=== PATIENT | female | born 2005 | race Caucasian/White ===

== ENCOUNTER 2024-09-20 12:47 | Outpatient (CLI) | payer OTHER, SELFPAY | END 2024-09-20 12:48 | disposition home or self-care (01) | LOC: AMB 09-21 13:35 | PROVIDERS: Visit Provider Family Medicine | DX: R45.851 Suicidal ideations (principal) | CPT/HCPCS: A0425; A0429 ==

== ENCOUNTER 2024-09-20 13:04 | Emergency (ER) | payer OTHER, SELFPAY ==
--- OUTSIDE RECORDS SUMMARY | 2024-08-21 10:20 | XMS_ITS | Encounter Summary ---
Author Organization [facility] Address [address] [place] [address] Support Name Relationship Address Phone Lawrence Yatessch Emergency Contact [address] [place] [address] Lawrence Holloway Emergency Contact [address] [place] [address] Jackie Bailon Personal Relationship [address] [place] [address] Care Team Providers Care Cat Scan Technologist Name Role Phone Maryam Barker M.D. Primary Care Provider Reason for Referral * Behavioral Health (Routine) - Closed Specialty Diagnoses / Procedures Referred By John duarte Referred To Contact Psychiatry / Psychiatry and Psychology Diagnoses Mood Disorder Terrance Bass M.D. [address] [address] Phone: tel: fax: [facility] Referral ID Status Reason Start Date Expiration Date V isits Requested Visits Authorized [id number] Closed Specialty Services Required 08/21/2024 02/20/2026 1 1 Reason for Visit * Appointment Request (Routine) - Closed Specialty Diagnoses / Procedures Referred By John duarte Referred To Contact Family Medicine Referral ID Status Reason Start Date Expiration Date Visits Re quested Visits Authorized [id number] Closed 08/13/2024 11/13/2025 1 1 Encounter Details Date Type Department Care Team (Late st Contact Info) Description 08/21/2024 10:20 AM CDT Office Visit Department of Family Medicine, [facility], in [place], [place] [address] [place] [address] Terrance Bass M.D. [address] [place] [address] Mood Disorder (Primary Dx); Seizure Absence (HCC) Social History Tobacco Use Types Packs/Day Years Used Date Smoking Tobacco: Never Smokeless Tobacco: Never Tobacco Cessation:Counseling Given: Not Answered Alcohol Use Standard Drinks/Week Comments Never 0 (1 standard drink = 0.6 oz pur e alcohol) [facility] Utilities Answer Date Recorded In the past 12 months has th e electric, gas, oil, or water company threatened to shut off services in your home? No 08/17/2024 PHQ-2 Answer Date Recorded PHQ-2 Score 5 09/04/2024 Exercise Vital Sign Answer Date Recorde d On average, how many days pe r week do you engage in moderate to strenuous exercise (like a brisk walk)? 3 days 08/17/2024 On average, how many minutes do you engage in exercise at this level? 20 min 08/17/2024 Hunger Vital Sign Answer Date Recorded Within the past 12 months, y ou worried that your food would run out before you got the money to buy more. Patient declined Within the past 12 months, t he food you bought just didn't last and you didn't have money to get more. Patient declined PRAPARE - Transportation Answer Date Re corded In the past 12 months, has l ack of transportation kept you from medical appointments or from getting medications? Patient declined 08/17/2024 In the past 12 months, has l ack of transportation kept you from meetings, work, or from getting things needed for daily living? Patient declined 08/17/2024 Depression Answer Date Recor ded PHQ-9 Total Score (max 27) 20 09/04 Nutrition Answer Date Recorded On average, how many serving s of fruits and vegetables do you eat per day (serving size is equal to 1 cup or approximately the size of a tennis ball)? 0-2 08/17/2024 Dental Answer Date Recorded Dental: Regular Dentist No 07/22/19 Employment Answer Date Recorded Employment status Unemployed/not in th e paid workforce and NOT seeking employment 08/17/2024 Housing Stability Answer Date Recorded What is your living situation today? I have a [facility] place to live 08/17/2024 Comments No Sex and Gender Information Value Date Recorded Sex Assigned at Female 07/22/2023 4:04 PM CDT Legal Sex Female 10:39 AM CDT Gender Identity Female 07/22/2023 4:04 PM CDT Sexual Orientation Straight 07/22/2023 4: 04 PM CDT documented as of this encounter Last Filed Vital Signs Vital Sign Reading Time Taken Comments Blood Pressure 114/75 08/21/2024 10:02 AM CDT Pulse 75 08/21/2024 10:02 AM CDT Temperature 36.3 C (97.4 F) 08/21/2024 10:02 AM CDT Respiratory Rate - - Oxygen Saturation - - Inhaled Oxygen Concentration - - Weight 64.4 kg (141 lb 15.6 oz) 025 10:02 AM CDT Height 164.5 cm (5' 4.76) 08/21/2024 1 0:02 AM CDT Body Mass Index 23.8 08/21/2024 10:02 AM CDT documented in this encounter Progress Notes * Terrance Bass M.D. - 08/21/2024 10:20 AM CDT DATE OF VISIT: 08/21/2024 SUBJECTIVE CHIEF COMPLAINT / REASON FOR VISIT Vivian Holloway is a 18 y.o. female who presents for evaluation of No chief complaint on file.. The patient verbally consented to an audio recording of their visit to assist with the completion of documentation. 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 She has experienced significant mood swings since her teenage years. Her mother notes that when shelived with her, she would become upset when asked to do things she did not want to do, often bringing up past issues and exhibiting violent behavior such as slamming doors. Since moving in with her father, her behavior has improved, but she still shows defiance, particularly as she becomes more comfortable with her new living situation. Her siblings can trigger her anger, which she holds onto forextended periods, often bringing up past arguments during unrelated disputes. There is a family history of mental health issues, including depression, anxiety, borderline personality disorder, and bipolar disorder. Her mother has anxiety and depression, her aunt has borderlinepersonality disorder, and her father and grandfather have bipolar disorder. She has a history of cutting, with incidents occurring last year, although there have been no suicidal attempts, only threats, which were also last year. She is currently on Depakote and Zonegran for seizures, which have never been fully controlled. Herseizures are characterized by a blank stare and rolling her eyes back, sometimes resulting in her falling over. She has a follow-up appointment with her neurologist scheduled for October 27. Her appetite is reported as good, and she eats three meals a day. However, when she lived with her mother, she often isolated herself in her room, avoided meals, and experienced a constant state of tiredness, sleeping only a few hours at a time. REVIEW OF SYSTEMS Please see HPI for pertinent positives, otherwise rest of ROS negative. OBJECTIVE VITAL SIGNS BP 114/75 (BP Location: Right arm, Patient Position: Sitting, Cuff Size: Regular) Pulse 75 Temp36.3 ??C (Temporal) Ht 164.5 cm Wt 64.4 kg LMP 07/28/2024 (Within Days) BMI 23.80 kg/m?? Physical Exam General: Alert and oriented x3. Appears in no acute distress. HEENT: Pupils equally round and reactive to light and accommodation. Extraocular movements are intact. Fundi exam appeared normal. Tympanic membranes are clear bilaterally. Oropharynx is free from erythema or exudate. Neck: Supple without any lymphadenopathy. No thyromegaly. Nontender. Cardiovascular: Heart regular rate and rhythm without any murmurs, rubs, or gallops. Respiratory: Lungs clear to auscultation bilaterally. 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 Family history of mental health disorders. Psychiatric referral needed for evaluation and management. - Refer to psychiatrist in [place] for mood disorder management. - Coordinate psychiatric and neurology appointments in October. - Discuss genetic testing for medication guidance. Orders: Psychiatry and Psychology - General consult (clinic); Future Seizure Absence (HCC) Seizures with blank stares and eye rolling, not controlled by Depakote and Zonegran. Under neurologist care. - Continue Depakote and Zonegran. - Follow up with neurologist on October 27. documented in this encounter Miscellaneous Notes * Assessment & Plan Note - Terrance Bass M.D. - 08/21/2024 10:20 AM CDT Associated Problem(s): Seizure Absence (HCC) Seizures with blank stares and eye rolling, not controlled by Depakote and Zonegran. Under neurologist care. - Continue Depakote and Zonegran. - Follow up with neurologist on October 27. documented in this encounter Plan of Treatment Upcoming Encounters Date Type Department Care Team (Latest Contact Info) Description 10/26/2024 9:30 AM CDT Appointment Department of Neurology in [address] [phone] Jie Mcintyre M.D. [address] [place] [phone] Discharge Disposition: Home or Self Care 10/27/2024 12:00 PM CDT Clinical Communication Virtual Review in [place], [place] [address] [place] [address] 10/29/2024 3:30 PM CDT Telemedicine Department of Neurology in [address] [phone] Jie Mcintyre M.D. [address] [place] [phone] 11/17/2024 11:00 AM CDT Comprehensive Visit Department of Neurology in [address] [phone] Alberto Holcomb M.D. [address] [place] [address] Scheduled Referrals Name Type Priority Associated Diagnoses Order Schedule Psychiatry and Psychology - General consult (clinic) Outpatient Referral Routine Mood Disorder (HCC) Expected: 08/21/2024, Expires: 11/20/2025 documented as of this encounter Visit Diagnoses Diagnosis Mood Disorder- Primary Seizure Absence (HCC) documented in this encounter Additional Health Concerns Assessment Noted Time PHQ-9 Depression Total Score: 17 023 1:22 PM DIVISION ENGINEER documented as of this encounter Care Teams Cat Scan Technologist Relationship Specialty Start Date End Date Maryam Barker M.D. [address] [place] [phone] PCP - General Family Medicine 01/29/23 documented as of this encounter
--- OUTSIDE RECORDS SUMMARY | 2024-09-13 16:25 | XMS_ITS | Encounter Summary ---
Author Organization [facility] Address [address] [place] [address] Support Name Relationship Address Phone Lawrence Amie Emergency Contact [address] [place] [address] Lawrence Holloway Emergency Contact [address] [place] [address] Jackie Bailon Personal Relationship [address] [place] [address] Care Team Providers Care Golf Course Starter Name Role Phone Maryam Barker M.D. Primary Care Provider Reason for Visit * Reason Comments Mental Health Problem Encounter Details Date Type Department Care Team ([facility] st Contact Info) Description 09/13/2024 4:25 PM CDT - 09/13/2024 11:59 PM CDT Emergency [facility] [address] [place] [phone] Discharge Disposition: Home or Self Care Social History Tobacco Use Types Packs/Day Years Used Date Smoking Tobacco: Never Smokeless Tobacco: Never Alcohol Use Standard Drinks/Week Comments Never 0 (1 standard drink = 0.6 oz pur e alcohol) [facility] Utilities Answer Date Recorded In the past 12 months has [employer], gas, oil, or water company threatened to [...] Date Recorded Dental: Regular Dentist No 07/22/19 24 Employment Answer Date Recorded Employment status Unemployed/not in e paid workforce and NOT seeking employment 08/17/2024 Housing Stability Answer Date Recorded What is your living situation today? I have a [facility] place to live 08/17/2024 Comments No Sex [...] AM CDT Appointment Department of Neurology in [place], [place] [address] [place] [phone] Jie Mcintyre M.D. [address] [place] [phone] Discharge Disposition: Home or Self Care 10/27/2024 12:00 PM CDT Clinical Communication Virtual Review in [place], [place] [address] [place] [phone] 10/29/2024 3:30 PM CDT Telemedicine Department of Neurology in [place], [place] [address] [place] [phone] Jie Mcintyre M.D. [address] [place] [phone] 11/17/2024 11:00 AM CDT Comprehensive Visit Department of Neurology in [place], [place] [address] [place] [phone] Alberto Holcomb M.D. [address] [place] [phone] documented as of this encounter Visit Diagnoses Not on filedocumented in this encounter Additional Health Concerns Assessment Noted Time PHQ-9 Depression Total Score: 20 025 2:11 PM CDT documented as of this encounter Care Teams Golf Course Starter Relationship Specialty Start Date End Date Maryam Barker M.D. NPGreer: [phone] [address] [place] [phone] PCP - General Family Medicine 01/29/23 documented as of this encounter
[2024-09-20 13:21] VITALS: BP 111/76; PULSE 74; RESP 16; TEMP 36.3; O2SAT 98
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
--- OUTSIDE RECORDS SUMMARY | 2024-09-20 15:24 | XMS_ITS | Clinical Summary ---
Author Organization [facility] Address [address] [place] [id number] Care Team Providers Care Requirements Engineer Name Role Phone Maryam Barker MD Primary Care Provi sary Allergies No known active allergies Medications No known medications Active Problems Problem Noted Date Diagnosed Date Intellectual delay 09/13/2024 Encounters Date Type Department Care Team Description 09/13/2024 4:25 PM CDT - 09/13/2024 6:45 PM CDT Emergency [facility] [address] [place] [id number] Chris Urias MD Suicidal behavior without attempted self-injury (Primary Dx); Intellectual delay Discharge Disposition: Home Self Care 09/13/2024 Travel from Last 3 Months Social History Tobacco Use Types Packs/Day Years Used Date Smoking Tobacco: Never Assessed Interpersonal Safety Answer Date Record ed Are you being hit, kicked, p ushed or yelled at (see row info)? No 09/13/2024 Interpersonal Safety Abuse 12 - 18 Not on file 09/13/2024 Interpersonal Safety Ambulatory Vulnerability No t on file 09/13/2024 Comments No Sex and Gender Information Value Date Recorded Sex Assigned at Not on file Legal Sex Female 11:01 AM CDT Gender Identity Not on file Sexual Orientation Not on file Last Filed Vital Signs Vital Sign Reading Time Taken Comments Blood Pressure 97/68 09/13/2024 4:25 PM CDT Pulse 98 09/13/2024 4:25 PM CDT Temperature 36.5 C (97.7 F) 09/13/2024 4:25 PM CDT Respiratory Rate 16 09/13/2024 4:25 PM CDT Oxygen Saturation 97% 09/13/2024 4:25 PM CDT Inhaled Oxygen Concentration - - Weight - - Height - - Body Mass Index - - Plan of Treatment Not on file Insurance * Guarantor: Vivian Holloway Account Type Relation to Patient Date of Phone Billing Address Personal/Family Self 2005 [address] [place] [address] [facility] Member Subscriber Plan / Payer (Ef fective 2023-Present) Name:Vivian Holloway Member ID:[id number] Relation to Subscriber:Child Name:Anastasiya Holloway Subscriber ID:[id number] Date of :1984 (Home) Address: [facility] [address] [place] [id number] Payer ID:[id number] (NAIC) Type:Not on file Address: [facility] [address] [place] [address] Care Teams Requirements Engineer Relationship Specialty Start Date End Date Maryam Barker MD [address] [place] [address] PCP - General Family Practice 09/13/24
--- OUTSIDE RECORDS SUMMARY | 2024-09-20 15:24 | XMS_ITS | Clinical Summary ---
Author Organization [facility] Address [address] [place] [address] Support Name Relationship Address Phone Elijah Chapman Emergency Contact [address] [place] [address] Elijah Chapman Emergency Contact [address] [place] [address] Jackie Bailon Personal Relationship [address] [place] [address] Care Team Providers Care Loadmaster Name Role Phone Maryam Barker M.D. Primary Care Provider Source Comments Patient records contain information from all sites at [facility]. For routine questions regarding patient records, call [phone] during business hours, M-F 8:00 AM - 5:00 PM Central Time. Record requests for emergency care only can be directed to [phone] at any time.[facility] Allergies Active Allergy Reactions Criticality Noted Date Comments Lamotrigine Rash Medium 11/23/2018 Medications * This document contains information received from the source organization and may not represent a complete record from that organization. zonisamide (Zonegran) 100 mg capsule 4 take 400 mg (4 capsules) at night 360 capsule 2 06/09/2024 Active divalproex (Depakote ER) 250 mg 24 hr tablet Take 3 tablets by mouth 2 (two) times a day. 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 Under neurologist care. - Continue Depakote and Zonegran. - Follow up with neurologist on October 27. Encounters * This document contains information received from the source organization and may not represent a complete record from that organization. Date Type Department Care Team Description 09/13/2024 4:25 PM CDT - 09/13/2024 11:59 PM CDT Emergency [facility] [address] [place] [address] Discharge Disposition: Home or Self Care 08/21/2024 10:20 AM CDT Office Visit Department of Family Medicine, [facility], in [place], [place] [address] [phone] Terrance Bass M.D. Mood Disorder (Primary Dx); Seizure Absence (HCC) 08/04/2024 Orders Only Department of Neurology in [place], [place] [address] [place] [address] Jie Mcintyre M.D. Epilepsy Seizure Generalized Nonconvulsive (HCC) (Primary Dx) 07/23/2024 Clinical Communication Department of Neurology in [place], [place] [address] [place] [address] Jie Mcintyre M.D. from Last 3 Months Immunizations Immunization Administration Dates Next Due DTaP (Infanrix, Tripedia) 12/30/2008,11/21/2005 DTaP / Hep B / IPV (Pediarix) 05/24/2005, 005,2004 HepA, Unspecified 10/07/2008,03/02/2008 HepB Pediatric/Adolescent 2004 Hib (HbOC) (discontinued) 11/21/2005,03/27/2005, 2004 Hib, Unspecified 12/30/2008,2004 IPV 12/30/2008,11/21/2005 Influenza, Seasonal, Injectable 04/03/2007,03/06 Influenza, Unspecified 03/12/2012,04/07/2010 MMR 12/30/2008 MMRV 11/21/2005 PCV7 (discontinued) 03/02/2008,05/24/2005,2004,2004 Family History Medical History Relation Name Comments Seizures Brother 1 Generalized Ton ic-Clonic, random in frequency ADD Brother 3 kirus Asthma Brother 3 kirus Seizures Brother 3 kirus ADD Brother 4 buddhist Asthma Brother 4 buddhist Bipolar disorder Father 1 Foreign Suicide Attempts Father 2 elijah RA - Rheumatoid arthritis Father's Sister Autism spectrum disorder Maternal Cousin 1 Heart Maternal Grandfather Pancreatic cancer Maternal Grandmother 1 Stage 4 Depression Maternal Grandmother 2 forrest Pancreatic cancer Maternal Grandmother 2 forrest Thyroid disease Maternal Grandmother 2 forrest ADD Mother 2 mohan Asthma Mother 2 mohan Depression Mother 2 mohan Learning disorder Mother 2 mohan out grew l earning disorder before graduating in 03 Thyroid disease Mother 2 mohan RA - Rheumatoid arthritis Mother's Sister 1 RA - Rheumatoid arthritis Mother's Sister 2 Thyroid disease Mother's Sister 3 aisha Bipolar disorder Paternal Grandfather COPD Paternal Grandmother Seizures Sister 1 Ally Absence at firs t, now adolescent seizure disorder Depression Sister 2 jammie Seizures Sister 2 jammie Relation Name Status Comments Brother 1 Alive Brother 2 Alive Brother 3 kirus Alive Brother 4 buddhist Alive Father 1 Foreign Father 2 elijah Alive Addiction Father's Sister Alive Half-Brother Alive Maternal Cousin 1 Alive Maternal Cousin 2 Alive A/W Maternal Cousin 3 Alive Maternal Grandfather Alive No curr ent contact Maternal Grandmother 1 Alive Maternal Grandmother 2 forrest Alive Mother 1 Lenny Alive IEP growing up Mother 2 mohan Alive Mother's Sister 1 Alive Mother's Sister 2 Alive Mother's Sister 3 aisha Alive Other 1 Alive Other 2 Alive Paternal Cousin 1 Alive Paternal Cousin 2 Alive Paternal Grandfather Alive Paternal Grandmother Alive Sister 1 Ally Alive WGS in progress Comprehension issues but doing well with support Sister 2 jammie Alive Social History Tobacco Use Types Packs/Day Years Used Date Smoking Tobacco: Never Smokeless Tobacco: Never Tobacco Cessation:Counseling Given: Not Answered Alcohol Use Standard Drinks/Week Comments Never 0 (1 standard drink = 0.6 oz pur e alcohol) [facility] Utilities Answer Date Recorded In the [...] your living situation today? I have a [facility] place to live 08/17/2024 Comments No Sex and Gender Information Value Date Recorded Sex Assigned at Female 07/22/2023 4:04 PM CDT Legal Sex Female 10:39 AM CDT Gender Identity Female 07/22/2023 4:04 PM CDT Sexual Orientation Straight 07/22/2023 4: 04 PM CDT Last Filed Vital Signs Vital Sign Reading Time Taken Comments Blood Pressure 107/73 09/04/2024 2:10 PM CDT Pulse 76 09/04/2024 2:10 PM CDT Temperature 36.3 C (97.4 F) 08/21/2024 10:02 AM CDT Respiratory Rate 15 04/10/2023 1:26 PM [employer]LECT[employer]ICIAN TELE[employer] Oxygen Saturation - - Inhaled Oxygen Concentration - - Weight 61.9 kg (136 lb 7.4 oz) 09/04/2024 2:10 P M CDT Height 163 cm (5' 4.17) 09/04/2024 2:10 PM CDT Body Mass Index 23.3 09/04/2024 2:10 PM CDT Plan of Treatment Upcoming Encounters Date Type Department Care Team (Latest Contact Info) Description 10/26/2024 9:30 AM CDT Appointment Department of Neurology in [address] [phone] Jie Mcintyre M.D. [address] [place] [phone] Discharge Disposition: Home or Self Care 10/27/2024 12:00 PM CDT Clinical Communication Virtual Review in [place], [place] [address] [place] [address] 10/29/2024 3:30 PM CDT Telemedicine Department of Neurology in [address] [address] Jie Mcintyre M.D. [address] [place] [phone] 11/17/2024 11:00 AM CDT Comprehensive Visit Department of Neurology in [address] [address] Alberto Holcomb M.D. [address] [place] [phone] Health Maintenance Due Date Last Done Comments Hepatitis C Screening 2004 TB Screening during Well Child Visit 2004 1 week Well Child Check-Up 2004 1 month Well Child Check-Up 2004 2 month Well Child Check-Up 2004 4 month Well Child Check-Up 02/12/2005 9 month Well Child Check-Up 07/13/2005 15 month Well Child Check-Up 01/13/2006 18 month Well Child Check-Up 04/14/2006 2 year Well Child Check-Up 10/13/2006 30 month Well Child Check-Up 04/14/2007 3 year Well Child Check-Up 10/14/2007 Well Child Check-Up Completed in Past Year 10/14/2007 Varicella Vaccines (2 of 2 - 2-dose childhood series) 01/27/2009 11/21/2005 5 year Well Child Check-Up 10/13/2009 6 year Well Child Check-Up 10/13/2010 7 year Well Child Check-Up 10/14/2011 8 year Well Child Check-Up 10/13/2012 10 year Well Child Check-Up 10/13/2014 DTaP,Tdap,and Td Vaccines (6 - Tdap) 11/13/2015 12/30/2008, 11/21/2005, 05/24/2005, Additional history exists 12 year Well Child Check-Up 10/13/2016 13 year Well Child Check-Up 10/13/2017 14 year Well Child Check-Up 10/13/2018 15 year Well Child Check-Up 10/14/2019 HPV Vaccines (1 - 3-dose series) 11/13/2019 17 year Well Child Check-Up 10/13/2021 19 year Well Child Check-Up 10/14/2023 Well Child Check-Up ([facility]) 10/14/2023 COVID-19 Vaccine ( season) 2023 Influenza Vaccine (#1) 2024 6, 03/12/2012, 04/07/2010, Additional history exists Vision Screening during Well Child Visit 04/10/2027 04/10/2023 Hepatitis B Vaccines Completed 05/24/2005, 03/27/2005, 2004, Additional history exists Pneumococcal vaccine (0-49 years) Aged Out 03/02/2008, 05/24/2005, 03/27/2005, Additional history exists No longer eligible based on patient's age to complete this topic IPV Vaccines Completed 12/30/2008, 07/09/2005, 05/24/2005, Additional history exists MMR Vaccines Completed 12/30/2008, 11/21/2005 18 year Well Child Check-Up Completed 04/10/2023 Hearing Screening during Well Child Visit Completed 04/10/2023 Anemia/Iron Deficiency Screening During Well Child Visit (if High Risk Menstruating Female) Completed 07/23/2023 Depression Screening (Annual PHQ-2) Completed 08/21/2024, 08/17/2024 Meningococcal Vaccine Aged Out No bonnie jone eligible based on patient's age to complete this topic Procedures Procedure Name Priority Date/Time Associated Diagnosis Comments CBC WITH DIFFERENTIAL, B Routine 07/23/2023 11:30 AM CDT Seizure Absence (HCC) Seizure (HCC) from Last 3 Months or Most Recently Relevant to Health Maintenance Results * (ABNORMAL) CBC with Differential, Blood (07/23/2023 11:30 AM CDT) Hemoglobin 13.9 11.6 - 15.0 g/dL 07/23/2023 12:13 PM CDT DTL Hematocrit 41.8 35.5 - 44.9 % 07/23/2023 12:13 PM CDT DTL Erythrocytes 4.39 3.92 - 5.13 x10(12)/L 07/23/2023 12:13 PM CDT DTL MCV 95.2 78.2 - 97.9 fL 07/23/2023 12:13 PM CDT DTL RBC Distrib Width 11.6(L) 12.2 - 16.1 % 07/23/2023 12:13 PM CDT DTL Platelet Count 346 157 - 371 x10(9)/L 07/23/2023 12:13 PM CDT DTL Leukocytes 7.0 3.4 - 9.6 x10(9)/L 07/23/2023 12:13 PM CDT DTL Neutrophils 3.37 1.56 - 6.45 x10(9)/L 07/23/2023 12:13 PM CDT DHPM Lymphocytes 2.75 0.95 - 3.07 x10(9)/L 07/23/2023 12:13 PM CDT DTL Monocytes 0.69 0.26 - 0.81 x10(9)/L 07/23/2023 12:13 PM CDT DTL Eosinophils 0.11 0.03 - 0.48 x10(9)/L 07/23/2023 12:13 PM CDT DTL Basophils 0.03 0.01 - 0.08 x10(9)/L 07/23/2023 12:13 PM CDT DTL Blood (Blood, Venous) 07/23/2023 11:30 AM CDT 07/23/2023 11:52 AM CDT Jie Mcintyre M.D. LAB BLOOD ADD-ON Final Result [facility] [address] [place] [address], [place] DTL [facility] [address] [place] [address] DHPM [facility] [address] [place] [address] from Last 3 Months or Most Recently Relevant to Health Maintenance Insurance * Guarantor: Vivian Chapman Account Type Relation to Patient Date of Phone Billing Address Personal/Family Self 2005 [facility] [address] [place] [address] [employer] [facility] Member Subscriber Plan / Payer (Ef fective 2022-Present) Name:VIVIAN CHAPMAN Member ID:[id number] Relation to Subscriber:Child Name:LENNY CHAPMAN Subscriber ID:[id number] Date of :2005 (Home) Address: [facility] [address] [place] [address] Payer ID:Not on file Type:PPO Address: [facility] [address] [place] [address] Care Teams Loadmaster Relationship Specialty Start Date End Date Maryam Barker M.D. [address] [place] [phone] PCP - General Family Medicine 01/29/23
--- OUTSIDE RECORDS SUMMARY | 2024-09-20 15:24 | XMS_ITS | Encounter Summary ---
Author Organization [facility] Address [address] [place] [address] Support Name Relationship Address Phone Lawrence Yatessch Emergency Contact [address] [place] [address] Lawrence Holloway Emergency Contact [address] [place] [address] Jackie Bailon Personal Relationship [address] [place] [address] Care Team Providers Care Industrial Engineering Analyst Name Role Phone Maryam Barker M.D. 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 [address] [place] [address] Phone: tel: fax: [facility] Referral ID Status Reason Start Date Expiration Date V isits Requested Visits Authorized [id number] Authorized 08/14/2024 11/14/2025 1 1 Encounter Details Date Type Department Care Team (Late st Contact Info) Description 07/23/2024 Clinical Communication Department of Neurology in [place], [place] [address] [place] [phone] Jie Mcintyre M.D. [address] [place] [phone] Social History Tobacco Use Types Packs/Day Years Used Date Smoking Tobacco: Never Smokeless Tobacco: Never Alcohol Use Standard Drinks/Week Comments Never 0 (1 standard drink = 0.6 oz pur e alcohol) [facility] Utilities Answer Date Recorded In the past 12 months has e electric, gas, oil, or water company threatened to shut off services in your home? No 08/17/2024 PHQ-2 Answer Date Recorded PHQ-2 Score 2 08/17/2024 Exercise Vital Sign Answer Date Recorde d [...] Recor ded PHQ-9 Total Score (max 27) 17 04/10 Nutrition Answer Date Recorded On average, how [...] your living situation today? I have a [facility] place to live 08/17/2024 Comments Unknown Sex and Gender Information Value Date Recorded Sex Assigned at Female 07/22/2023 4:04 PM CDT Legal Sex Female 10:39 AM CDT Gender Identity Female 07/22/2023 4:04 PM CDT Sexual Orientation Straight 07/22/2023 4: 04 PM CDT documented as of this encounter Plan of Treatment Upcoming Encounters Date Type Department Care Team (Latest Contact Info) Description 10/26/2024 9:30 AM CDT Appointment Department of Neurology in [place], [place] [address] [place] [phone] Jie Mcintyre M.D. [address] [place] [phone] Discharge Disposition: Home or Self Care 10/27/2024 12:00 PM CDT Clinical Communication Virtual Review in [place], [place] 200 [place] [address] 10/29/2024 3:30 PM CDT Telemedicine Department of Neurology in [address] [phone] Jie Mcintyre M.D. [address] [place] [phone] 11/17/2024 11:00 AM CDT Comprehensive Visit Department of Neurology in [address] [phone] Alberto Holcomb M.D. 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 NPGreer: [phone] [address] [facility] [place] [address] PCP - General Family Medicine 01/29/23 documented as of this encounter
--- OUTSIDE RECORDS SUMMARY | 2024-09-20 15:24 | XMS_ITS | Encounter Summary ---
Author Organization [facility] Address [address] [place] [address] Support Name Relationship Address Phone Lawrence Amie Emergency Contact [address] [place] [address] Lawrence Holloway Emergency Contact [address] [place] [address] Jackie Bailon Personal Relationship [address] [place] [address] Care Team Providers Care Grating Machine Operator Name Role Phone Maryam Barker M.D. Primary Care Provider Reason for Referral * Outpatient (Routine) - Authorized Specialty Diagnoses / Procedures Referred By John duarte Referred To Contact Neurology Diagnoses Epilepsy Seizure Generalized Nonconvulsive (HCC) Jie Mcintyre M.D. [address] [place] [phone] Phone: tel: fax: [facility] Referral ID Status Reason Start Date Expiration Date V isits Requested Visits Authorized [id number] Authorized 08/04/2024 02/03/2026 1 1 * Outpatient (Routine) - Authorized Specialty Diagnoses / Procedures Referred By John duarte Referred To Contact Child and Adolescent Neurology Jie Mcintyre M.D. [address] [place] [phone] Phone: tel: fax: [facility] Referral ID Status Reason Start Date Expiration Date V isits Requested Visits Authorized [id number] Authorized 08/04/2024 02/03/2026 1 1 Encounter Details Date Type Department Care Team (Late st Contact Info) Description 08/04/2024 Orders Only Department of Neurology in [place], [place] [address] [place] [address] Jie Mcintyre M.D. 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 I have a [facility] place to live 08/17/2024 Comments Unknown Sex [...] AM CDT Appointment Department of Neurology in [place], [place] [address] [place] [phone] Jie Mcintyre M.D. [address] [place] [phone] Discharge Disposition: Home or Self Care 10/27/2024 12:00 PM CDT Clinical Communication Virtual Review in [place], [place] 200 [place] [address] 10/29/2024 3:30 PM CDT Telemedicine Department of Neurology in [place], [place] [address] [place] [phone] Jie Mcintyre M.D. [address] [place] [phone] 11/17/2024 11:00 AM CDT Comprehensive Visit Department of Neurology in [place], [place] [address] [place] [phone] Alberto Holcomb M.D. [address] [place] [phone] Scheduled Referrals Name Type Priority Associated Diagnoses Orde r Schedule Pediatric Neurology office visit (clinic) Outpatient Referral Routine Expected: 08/04/2024, Expires: 11/03/2025 Neurology - Epilepsy consult (clinic) Outpatient Referral Routine Epilepsy Seizure Generalized Nonconvulsive (HCC) Expected: 08/04/2024 (Approximate), Expires: 11/03/2025 documented as of this encounter Visit Diagnoses Diagnosis Epilepsy Seizure Generalized Nonconvulsive (HCC)- Primary documented in this encounter Additional Health Concerns Assessment Noted Time PHQ-9 Depression Total Score: 17 04/10/ 023 1:22 PM WIRE STITCHER MACHINE documented as of this encounter Care Teams Grating Machine Operator Relationship Specialty Start Date End Date Maryam Barker M.D. [address] [place] [address] PCP - General Family Medicine 01/29/23 documented as of this encounter
[2024-09-20 15:33] LABS: Basophils Absolute Auto 0.03 K/uL (0.00-0.30); Basophils Percent Auto 0.5 % (0.0-3.0); Eosinophils Absolute Auto 0.08 K/uL (0.00-0.50); Eosinophils Percent Auto 1.2 % (0.0-7.0); Hematocrit 36.5 % (33.0-51.0); Hemoglobin* 12.4 gm/dL (12.0-16.0); Immature Granulocytes Abs Auto 0.05 K/uL (0.00-0.30); Immature Granulocytes Pct Auto 0.8 %; Lymphocytes Percent Auto 27.9 % (20-44); Mean Corpuscular HGB Conc 34 gm/dL (32-36); Mean Corpuscular Hemoglobin 33 pg (26-34); Mean Corpuscular Volume 96 fL (80-100); Monocytes Percent Auto 9.1 % (0.0-11.0); Neutrophils Absolute Auto 3.91 K/uL (1.7-7.0); Neutrophils Percent Auto 60.5 % (42.0-72.0); Platelet Count* 290 K/uL (140-440); RDW Coefficient of Variation % 12.3 % (11.5-15.5); Red Blood Count 3.81 m/uL (4.00-5.20); White Blood Count* 6.46 K/uL (4.50-11.00)
[2024-09-20 15:37] LABS: Slide Review Reflex No
[2024-09-20 15:48] LABS: Chloride* 107 mmol/L (96-114)
[2024-09-20 15:49] LABS: Potassium* 3.9 mmol/L (3.6-5.1); Sodium* 141 mmol/L (135-149)
[2024-09-20 15:51] LABS: Alanine Aminotransferase* 16 U/L (4-35); Alkaline Phosphatase* 43 U/L (40-150); Anion Gap 9 mEq/L (7-15); Aspartate Amino Transferase* 25 U/L (12-35); Bilirubin Direct* 0.3 mg/dL (0.0-0.5); Bilirubin Total* 0.7 mg/dL (0.1-1.5); Blood Urea Nitrogen* 15 mg/dL (5-24); Calcium* 9.5 mg/dL (8.7-10.8); Carbon Dioxide* 25 mmol/L (20-32); Creatinine* 0.8 mg/dL (0.6-1.2); Estimated Glomerular Filt Rate 109 ml/min; Glucose* 124 mg/dL (60-115)
[2024-09-20 15:52] LABS: Amphetamine Screen Urine Negative (Negative); Barbiturate Screen Urine Negative (Negative); Benzodiazepines Screen Urine Negative (Negative); Cannabinoid Screen Urine Negative (Negative); Cocaine Screen Urine Negative (Negative); Methadone Screen Urine Negative (Negative); Methamphetamines Screen Urine Negative (Negative); Opiate Screen Urine Negative (Negative); Oxycodone Screen Urine Negative (Negative); Phencyclidine Screen Urine Negative (Negative); Tricyclic Antidepressant Urine Negative (Negative)
[2024-09-20 15:54] LABS: Ur HCG Qualitative* Negative (Negative)
[2024-09-20 15:55] LABS: Acetaminophen* < 10.0 ug/mL (10.0-30.0); Ethanol* < 0.01 % (0.01-0.03); Salicylate* < 1.0 mg/dL (1.0-10)
[2024-09-20 16:44] VITALS: BP 114/72; PULSE 81; RESP 18; O2SAT 100
[2024-09-20] MEDS: DIVALPROEX DELAYED RELEASE 250 MG TABLET 500 MG PO (17:06)
[2024-09-20 18:22] LABS: TSH With Reflex to FT4* 0.643 uIU/mL (0.270-4.200)
--- NOTE | 2024-09-20 21:10 | PC.NURSE ---
pt changed into paper scrubs per hospital policy, cooperative with cares at this time, water to room
--- NOTE | 2024-09-20 23:36 | PC.NURSE ---
[facility] declines patient due to cogitative abilities, not a good fit for our unit at this time
[2024-09-21 05:25] VITALS: BP 112/70; PULSE 85; RESP 18; TEMP 36.7; O2SAT 100
[2024-09-21 10:00] VITALS: BP 107/66; PULSE 71; RESP 16; TEMP 36.6; O2SAT 99
== END 2024-09-21 10:10 | disposition home or self-care (01) ==
PROVIDERS: Family Medicine; Emergency Provider Emergency Medicine
DX: R45.851 Suicidal ideations (principal); R45.4 Irritability and anger; Q99.9 Chromosomal abnormality, unspecified
CPT/HCPCS: 36415; 80048; 80076; 80143; 80179; 80306; 81025; 82077; 84443; 85025; 99283; 99284; A9270

== ENCOUNTER 2024-10-09 21:23 | Emergency (ER) | payer OTHER, MEDICAID, SELFPAY ==
--- OUTSIDE RECORDS SUMMARY | 2024-09-13 16:25 | XMS_ITS | Encounter Summary ---
Author Organization [facility] Address [address] [place] [address] Care Team Providers Care Covered Buckle Assembler Name Role Phone Maryam Barker M.D. Primary Care Provider Reason for Visit * Reason Comments Mental Health Problem Encounter Details Date Type Department Care Team (Late st Contact Info) Description 09/13/2024 4:25 PM CDT - 09/13/2024 11:59 PM CDT Emergency [facility] [address] [place] [phone] Discharge Disposition: Home or Self Care Social History Tobacco Use Types Packs/Day Years Used Date Smoking Tobacco: Never Smokeless Tobacco: Never Alcohol Use Standard Drinks/Week Comments Never 0 (1 standard drink = 0.6 oz pur e alcohol) [facility] Utilities Answer Date Recorded In the past 12 months has [employer], gas, oil, or water company threatened [...] your living situation today? I have a [facility] place to live 08/17/2024 Comments No Sex and Gender Information Value Date Recorded Sex Assigned at Female 07/22/2023 4:04 PM CDT Legal Sex Female 10:39 AM CDT Gender Identity Female 07/22/2023 4:04 PM CDT Sexual Orientation Straight 07/22/2023 4: 04 PM CDT documented as of this encounter Medications at Time of Discharge divalproex (Depakote ER) 250 mg 24 hr tablet Take 3 tablets by mouth 2 (two) times a day. 12/08/2021 zonisamide (Zonegran) 100 mg capsule 4 take 400 mg (4 capsules) at night 360 capsule 2 06/09/2024 documented as of this encounter Plan of Treatment Upcoming Encounters Date Type Department Care Team (Latest Contact Info) Description 10/26/2024 9:30 AM CDT Appointment Department of Neurology in [place], [place] [address] [place] [phone] Jie Mcintyre M.D. [address] [place] [phone] Discharge Disposition: Home or Self Care 10/27/2024 12:00 PM CDT Clinical Communication Virtual Review in [place], [place] [address] [place] [address] 10/29/2024 3:30 PM CDT Telemedicine Department of Neurology in [place], [place] [address] [place] [phone] Jie Mcintyre M.D. [address] [place] [phone] 11/17/2024 11:00 AM CDT Comprehensive Visit Department of Neurology in [place], [place] [address] [place] [phone] Alberto Holcomb M.D. [address] [place] [phone] documented as of this encounter Visit Diagnoses Not on filedocumented in this encounter Additional Health Concerns Assessment Noted Time PHQ-9 Depression Total Score: 20 025 2:11 PM CDT documented as of this encounter Care Teams Covered Buckle Assembler Relationship Specialty Start Date End Date Maryam Barker M.D. [address] [phone] PCP - General Family Medicine 01/29/23 documented as of this encounter
--- OUTSIDE RECORDS SUMMARY | 2024-09-22 11:20 | XMS_ITS | Encounter Summary ---
Author Organization [facility] Address [address] [place] [address] Care Team Providers Care Records Tech Name Role Phone Maryam Barker M.D. Primary Care Provider Reason for Visit * Reason Comments Medication Review Patient would like t o renew her antiseizure medication and add Paroxetine CR per psychiatrist. Encounter Details Date Type Department Care Team (Late st Contact Info) Description 09/22/2024 11:20 AM CDT Telemedicine Department of Family Medicine, [facility], in [place], [place] [address] [place] [phone] Simran Solis M.D. [address], [place] [phone] Depressive Disorder (Primary Dx); Anxiety; Suicide Ideation Social History Tobacco Use Types Packs/Day Years Used Date Smoking Tobacco: Never Smokeless Tobacco: Never Tobacco Cessation:Counseling Given: Not Answered Alcohol Use Standard Drinks/Week Comments Never 0 (1 standard drink = 0.6 oz pur e alcohol) [facility] Utilities Answer Date Recorded In the past 12 months has e electric, gas, oil, or water company threatened to shut off services in your home? No 08/17/2024 PHQ-2 Answer Date Recorded PHQ-2 Score 2 09/22/2024 Exercise Vital Sign Answer Date Recorde d [...] PHQ-9 Total Score (max 27) 12 09/22 Nutrition Answer Date Recorded On average, how [...] your living situation today? I have a [facility] place to live 08/17/2024 Comments No [...] history of cognitive challenges, functioning at an rvmak-gfjy-zue level despite being almost [age]. Her social [...] requiring intervention. Cognitive development leander to an qmdeq-gamq-arg per father which complicates understanding of consequences. [...] AM CDT Appointment Department of Neurology in [address] [phone] Jie Mcintyre M.D. [address] [place] [phone] Discharge Disposition: Home or Self Care 10/27/2024 12:00 PM CDT Clinical Communication Virtual Review in [place], [place] [address] [place] [address] 10/29/2024 3:30 PM CDT Telemedicine Department of Neurology in [address] [phone] Jie Mcintyre M.D. [address] [place] [phone] 11/17/2024 11:00 AM CDT Comprehensive Visit Department of Neurology in [place], [place] [address] [place] [address] Alberto Holcomb M.D. [address] [place] [address] documented as of this encounter Visit Diagnoses Diagnosis Depressive Disorder- Primary Anxiety Suicide Ideation documented in this encounter Additional Health Concerns Assessment Noted Time PHQ-9 Depression Total Score: 12 025 11:19 AM CDT documented as of this encounter Care Teams Records Tech Relationship Specialty Start Date End Date Maryam Barker M.D. [address] [place] [phone] PCP - General Family Medicine 01/29/23 documented as of this encounter
--- OUTSIDE RECORDS SUMMARY | 2024-10-09 21:27 | XMS_ITS | Clinical Summary ---
Author Organization [facility] Address [address] [place] [address] Care Team Providers Care Mortgage Loan Underwriter Name Role Phone Maryam Barker MD Primary Care Provi sary Allergies No known active allergies Medications No known medications Active Problems Problem Noted Date Diagnosed Date Intellectual delay 09/13/2024 Encounters Date Type Department Care Team Description 09/13/2024 4:25 PM CDT - 09/13/2024 6:45 PM CDT Emergency [facility] [address] [place] [phone] Chris Urias MD Suicidal behavior without attempted self-injury (Primary Dx); Intellectual delay Discharge Disposition: Home Self Care 09/13/2024 Travel from Last 3 Months Social History Tobacco Use Types Packs/Day Years Used Date Smoking Tobacco: Never Assessed Interpersonal Safety Answer Date Record ed Are you being hit, kicked, p ushed or yelled at (see row info)? No 09/13/2024 Interpersonal Safety Abuse - 18 Not on file 09/13/2024 Interpersonal [...] Billing Address Personal/Family Self 2005 [address] [place] [address] [facility] Member Subscriber Plan / Payer (Ef fective 2023-Present) Name:Vivian Holloway Member ID:[id number] Relation to Subscriber:Child Name:Anastasiya Holloway Subscriber ID:[id number] Date of :1984 (Home) Address: [facility] [address] [place] [address] Payer ID:[id number] (NAIC) Type:Not on file Address: [facility] [address] [place] [address] Care Teams Mortgage Loan Underwriter Relationship Specialty Start Date End Date Maryam Barker MD [address] [place] [address] PCP - General Family Practice 09/13/24
--- OUTSIDE RECORDS SUMMARY | 2024-10-09 21:27 | XMS_ITS | Clinical Summary ---
Author Organization [facility] Address [address] [place] [address] Care Team Providers Care Collection Officer Name Role Phone Maryam Barker M.D. Primary Care Provider Source Comments Patient records contain information from all sites at [facility]. For routine questions regarding patient records, call [phone] during business hours, M-F 8:00 AM - 5:00 PM Central Time. Record requests for emergency care only can be directed to [phone] at any time.[facility] Allergies Active Allergy Reactions Criticality Noted Date [...] 2 (two) times a day. 12/08/2021 Active PARoxetine (PaxiL CR) 12.5 mg 24 hr tabletIndicatio ns:Depressive Disorder,Anxiet y Take 1 tablet (12.5 mg total) by mouth daily. 90 tablet 3 09/22/2024 6 Active Active Problems Problem Noted Date Diagnosed [...] organization. Date Type Department Care Team Description 09/22/2024 11:20 AM CDT Telemedicine Department of [facility] Medicine, [facility], [place], [place] [address] [place] [phone] Simran Solis M.D. Depressive Disorder (Primary Dx); Anxiety; Suicide Ideation 09/13/2024 4:25 PM CDT - 09/13/2024 11:59 PM CDT Emergency [facility] [address] [place] [phone] Discharge Disposition: Home or Self Care 08/21/2024 10:20 AM CDT Office Visit Department of Family Medicine, [facility], [place], [place] [address] [phone] Terrance Bass M.D. Mood Disorder (Primary Dx); Seizure Absence (HCC) 08/04/2024 Orders Only Department of Neurology in [place], [place] [address] [place] [address] Jie Mcintyre M.D. Epilepsy Seizure Generalized Nonconvulsive (HCC) (Primary Dx) 07/23/2024 Clinical Communication Department of Neurology in [place], [place] [address] [place] [address] Jie Mcintyre M.D. from Last 3 Months Immunizations Immunization Administration Dates Next Due DTaP (Infanrix, Tripedia) 12/30/2008,11/21/2005 DTaP / Hep B / IPV (Pediarix) 05/24/2005, 005,2004 HepA, Unspecified 10/07/2008,03/02/2008 HepB Pediatric/Adolescent 2004 Hib (HbOC) (discontinued) 11/21/2005,03/27/2005, 2004 Hib, Unspecified 12/30/2008,2004 IPV 12/30/2008,11/21/2005 Influenza, Seasonal, Injectable 04/03/2007,03/06 Influenza, Unspecified 03/12/2012,04/07/2010 MMR 12/30/2008 MMRV 11/21/2005 PCV7 (discontinued) 03/02/2008, 6,03/27/2005,2004 influenza vaccine quad (FLUZONE/FLUARIX) (6 months and older)(PF) 07/28/2015 Family History Medical History Relation Name Comments Seizures Brother 1 Generalized Ton ic-Clonic, random in frequency ADD Brother 3 kirus Asthma Brother 3 kirus Seizures Brother 3 kirus ADD Brother 4 jain Asthma Brother 4 jain Bipolar disorder Father 1 Foreign Suicide Attempts [...] grew l earning disorder before graduating in Thyroid disease Mother 2 mohan RA - [...] Alive Brother 3 kirus Alive Brother 4 jain Alive Father 1 Foreign Father 2 elijah Alive Addiction Father's Sister Alive Half-Brother Alive Maternal Cousin 1 Alive Maternal Cousin 2 Alive A/W Maternal Cousin 3 Alive Maternal Grandfather Alive No curr ent contact Maternal Grandmother 1 Alive Maternal Grandmother 2 forrest Alive Mother 1 Sabine Alive IEP growing up Mother 2 mohan Alive Mother's Sister 1 Alive Mother's Sister 2 Alive Mother's Sister 3 aisha Alive Other 1 Alive Other 2 Alive Paternal Cousin 1 Alive Paternal Cousin 2 Alive Paternal Grandfather Alive Paternal Grandmother Alive Sister 1 Mohity Alive WGS in progress Comprehension issues but doing well with support Sister 2 jammie Alive Social History Tobacco Use Types Packs/Day Years Used Date Smoking Tobacco: Never Smokeless Tobacco: Never Tobacco Cessation:Counseling Given: Not Answered Alcohol Use Standard Drinks/Week Comments Never 0 (1 standard drink = 0.6 oz pur e alcohol) [facility] Utilities Answer Date Recorded In the past [...] living situation today? I have a [facility] place to live 08/17/2024 Comments [...] CDT Respiratory Rate 15 04/10/2023 1:26 PM [employer] Oxygen Saturation - - Inhaled Oxygen Concentration - - Weight 61.9 kg (136 lb 7.4 oz) 09/04/2024 2:10 P M CDT Height 163 cm (5' 4.17) 09/04/2024 2:10 PM CDT Body Mass Index 23.3 09/04/2024 2:10 PM CDT Plan of Treatment Upcoming Encounters Date Type Department Care Team (Latest Contact Info) Description 10/26/2024 9:30 AM CDT Appointment Department of Neurology in [place], [place] [address] [place] [phone] Jie Mcintyre M.D. [address] [place] [phone] Discharge Disposition: Home or Self Care 10/27/2024 12:00 PM CDT Clinical Communication Virtual Review in [place], [place] [address] [place] [address] 10/29/2024 3:30 PM CDT Telemedicine Department of Neurology in [place], [place] [address] [place] [phone] Jie Mcintyre M.D. [address] [place] [phone] 11/17/2024 11:00 AM CDT Comprehensive Visit Department of Neurology in [place], [place] [address] [place] [address] Alberto Holcomb M.D. [address] [place] [address] Health Maintenance Due Date Last Done Comments [...] Well Child Check-Up 10/14/2023 Well Child Check-Up (WCC) 10/14/2023 COVID-19 Vaccine ( season) 2023 Influenza Vaccine (#1) 2024 6, 03/12/2012, 04/07/2010, Additional history exists Vision Screening during Well Child Visit 04/10/2027 04/10/2023 Hepatitis B Vaccines Completed 05/24/2005, 03/27/2005, 2004, Additional history exists Pneumococcal vaccine (0-49 years) Aged Out 03/02/2008, 05/24/2005, 03/27/2005, Additional history exists No longer eligible based on patient's age to complete this topic IPV Vaccines Completed 12/30/2008, 10/28, 05/24/2005, Additional history exists MMR Vaccines Completed 12/30/2008, 11/21/2005 17 year Well Child Check-Up Completed 04/10/2023 Hearing Screening during Well Child Visit Completed 04/10/2023 Anemia/Iron Deficiency Screening During Well Child Visit (if High Risk Menstruating Female) Completed 07/23/2023 Depression Screening (Annual PHQ-2) Completed 09/22/2024, 08/21/2024 Meningococcal Vaccine Aged Out No bonnie jone [...] Mcintyre M.D. LAB BLOOD ADD-ON Final Result Performing Organization Address City/State/[facility] Co de Phone Number [facility] [place] [address] [place] [address], [place] DTL [facility] [address] [place] [address] DHPM [facility] [address] [place] [address] from Last 3 Months or Most Recently Relevant to Health Maintenance Insurance [employer] [facility] Member Subscriber Plan / Payer (Ef fective 2022-Present) Name:VIVIAN HOLLOWAY Member ID:[id number] Relation to Subscriber:Child Name:SABINE HOLLOWAY Subscriber ID:[id number] Date of :2005 (Home) Address: [address] [place] [address] Payer ID:Not on file Type:PPO Address: [facility] [address] [place] [address] Care Teams Collection Officer Relationship Specialty Start Date End Date Maryam Barker M.D. [address] [place] [phone] PCP - General Family Medicine 01/29/23
[2024-10-09 21:35] VITALS: BP 107/71; PULSE 72; RESP 18; TEMP 36.6; O2SAT 97; BMI 22.5
--- NOTE | 2024-10-09 21:42 | ED.GENADULT ---
HPI - General Adult General Chief complaint: Skin/Abscess/Foreign Body Stated complaint: bump on the neck Time Seen by Provider: 10/09/24 21:37 History of Present Illness HPI narrative: Pt here for a bump on her L neck. Was seen on Saturday in clinic and started on antibiotics. Pain is increasing so presents to the ED. No meds for pain. Has tried some ice w/o relief. Denies fevers. 18-year-old young woman presenting to the emergency department Seen in clinic 2 days ago with a posterior neck lump thought to be a reactive lymph node and with folliculitis. No fever. I enter the room as gianluca is alerting that is having a seizure. Apparently has 2 or 3 seizures daily regularly. Is managed with zonisamide. I did see Ondina here in this emergency department with suicidal ideation about 5 weeks ago. Seizures are usually less intense than this current 1 mom describes. Apparently has been scheduled for an EEG later in the month. They do not think labs have been drawn in the last year though I am able to review records and with the mental health visit here was drawn for general labs all of which looked normal. Will check for zonisamide level yet. Related Data Home Medications ?Medication ?Instructions ?Recorded ?Confirmed zonisamide 100 mg capsule 400 mg PO DAILY 09/20/24 10/09/24 paroxetine HCl 12.5 mg 12.5 mg PO DAILY 10/09/24 10/09/24 tablet,extended release 24 hr Previous Rx's ?Medication ?Instructions ?Recorded cephalexin 500 mg capsule 500 mg PO TID 10 days #30 caps 10/07/24 Allergies Allergy/AdvReac Type Severity Reaction Status Date / Time No Known Drug Allergies Allergy Verified 10/09/24 21:38 Review of Systems Status of ROS: Reports: unobtainable due to mental status [facility] Medical History Epilepsy ?G40.909 - Epilepsy, unspecified, not intractable, without status epilepticus (ICD-10) Depression with anxiety ?F41.8 - Other specified anxiety disorders (ICD-10) Cognitive developmental delay ?F81.9 - Developmental disorder of scholastic skills, unspecified (ICD-10) 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, unspecified (ICD-10) Surgical History No history of previous surgery Family History Maternal Grandmother Pancreatic cancer Mother Diabetes Sister Seizure disorder Brother Seizure disorder Other Chromosomal disorder Social History Narrative: Single, no occupation, lives with father and father's fiancee Exercises daily by biking and skateboarding Never smoker No drug use No alcohol use What is your current living situation?: I presently have a place to live Problems where you live: no known problems In the past 12 months, utilities in danger of being shut off: no In past 12 months, lack of transportation kept you from medical appts, meetings, work, or getting things needed for daily living: no In the past 12 mos, have been you worried that your food would run out before you had money to buy more?: never true In the past 12 mos, the food you bought just didn't last and you didn't have money to buy more?: never true Smoking Status: Never smoker Do you use any of these nicotine containing products: None Second hand tobacco smoke exposure: No How often do you have a drink containing alcohol: never AUDIT-C Alcohol total score: 0 Non-prescribed substance use: denies use How often does anyone, including family, friends and others, physically hurt you: never How often does anyone, including family, friends and others, insult or talk down to you: never How often does anyone, including family, friends and others, threaten you with harm: never How often does anyone, including family, friends and others, scream or curse at you: never Exam Narrative: Exam Narrative: Vivian is in exam chair arching back with her eyes rolling back. Generally shaking mildly. Not responding though within about a minute, relaxes. Is now breathing easily. Moving all extremities normally. Transferred to a bed and to a more appropriate room Given 2 mg of lorazepam. Alerts fairly quickly for exam. Heart in regular rate and rhythm. Cranial nerves 2-12 are intact. Pupils equal and 3-4 mm and briskly reactive. No indication of trauma in her mouth. Head atraumatic. Conversing easily as per usual. Area in question with some scabs at the left lower scalp in the hair. No drainage at this time. Very trace erythema surrounding the scabs. There is nearly 2 cm lymph node over and posterior to the left mid-upper sternocleidomastoid musculature. No inflammatory changes. Mildly tender to palpation. Const: Vital Signs, click to edit/add: Vital Signs - 24 hr 10/09/24 21:35 10/09/24 21:54 Temperature 97.9 F Pulse Rate [Pulse Oximeter] 72 78 Respiratory Rate 18 20 Blood Pressure [Ri t Upper Arm] 107/71 103/61 Pulse Oximetry 97 99 Oxygen Delivery Me thod Room Air Documenting provider has reviewed patient's vital signs: yes Course Vital Signs Vital signs: Initial Vital Signs Temperature 97.9 F 10/09/24 21:35 Temperature Source Temporal Artery Scan 10/09/24 21:35 Pulse Rate 72 10/09/24 21:35 Pulse Rhythm Regular 10/09/24 21:35 Pulse Strength 3+ Normal 10/09/24 21:35 Respiratory Rate 18 10/09/24 21:35 Blood Pressure 107/71 10/09/24 21:35 Blood Pressure Mean 83 10/09/24 21:35 Blood Pressure Position Sitting 10/09/24 21:35 Pulse Oximetry 97 10/09/24 21:35 Oxygen Delivery Method Room Air 10/09/24 21:35 Vital Signs Temperature 97.9 F 10/09/24 21:35 Pulse Rate 72 10/09/24 21:35 Respiratory Rate 18 10/09/24 21:35 Blood Pressure 107/71 10/09/24 21:35 Pulse Oximetry 97 10/09/24 21:35 Oxygen Delivery Method Room Air 10/09/24 21:35 Temperature 97.9 F 10/09/24 21:35 Pulse Rate 78 10/09/24 21:54 Respiratory Rate 20 10/09/24 21:54 Blood Pressure 103/61 10/09/24 21:54 Pulse Oximetry 100 10/09/24 22:30 Oxygen Delivery Method Room Air 10/09/24 21:35 Medications Administered Medications: Discontinued Medications Generic Name Dose Route Start Last Admin Trade Name Freq PRN Reason Stop Dose Admin Lidocaine 1 patch 10/09/24 22:39 10/09/24 22:43 Lidocaine 5% Patch TRANSDERMA 06/13/25 22:40 1 patch ONCE ONE Administration Protocol Lorazepam 2 mg 10/09/24 21:48 10/09/24 21:55 Lorazepam 0.5 Mg Tablet PO 10/09/24 21:49 2 mg ONCE ONE Administration Medical Decision Making MDM Narrative Medical decision making narrative: Considering this lymph node is lying over the musculature can imagine that this is contributing to significant discomfort periodically. Step devora notes that may have been strained a little bit recently or may have been sleeping on it. I do not think further intervention needs to occur with this seizure beyond treatment noted here already. Would check however a zonisonide level for follow-up in outpatient Neuro Clinic. I would make note of quick recovery and not appearing to be postictal Did place a lidocaine patch over this lymph node. No further events over brief period of monitoring in the emergency department. See patient discharge plan for further discussion You have normal labs here recently. We added a zonisamide level. This is a send out. Results should be back in a few days. Further guidance then from your Neurology Clinic/neurologist. Though could go through primary care for this result and further recommendations. Follow-up otherwise with your EEG as planned. Continue with your antibiotics. If this lidocaine patch seems helpful can purchase more [id number]. I do think this is likely a reactive lymph node. Very important not to scratch the sores on your head. Can also take up to 600 mg of ibuprofen per dose for pain. Medical Records Medical records reviewed: Yes I reviewed the patient's medical records Lab Data Labs: Lab Results 10/09/24 Range/Units 22:30 Zonisamide 28 (10-40) ug/mL Discharge Plan Discharge Clinical Impression: Swelling of lymph node, Folliculitis, Breakthrough seizure Patient Disposition: Home w/ Parent or Adult Condition: Stable Additional Instructions: You have normal labs here recently. We added a zonisamide level. This is a send out. Results should be back in a few days. Further guidance then from your Neurology Clinic/neurologist. Though could go through primary care for this result and further recommendations. Follow-up otherwise with your EEG as planned. Continue with your antibiotics. If this lidocaine patch seems helpful can purchase more [id number]. I do think this is likely a reactive lymph node. Very important not to scratch the sores on your head. Can also take up to 600 mg of ibuprofen per dose for pain. Prescriptions: No Action cephalexin 500 mg capsule 500 mg PO TID 10 Days Qty: 30 0RF zonisamide 100 mg capsule 400 mg PO DAILY Rx Instructions: 4 capsules at bedtime, per pt father. paroxetine HCl 12.5 mg tablet extended release 24 hr 12.5 mg PO DAILY Follow Up/Referrals: Provider,Not a Local [Primary Care Provider, Family Practice] Stand Alone Forms: [employer] Info Instructions
[2024-10-09 21:54] VITALS: BP 103/61; PULSE 78; RESP 20; O2SAT 99
[2024-10-09] MEDS: LORazepam 0.5 MG TABLET 2 MG PO (21:55)
[2024-10-09 22:30] VITALS: O2SAT 100
[2024-10-09] MEDS: LIDOCAINE 5% PATCH 1 PATCH TRANSDERMA (22:43)
[2024-10-11 21:11] LABS: Zonisamide Quantitative 28 ug/mL (10-40)
== END 2024-10-09 22:48 | disposition home or self-care (01) ==
PROVIDERS: Emergency Provider Family Medicine
DX: R59.0 Localized enlarged lymph nodes (principal); L73.9 Follicular disorder, unspecified; G40.909 Epilepsy, unspecified, not intractable, without status epilepticus
CPT/HCPCS: 36415; 80203; 94761; 99283; 99284; A9270

== ENCOUNTER 2024-11-05 14:21 | Outpatient (CLI) | payer OTHER, MEDICAID, SELFPAY | END 2024-11-05 14:22 | disposition home or self-care (01) | PROVIDERS: Visit Provider Family Medicine | DX: R45.851 Suicidal ideations (principal) | CPT/HCPCS: A0425; A0427 ==

== ENCOUNTER 2024-11-05 17:58 | Emergency (ER) | payer OTHER, MEDICAID, SELFPAY ==
--- OUTSIDE RECORDS SUMMARY | 2024-09-22 11:20 | XMS_ITS | Encounter Summary ---
Author Organization [facility] Address [address] [place] [address] Care Team Providers Care Jewelry Appraiser Name Role Phone Maryam Barker M.D. Primary Care Provider Reason for Visit * Reason Comments Medication Review Patient would like t o renew her antiseizure medication and add Paroxetine CR per psychiatrist. Encounter Details Date Type Department Care Team (Late st Contact Info) Description 09/22/2024 11:20 AM CDT Telemedicine Department of Family Medicine, [facility], in [place], [place] [address] [place] [phone] Simran Solis M.D. [address], [place] [phone] Depressive Disorder (Primary Dx); Anxiety; Suicide Ideation Social History Tobacco Use Types Packs/Day Years Used Date Smoking Tobacco: Never Smokeless Tobacco: Never Tobacco Cessation:Counseling Given: Not Answered Alcohol Use Standard Drinks/Week Comments Never 0 (1 standard drink = 0.6 oz pur e alcohol) [facility] Utilities Answer Date Recorded In the past 12 months has e electric, gas, oil, or water company threatened to shut off services in your home? No 08/17/2024 Hunger Vital Sign Answer Date Recorded [...] Recor ded PHQ-9 Total Score (max 27) 12 09/22 Housing Stability Answer Date Recorded What is your living situation today? I have a [facility] place to live 08/17/2024 Comments No Sex and Gender Information Value Date Recorded Sex Assigned at Female 07/22/2023 4:04 PM CDT Legal Sex Female 10:39 AM CDT Gender Identity Female 07/22/2023 4:04 PM CDT Sexual Orientation Straight 07/22/2023 4: 04 PM CDT documented as of this encounter Progress Notes * Simran Solis M.D. - 09/22/2024 11:20 AM CDT DATE OF VISIT: 09/22/2024 SUBJECTIVE CHIEF COMPLAINT / REASON FOR VISIT Vivian Holloway is a 18 y.o. female who presents for evaluation of Medication Review (Patient would like to renew her antiseizure medication and add Paroxetine CR per psychiatrist. ). The patient verbally consented to an audio recording of their visit to assist with the completion of documentation. History of Present Illness Vivian Holloway is a 18 year old female with anxiety and self-harm who presents via video chat with her father, Pedro Luis, and father's significant other Jackie. Patient was not present for most of the visit as she was upset from the GABINO-7 questions. Patient had recent emergency department visits for suicidal ideation and self- injurious behavior. She has had two recent emergency department visits due to episodes of suicidal ideation and self-harm. The first incident occurred while moving her brother, where she ran in front of cars and expressed suicidal thoughts after an argument with her mother. Emergency services were called, and she was taken to the hospital. The second incident involved superficially scratching her arm with a piece of glass, which she later laughed about, saying 'I did something stupid.' This behavior led to another emergency department visit, where she was evaluated but not admitted to the behavioral health unit. She stayed overnight in the ER. She has been living with her father and his fianc??e for the past two months. She has a history of cognitive challenges, functioning at an sskab-vnje-xvq level despite being almost [age]. Her social history includes previous attendance at a special needs vocational school, where she was involvedin unhealthy relationships and suicide pacts with peers. She is currently homeschooled and her family is working on enrolling her in college classes and finding suitable employment. She has no access to social media, which is a known trigger for her anxiety. She has a history of being easily influenced by peers, particularly in romantic contexts, which has exacerbated her mentalhealth issues. Her family is actively involved in her care, ensuring she takes her medication and attends therapy sessions. OBJECTIVE VITAL SIGNS Unable to perform due to video visit Physical Exam Unable to perform due to video visit ASSESSMENT/ PLAN Depressive Disorder Patient exhibits depression and anxiety, exacerbated by social triggers. Difficulty understanding anxiety and poor social boundaries noted. Goal to improve mood, reduce anxiety and improve thoughts of SI. - Start paroxetine 12.5 mg daily - Begin DBT therapy starting on the third of the next month. - Schedule follow-up with primary care physician in one month to assess medication effectiveness and adjust dose if necessary. Sooner to the clinic or emergency department if new or worsening symptoms Orders: PARoxetine (PaxiL CR) 12.5 mg 24 hr tablet; Take 1 tablet (12.5 mg total) by mouth daily. Anxiety See above Orders: PARoxetine (PaxiL CR) 12.5 mg 24 hr tablet; Take 1 tablet (12.5 mg total) by mouth daily. Suicide Ideation Patient exhibits suicidal ideation and self-harm behavior, with low risk of actual suicide but serious behaviors requiring intervention. Cognitive development leander to an hmnyy-qduj-qvu per father which complicates understanding of consequences. Psychiatrist recommended outpatient care and home supervision. - Ensure constant supervision at home with either parent present. - Contact emergency services if she verbalizes suicidal intent or engages in self-harm. - Start paroxetine 12.5 mg daily, monitor for increased suicidal thoughts. - Follow up with primary care provider in one-month, sooner to the clinic or emergency department if new or worsening symptoms Simran Solis M.D. documented in this encounter Plan of Treatment Upcoming Encounters Date Type Department Care Team (Late st Contact Info) Description 11/17/2024 11:00 AM CDT Comprehensive Visit Department of Neurology in [place], [place] [address] [place] [address] Alberto Holcomb M.D. [address] [place] [phone] 11/23/2024 3:30 PM CDT Appointment Department of Radiology, [facility], in [place], [place] [address] [place] [address] Tommy Reis M.D. [address] [place] [phone] documented as of this encounter Visit Diagnoses Diagnosis Depressive Disorder- Primary Anxiety Suicide Ideation documented in this encounter Additional Health Concerns Assessment Noted Time PHQ-9 Depression Total Score: 12 025 11:19 AM CDT documented as of this encounter Care Teams Jewelry Appraiser Relationship Specialty Start Date End Date Maryam Barker M.D. [address] [phone] PCP - General Family Medicine 01/29/23 documented as of this encounter
--- OUTSIDE RECORDS SUMMARY | 2024-10-26 09:17 | XMS_ITS | Encounter Summary ---
Author Organization [facility] Address [address] [place] [address] Care Team Providers Care Slip Caster Name Role Phone Maryam Barker M.D. 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 [address] [place] [address] Phone: tel: fax: Health System Referral ID Status Reason Start Date Expiration Date Visits Re quested Visits Authorized [id number] Closed 08/14/2024 11/14/2025 1 1 Encounter Details Date Type Department Care Team (Latest Contact Info) Description 10/26/2024 9:17 AM CDT - 10/26/2024 11:59 PM CDT Hospital Encounter Department of Neurology in [place], [place] [address] [place] [address] Jie Mcintyre M.D. 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 I have a [facility] place to live 08/17/2024 Comments No Sex [...] mouth 2 (two) times a day. 12/08/2021 PARoxetine (PaxiL CR) 12.5 mg 24 hr tabletIndications :Depressive Disorder,Anxiety Take 1 tablet (12.5 mg total) by mouth daily. 90 tablet 3 09/22/2024 09/22/2025 zonisamide (Zonegran) 100 mg capsule 4 take 400 mg (4 capsules) at night 360 capsule 2 06/09/2024 documented as of this encounter Progress Notes * Elodia Barroso CCLS - 10/26/2024 9:30 AM CDT Child Life Ambulatory Note Presenting Problem: Vivian Holloway is a 18 y.o. female seen today. Area Patient Seen In: Outpatient Specialty Clinic (EEG). 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 Pt stayed calm and cooperative throughout. [...] CDT Comprehensive Visit Department of Neurology in [place], [place] [address] [place] [address] Alberto Holcomb M.D. [address] [place] [phone] 11/23/2024 3:30 PM CDT Appointment Department of Radiology, [facility], in [place], [place] [address] [place] [address] Tommy Reis M.D. [address] [place] [phone] documented as of this encounter Procedures Procedure [...] generalized discharges. The EKG channel was unremarkable. Jie Mcintyre M.D. 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 [address] [place] [phone] PCP - General Family Medicine 01/29/23 documented as of this encounter
--- OUTSIDE RECORDS SUMMARY | 2024-10-29 15:30 | XMS_ITS | Encounter Summary ---
Author Organization [facility] Address [address] [place] [address] Care Team Providers Care Ammonium Nitrate Neutralizer Name Role Phone Maryam Barker M.D. Primary Care Provider Reason for Visit * Outpatient (Routine) - Closed Specialty Diagnoses / Procedures Referred By John duarte Referred To Contact Child and Adolescent Neurology Jie Mcintyer M.D. [address] [place] [phone] Phone: tel: fax: [facility] Referral ID Status Reason Start Date Expiration Date Visits Re quested Visits Authorized [id number] Closed 08/04/2024 02/03/2026 1 1 Encounter Details Date Type Department Care Team (Late st Contact Info) Description 10/29/2024 3:30 PM CDT Telemedicine Department of Neurology in [place], [place] [address] [place] [phone] Jie Mcintyre M.D. [address] [place] [phone] Seizure Absence (HCC) (Primary Dx); Development Delay Intellectual Social History Tobacco Use Types Packs/Day Years Used Date Smoking Tobacco: Never Smokeless Tobacco: Never Alcohol Use Standard Drinks/Week Comments Never 0 (1 standard drink = 0.6 oz pur e alcohol) [facility] Utilities Answer Date Recorded In [...] your living situation today? I have a [facility] place to live 08/17/2024 Comments No Sex and Gender Information Value Date Recorded Sex Assigned at Female 07/22/2023 4:04 PM CDT Legal Sex Female 10:39 AM CDT Gender Identity Female 07/22/2023 4:04 PM CDT Sexual Orientation Straight 07/22/2023 4: 04 PM CDT documented as of this encounter Progress Notes * Jie Mcintyre M.D. - 10/29/2024 3:30 PM CDT SUBJECTIVE HISTORY OF PRESENT ILLNESS Vivian Holloway is a 18 y.o. right-handed female who presents for follow up visit for epilepsy. Consult conducted via real-time audio/video technology by Jie Mcintyre M.D. in [facility] to the patient in Patient's Home. Vivian was not there as she was in psychotherapy. Vivian currently lives with her father, both parent are legal guardians. I discussed interim changeswith mother only. Unfortunately they did not schedule follow up appointments nor contact us with ongoing seizure activity. Vivian had a recent admission for mood, suicidal ideations and aggressive behavior. She had a roughfew months. Looking back, there was not any change in mood or behavior after starting the medications over a year ago. Seizure activity is still daily. Despite that they became less than before, they are still daily and at times up to 3-4 per hour, all short as before. The major change in her epilepsy is that she hada first time generalized tonic clonic seizure. This occurred in the ER when she was there for a skin lesion. This event prompted them to return to follow up. Reviewing past medications again: Ethosuximide - partially effective, started early and then continued after below did not show any effect. VPA - 750 mg BID - did not have any good result, stopped age 13-14 when LTG - rash, immediately stopped, full body rash. ZNS - start 08/2023, no great effect as above. Zonisamide, tolerated well. No drowsiness until antidepressants were added, recently she has been more sleepy. Recalling from prior notes, the history was challenging without records and at times difficulty recalling all details. 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 Details of semiology as per prior notes, classic description except that she would have falls at times, but only with a staring spell. She had been on multiple medications, ethosuximide, VPA I now found was 750 mg BID in 2019. Apparently even with higher doses she would have daily spells. She had stopped medications for a year at last visit. I had started her on zonisamide. No clear history of myoclonic or generalized tonic/clonic seizures until this first seizure. In addition she had developmental regression early on. 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 About 1/3rd have epilepsy. Other neurodevelopmental and psychiatric disorders are more common, including mood disorders, and aggressive behaviors that were reported with her admission. The prior records were not available at last appointment, reviewed today that prior overnight EEGs by report were without seizures from them at the time, records were not available at the time, reviewed now 2016 study overnight with abnormal generalized discharges as reported, but no seizure activity. Another 2013 prolonged EEG was not overnight, same results. MRI here on 07/24/2023 (FIRST time): IMPRESSION: 1. Mildly small hippocampi without overt signal abnormality or architectural distortion. 2. No malformation of cortical development. Last visit she did have a seizure where she had fallen, did not sound like any suspicion for e.g. drop seizures, she had already felt lightheaded, had a seizure and fell. Vivian is in high school with extension and life skills classes for a 3 year program. Recalling, there had been a strong history of epilepsy. She recently has been living more with her father. No other changes in medical or social history. ASSESSMENT / PLAN Given the reported drug resistance and her age, I had already referred her to adult neurology for subspecialty consultation. Appointments were not made, but fortunately she is scheduled later this October. Her EEG from 10/26/2024 (repeat) showed a mild degree of diffuse nonspecific slowing of the background and frequent to abundant activation of generalized spike and polyspike and wave discharges lasting 1-2.5 seconds without apparent clinical correlate, which would be consistent with a generalized epilepsy. Unfortunately, Vivian continues to have very frequent seizures despite having been started on Zonisamide and she has not followed up despite recommendations. Fortunately she has continued medications throughout, but absence of good control will require further sub-specialty care. Considering the recent suicidal ideations, lamotrigine as a consideration is challenged by the documented full body rash. Rufinamide or other next line therapies are considered, but given that she has an appointment with Dr. Holcomb in epilepsy subspecialty clinic, at this point I will try one increase in zonisamide to 500 mg QHS, and will request his expertise for the next best steps in management. Should she have increase in mood symptoms or worse sleepiness, they will cut back to 400 mg QHS Labs will be obtained next week as ordered, done in afternoon, locally. Orders Placed This Encounter Procedures Zonisamide Level CBC with Differential, Blood Comprehensive Metabolic Panel PATIENT EDUCATION Ready to learn, no apparent learning barriers were identified; learning preferences include listening. Explained diagnosis and treatment plan; patient expressed understanding of the content. documented in this encounter Plan of Treatment Upcoming Encounters Date Type Department Care Team (Late st Contact Info) Description 11/17/2024 11:00 AM CDT Comprehensive Visit Department of Neurology in [place], [place] [address] [place] [address] Alberto Holcomb M.D. [address] [place] [address] 11/23/2024 3:30 PM CDT Appointment Department of Radiology, [facility], in [place], [place] [address] [place] [address] Tommy Reis M.D. [address] [place] [address] Scheduled Orders Name Type Priority Associated Diagnoses Orde r Schedule Zonisamide Level Lab Routine Seizure Absence (HCC) Development Delay Intellectual Expected: 10/29/2024 (Approximate), Expires: 01/29/2026 CBC with Differential, Blood Lab Routine Seizure Absence (HCC) Development Delay Intellectual Expected: 10/29/2024 (Approximate), Expires: 01/29/2026 Comprehensive Metabolic Panel Lab Routine Seizure Absence (HCC) Development Delay Intellectual Expected: 10/29/2024 (Approximate), Expires: 10/29/2025 documented as of this encounter Visit Diagnoses Diagnosis Seizure Absence (HCC)- Primary Development Delay Intellectual documented in this encounter Additional Health Concerns Assessment Noted Time PHQ-9 Depression Total Score: 12 025 11:19 AM CDT documented as of this encounter Care Teams Ammonium Nitrate Neutralizer Relationship Specialty Start Date End Date Maryam Barker M.D. [address] [place] [phone] PCP - General Family Medicine 01/29/23 documented as of this encounter
--- OUTSIDE RECORDS SUMMARY | 2024-11-05 18:00 | XMS_ITS | Encounter Summary ---
Author Organization [facility] Address [address] [place] [address] Care Team Providers Care Meat Curer Name Role Phone Maryam Barker M.D. Primary Care Provider Encounter Details Date Type Department Care Team (Late st Contact Info) Description 10/29/2024 Clinical Communication Department of Family Medicine, [facility], in [place], [place] [address] [phone] Maryam Barker M.D. [address] [phone] Social History Tobacco Use Types Packs/Day Years Used Date Smoking Tobacco: Never Smokeless Tobacco: Never Alcohol Use Standard Drinks/Week Comments Never 0 (1 standard drink = 0.6 oz pur e alcohol) [facility] Utilities Answer Date Recorded In the past 12 months has [employer], gas, oil, or water company threatened [...] your living situation today? I have a [facility] place to live 08/17/2024 Comments No [...] CDT Comprehensive Visit Department of Neurology in [place], [place] [address] [place] [address] Alberto Holcomb M.D. [address] [place] [phone] 11/23/2024 3:30 PM CDT Appointment Department of Radiology, [facility], in [place], [place] [address] [place] [address] Tommy Reis M.D. [address] [place] [phone] documented as of this encounter Visit Diagnoses Not on filedocumented in this encounter Additional Health Concerns Assessment Noted Time PHQ-9 Depression Total Score: 12 025 11:19 AM CDT documented as of this encounter Care Teams Meat Curer Relationship Specialty Start Date End Date Maryam Barker M.D. [address] [facility] [place] [phone] PCP - General Family Medicine 01/29/23 documented as of this encounter
--- OUTSIDE RECORDS SUMMARY | 2024-11-05 18:00 | XMS_ITS | Clinical Summary ---
Author Organization [facility] Address [address] [place] [address] Care Team Providers Care Applications Development Analyst Name Role Phone Maryam Barker M.D. Primary Care Provider Source Comments Patient records contain information from all sites at [facility]. For routine questions regarding patient records, call [phone] during business hours, M-F 8:00 AM - 5:00 PM Central Time. Record requests for emergency care only can be directed to [phone] at any time.[facility] Allergies Active Allergy Reactions Criticality Noted [...] organization. Date Type Department Care Team Description 10/29/2024 3:30 PM CDT Telemedicine Department of Neurology in [place], [place] [address] [place] [address] Jie Mcintyre M.D. Seizure Absence (HCC) (Primary Dx); Development Delay Intellectual 10/29/2024 Clinical Communication Department of [facility], [facility], [place], [place] [address] [place] [phone] Maryam Barker M.D. 10/26/2024 9:17 AM CDT - 10/26/2024 11:59 PM CDT Hospital Encounter Department of Neurology in [place], [place] 200 [place] [address] Jie Mcintyre M.D. 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 Med Refill 09/22/2024 11:20 AM CDT Telemedicine Department of Family Medicine, [facility], in [place], [place] [address] [place] [address] [place] [phone] Simran Solis M.D. Depressive Disorder (Primary Dx); Anxiety; Suicide Ideation 09/13/2024 4:25 PM CDT - 09/13/2024 11:59 PM CDT Emergency [facility] [address] [place] [address] Discharge Disposition: Home or Self Care 08/21/2024 10:20 AM CDT Office Visit Department of Family Medicine, [facility], in [place], [place] [address] [place] [phone] Terrance Bass M.D. Mood Disorder (Primary Dx); Seizure Absence (HCC) from Last 3 Months Immunizations Immunization Administration [...] Seizures Brother 3 kirus ADD Brother 4 cheondoism Asthma Brother 4 cheondoism Bipolar disorder Father 1 Foreign Suicide Attempts [...] Alive Brother 3 kirus Alive Brother 4 cheondoism Alive Father 1 Foreign Father 2 elijah [...] drink = 0.6 oz pur e alcohol) [facility] Utilities Answer Date Recorded In the past 12 months has e [employer], gas, oil, or water [employer] threatened to shut off services in your [...] your living situation today? I have a [facility] place to live 08/17/2024 Comments No [...] CDT Respiratory Rate 15 04/10/2023 1:26 PM GROUP TEACHER Oxygen Saturation - - Inhaled Oxygen Concentration - - Weight 61.9 kg (136 lb 7.4 oz) 09/04/2024 2:10 P M CDT Height 163 cm (5' 4.17) 09/04/2024 2:10 PM CDT Body Mass Index 23.3 09/04/2024 2:10 PM CDT Plan of Treatment Upcoming Encounters Date Type Department Care Team (Late st Contact Info) Description 11/17/2024 11:00 AM CDT Comprehensive Visit Department of Neurology in [place], [place] 200 [place] [address] Alberto Holcomb M.D. 200 [place] [address] 11/23/2024 3:30 PM CDT Appointment Department of Radiology, [facility], in [place], [place] [address] [place] [address] Tommy Reis M.D. 200 [place] [phone] Health Maintenance Due Date Last Done Comments [...] 10/13/2021 18 year Well Child Check-Up 10/14/2023 COVID-19 Vaccine ( season) 2023 19 year Well Child Check-Up 10/13/2024 Well Child Check-Up ([facility]) 10/13/2024 Influenza Vaccine (#1) 2025 6, 03/12/2012, 04/07/2010, Additional history exists Vision [...] Generalized Epilepsy Intractable Without Status Epilepticus (HCC) CBC WITH DIFFERENTIAL, B Routine 07/23/2023 11:30 AM CDT Seizure Absence (HCC) Seizure (HCC) from Last 3 Months or Most Recently Relevant to Health Maintenance Results * EEG (10/26/2024 10:35 AM CDT) [...] NEUROLOGY ORDERABLES Fi nal Result MMODAL NA * (ABNORMAL) CBC with Differential, Blood (07/23/2023 [...] Mcintyre M.D. LAB BLOOD ADD-ON Final Result [facility] [address] [place] [address], [place] DTL [facility] [address] [place] [address] DHPM [facility] [address] [place] [address] from Last 3 Months or Most Recently Relevant to Health Maintenance Insurance [facility] Member Subscriber Plan / Payer (Ef fective 2022-Present) Name:VIVIAN HOLLOWAY J Member ID:[id number] Relation to Subscriber:Child Name:SABINE HOLLOWAY Subscriber ID:[id number] Date of :2004 (Home) Address: [address] [place] [address] Payer ID:Not on file Type:PPO Address: [address] [address] [place] [address] [place] [employer] Care Teams Applications Development Analyst Relationship Specialty Start Date End Date Maryam Barker M.D. [address] [place] [phone] PCP - General Family Medicine 01/29/23
--- OUTSIDE RECORDS SUMMARY | 2024-11-05 18:00 | XMS_ITS | Clinical Summary ---
Author Organization [facility] Address [address] [place] [address] Care Team Providers Care Banding Machine Operator Name Role Phone Maryam Barker MD Primary Care Provi sary Allergies No known active allergies Medications No known medications Active Problems Problem Noted Date Diagnosed Date Intellectual delay 09/13/2024 Encounters Date Type Department Care Team Description 09/13/2024 4:25 PM CDT - 09/13/2024 6:45 PM CDT Emergency [facility] [address] [place] [address] Chris Urias MD Suicidal behavior without attempted [...] Plan of Treatment Not on file Insurance [facility] Care Teams Banding Machine Operator Relationship Specialty Start Date End Date Maryam Barker MD [address] [place] [phone] PCP - General Family Practice 09/13/24
--- OUTSIDE RECORDS SUMMARY | 2024-11-05 18:00 | XMS_ITS | Encounter Summary ---
Author Organization [facility] Address [address] [place] [address] Care Team Providers Care Supervisor [employer] Name Role Phone Maryam Barker M.D. Primary Care Provider Reason for Visit * Reason Onset Date Comments Med Refill 10/18/2024 Encounter Details Date Type Department Care Team (Late st Contact Info) Description 10/18/2024 Refill Department of Family Medicine, [facility], in [place], [place] [address] [phone] Maryam Barker M.D. [address] [place] [phone] Med Refill Social History Tobacco Use Types Packs/Day Years Used Date Smoking Tobacco: Never Smokeless Tobacco: Never Alcohol Use Standard Drinks/Week Comments Never 0 (1 standard drink = 0.6 oz pur e alcohol) [facility] Utilities Answer Date Recorded In [...] your living situation today? I have a [facility] place to live 08/17/2024 Comments [...] CDT Comprehensive Visit Department of Neurology in [place], [place] [address] [place] [address] Alberto Holcomb M.D. [address] [place] [phone] 11/23/2024 3:30 PM CDT Appointment Department of Radiology, [facility], in [place], [place] [address] [place] [address] Tommy Reis M.D. [address] [place] [phone] documented as of this encounter Visit Diagnoses Diagnosis Depressive Disorder Anxiety documented in this encounter Additional Health Concerns Assessment Noted Time PHQ-9 Depression Total Score: 12 025 11:19 AM CDT documented as of this encounter Care Teams Supervisor [employer] Relationship Specialty Start Date End Date Maryam Barker M.D. [address] [place] [phone] PCP - General Family Medicine 01/29/23 documented as of this encounter
--- OUTSIDE RECORDS SUMMARY | 2024-11-05 18:00 | XMS_ITS | Encounter Summary ---
Author Organization [facility] Address [address] [place] [address] Care Team Providers Care Finish Off Operator Name Role Phone Maryam Barker M.D. 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 [address] [place] [address] Phone: tel: fax: [facility] Referral ID Status Reason Start Date Expiration Date V isits Requested Visits Authorized [id number] Authorized 10/21/2024 01/21/2026 1 1 Encounter Details Date Type Department Care Team (Late st Contact Info) Description 10/21/2024 Orders Only Department of Medical Genetics in [place], [place] [address] [place] [phone] Sherri Gudino M.S., 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 I have a [facility] place to live 08/17/2024 Comments No [...] CDT Comprehensive Visit Department of Neurology in [place], [place] [address] [place] [address] Alberto Holcomb M.D. [address] [place] [address] 11/23/2024 3:30 PM CDT Appointment Department of Radiology, [facility], in [place], [place] [address] [place] [address] Tommy Reis M.D. 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 [address] [place] [phone] PCP - General Family Medicine 01/29/23 documented as of this encounter
[2024-11-05 18:08] VITALS: BP 93/58; PULSE 96; RESP 18; TEMP 36.7; O2SAT 98; BMI 18.0
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
== END 2024-11-05 21:25 | disposition home or self-care (01) ==
PROVIDERS: Emergency Provider Family Medicine
DX: R45.1 Restlessness and agitation (principal)
CPT/HCPCS: 99283; 99284; Q3014

== ENCOUNTER 2024-11-20 15:16 | Outpatient (CLI) | payer OTHER, MEDICAID, SELFPAY | END 2024-11-20 15:17 | disposition home or self-care (01) | PROVIDERS: Visit Provider Internal Medicine | DX: F29 Unspecified psychosis not due to a substance or known physiological condition (principal) | CPT/HCPCS: A0425; A0427 ==

== ENCOUNTER 2024-11-20 15:34 | Emergency (ER) | payer OTHER, MEDICAID, SELFPAY ==
--- OUTSIDE RECORDS SUMMARY | 2024-10-26 09:17 | XMS_ITS | Encounter Summary ---
Author Organization [facility] Address [address] [place] [address] Care Team Providers Care Flue Dust Laborer Name Role Phone Maryam Barker M.D. 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 [address] [place] [address] Phone: tel: fax: [facility] Referral ID Status Reason Start Date Expiration Date Visits Re quested Visits Authorized [id number] Closed 08/14/2024 11/14/2025 1 1 Encounter Details Date Type Department Care Team (Latest Contact Info) Description 10/26/2024 9:17 AM CDT - 10/26/2024 11:59 PM CDT Hospital Encounter Department of Neurology in [place], [place] [address] [place] [address] Jie Mcintyre M.D. 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 I have a [facility] place to live 08/17/2024 Comments No Sex [...] Specialty Clinic (EEG). 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 Pt stayed calm and cooperative throughout. [...] Care Team (Late st Contact Info) Description 11/23/2024 3:30 PM CDT Appointment Department of Radiology, [facility], in [place], [place] [address] [place] [address] Tommy Reis M.D. [address] [place] [address] 11/30/2024 7:30 AM CDT Appointment Department of Neurology in [place], [place] [address] [place] [phone] Alberto Holcomb M.D. [address] [place] [address] Discharge Disposition: Home or Self Care documented as of this encounter Procedures Procedure [...] documented as of this encounter Care Teams Flue Dust Laborer Relationship Specialty Start Date End Date Maryam Barker M.D. [address], [place] [address] PCP - General Family Medicine 01/29/23 documented as of this encounter
--- OUTSIDE RECORDS SUMMARY | 2024-10-29 15:30 | XMS_ITS | Encounter Summary ---
Author Organization [facility] Address [address] [place] [address] Care Team Providers Care Patient Registration Clerk Name Role Phone Maryam Barker M.D. Primary Care Provider Reason for Visit * Outpatient (Routine) - Closed Specialty Diagnoses / Procedures Referred By John duarte Referred To Contact Child and Adolescent Neurology Jie Mcintyre M.D. [address] [place] [phone] Phone: tel: fax: [facility] Referral ID Status Reason Start Date Expiration Date Visits Re quested Visits Authorized [id number] Closed 08/04/2024 02/03/2026 1 1 Encounter Details Date Type Department Care Team (Late st Contact Info) Description 10/29/2024 3:30 PM CDT Telemedicine Department of Neurology in [place], [place] [address] [place] [phone] Jie Mcintyre M.D. [address] [place] [phone] Seizure Absence (HCC) (Primary Dx); Development Delay Intellectual Social History Tobacco Use Types Packs/Day Years Used Date Smoking Tobacco: Never Smokeless Tobacco: Never Alcohol Use Standard Drinks/Week Comments Never 0 (1 standard drink = 0.6 oz pur e alcohol) [facility] Utilities Answer Date Recorded In the [...] your living situation today? I have a [facility] place to live 08/17/2024 Comments No [...] audio/video technology by Jie Mcintyre M.D. in [facility] to the patient in Patient's Home. Vivian [...] 3:30 PM CDT Appointment Department of Radiology, [facility], in [place], [place] [address] [place] [address] Tommy Reis M.D. [address] [place] [address] 11/30/2024 7:30 AM CDT Appointment Department of Neurology in [place], [place] [address] [place] [phone] Alberto Holcomb M.D. [address] [place] [address] Discharge Disposition: Home or Self Care Scheduled Orders Name Type Priority Associated Diagnoses [...] documented as of this encounter Care Teams Patient Registration Clerk Relationship Specialty Start Date End Date Maryam Barker M.D. [address] [place] [phone] PCP - General Family Medicine 01/29/23 documented as of this encounter
--- OUTSIDE RECORDS SUMMARY | 2024-11-17 11:00 | XMS_ITS | Encounter Summary ---
Author Organization [facility] Address [address] [place] [address] Care Team Providers Care Activated Sludge Attendant Name Role Phone Maryam Barker M.D. 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 200 [place] [address] Phone: tel: fax: [facility] Referral ID Status Reason Start Date Expiration Date V isits Requested Visits Authorized [id number] Pending Review 11/30/2024 02/17/2026 1 1 Reason for Visit * Outpatient (Routine) - Closed Specialty Diagnoses / Procedures Referred By John duarte Referred To Contact Neurology Diagnoses Epilepsy Seizure Generalized Nonconvulsive (HCC) Jie Mcintyre M.D. [address] [place] [address] Phone: tel: fax: [facility] Referral ID Status Reason Start Date Expiration Date Visits Re quested Visits Authorized [id number] Closed 08/04/2024 02/03/2026 1 1 Encounter Details Date Type Department Care Team (Latest Contact Info) Description 11/17/2024 11:00 AM CDT Comprehensive Visit Department of Neurology in [place], [place] [address] [place] [address] Alberto Holcomb M.D. [address] [place] [address] 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 [...] Recorded In the past 12 months has [employer], gas, oil, or water [employer] threatened to shut off services in your [...] your living situation today? [facility] 08/17/2024 Comments No [...] occurred. The name of the center is [place] when first diagnosed. The patient describes her [...] She has the following epilepsy risk factors: family history of epilepsy and abnormal or development. [...] patient does not have an implanted medical oncologist that would affect evaluation. Is the patient [...] social history, surgical history, and problem list. 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 [address] [place] [place] [phone] 11/30/2024 7:30 AM CDT Appointment Department of Neurology in [place], [place] [address] [place] [address] Alberto Holcomb M.D. [address] [place] [place] [phone] Discharge Disposition: Home or Self Care Scheduled [...] documented as of this encounter Care Teams Activated Sludge Attendant Relationship Specialty Start Date End Date Maryam Barker M.D. [address] [place] [phone] PCP - General Family Medicine 01/29/23 documented as of this encounter
--- OUTSIDE RECORDS SUMMARY | 2024-11-20 15:36 | XMS_ITS | Encounter Summary ---
Author Organization [facility] Address [address] [place] [address] Care Team Providers Care Administrative And Program Specialist Name Role Phone Maryam Barker M.D. Primary Care Provider Encounter Details Date Type Department Care Team (Late st Contact Info) Description 10/29/2024 Clinical Communication Department of Family Medicine, [facility], in [place], [place] [address] [phone] Maryam Barker M.D. [address] [phone] Social History Tobacco Use Types Packs/Day Years Used Date Smoking Tobacco: Never Smokeless Tobacco: Never Alcohol Use Standard Drinks/Week Comments Never 0 (1 standard drink = 0.6 oz pur e alcohol) [facility] Utilities Answer Date Recorded In the past 12 months has [employer] electric, gas, oil, or water company threatened [...] your living situation today? I have a [facility] place to live 08/17/2024 Comments No [...] 3:30 PM CDT Appointment Department of Radiology, [facility], in [place], [place] [address] [place] [phone] Tommy Reis M.D. [address] [place] [phone] 11/30/2024 7:30 AM CDT Appointment Department of Neurology in [place], [place] [address] [place] [address] Alberto Holcomb M.D. [address] [place] [phone] Discharge Disposition: Home or Self Care documented as of this encounter Visit Diagnoses Not on filedocumented in this encounter Additional Health Concerns Assessment Noted Time PHQ-9 Depression Total Score: 12 025 11:19 AM CDT documented as of this encounter Care Teams Administrative And Program Specialist Relationship Specialty Start Date End Date Maryam Barker M.D. [address] [phone] PCP - General Family Medicine 01/29/23 documented as of this encounter
--- OUTSIDE RECORDS SUMMARY | 2024-11-20 15:36 | XMS_ITS | Clinical Summary ---
Author Organization [facility] Address [address] [place] [address] Care Team Providers Care Professional Driver Name Role Phone Maryam Barker M.D. Primary Care Provider Source Comments Patient records contain information from all sites at [facility]. For routine questions regarding patient records, call [phone] during business hours, M-F 8:00 AM - 5:00 PM Central Time. Record requests for emergency care only can be directed to [phone] at any time.[facility] Allergies Active Allergy Reactions Criticality Noted Date Comments Lamotrigine Rash Medium 11/23/2018 Medications * This document contains information received from the source organization and may not represent a complete record from that organization. PARoxetine (PaxiL CR) 12.5 mg 24 hr tabletIndicati ons:Depressive Disorder,Anxie ty Take 1 tablet (12.5 mg total) by mouth daily. 90 tablet 3 09/23/19 25 026 Active zonisamide (Zonegran) 100 mg capsuleIndicat ions:Seizure Absence (HCC) Take 5 capsules (500 mg total) by mouth daily. 11/18/19 25 Active zonisamide (Zonegran) 100 mg capsule 4 take 400 mg (4 capsules) at night 360 capsule 2 06/09/19 25 025 Discontinued divalproex (Depakote ER) 250 mg 24 hr tablet Take 3 tablets by mouth 2 (two) times a day. 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 Date Type Department Care Team Description 11/17/2024 11:00 AM CDT Comprehensive Visit Department of Neurology in [place], [place] [address] [place] [address] Alberto Holcomb M.D. 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 Seizure Absence (HCC) (Primary Dx); Development Delay Intellectual 10/29/2024 Clinical Communication Department of Family Medicine, [facility], in [place], [place] [address] [place] [address] Maryam Barker M.D. 10/26/2024 9:17 AM CDT - 10/26/2024 11:59 PM CDT Hospital Encounter Department of Neurology in [place], [place] [address] [place] [address] Jie Mcintyre M.D. 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 Med Refill 09/22/2024 11:20 AM CDT Telemedicine Department of [facility], [facility], in [place], [place] [address] [address] Simran Solis M.D. Depressive Disorder (Primary Dx); Anxiety; Suicide Ideation 09/13/2024 4:25 PM CDT - 09/13/2024 11:59 PM CDT Emergency [facility] [address] [place] [phone] Discharge Disposition: Home or Self Care 08/21/2024 10:20 AM CDT Office Visit Department of [facility], [facility], in [place], [place] [address] [address] Terrance Bass M.D. Mood Disorder (Primary Dx); [...] Seizures Brother 3 kirus ADD Brother 4 methodist Asthma Brother 4 methodist Bipolar disorder Father 1 Foreign Suicide Attempts [...] Alive Brother 3 kirus Alive Brother 4 methodist Alive Father 1 Foreign Father 2 elijah [...] drink = 0.6 oz pur e alcohol) [facility] Utilities Answer Date Recorded In the [...] your living situation today? I have a [facility] place to live 08/17/2024 Comments No [...] CDT Respiratory Rate 15 04/10/2023 1:26 PM MANAGER CUSTOMER SERVICE Oxygen Saturation - - Inhaled Oxygen Concentration - - Weight 61.3 kg (135 lb 2.3 oz) 11/17/2024 11:03 AM CDT Height 167 cm (5' 5.75) 11/17/2024 11:03 AM CDT Body Mass Index 21.98 11/17/2024 11:03 AM CDT Plan of Treatment Upcoming Encounters Date Type Department Care Team (Late st Contact Info) Description 11/23/2024 3:30 PM CDT Appointment Department of Radiology, [facility], in [place], [place] [address] [place] [address] Tommy Reis M.D. [address] [place] [address] 11/30/2024 7:30 AM CDT Appointment Department of Neurology in [place], [place] [address] [place] [address] Alberto Holcomb M.D. [address] [place] [address] Discharge Disposition: Home or Self Care Health Maintenance Due Date Last Done Comments [...] Child Check-Up Completed in Past Year 10/14/2007 4 year Well Child Check-Up 10/13/2009 5 [...] Well Child Check-Up 10/13/2024 Well Child Check-Up ([facility]) 10/13/2024 Influenza Vaccine (#1) 2025 6, 03/12/2012, 04/07/2010, Additional history exists Vision Screening during Well Child Visit 04/10/2027 04/10/2023 Hepatitis B Vaccines Completed 05/24/2005, 03/27/2005, 2004, Additional history exists Pneumococcal vaccine (0-49 years) Aged Out 03/02/2008, 05/24/2005, 03/27/2005, Additional history exists No longer eligible based on patient's age to complete this topic IPV Vaccines Completed 12/30/2008, 10/28, 05/24/2005, Additional history exists 17 year Well Child Check-Up Completed 04/10/2023 Hearing Screening during Well Child Visit Completed 04/10/2023 Anemia/Iron Deficiency Screening During Well Child Visit (if High Risk Menstruating Female) Completed 07/23/2023 Depression Screening (Annual PHQ-2) Completed 08/21/2024 Meningococcal Vaccine Aged Out No bonnie [...] Mcintyre M.D. LAB BLOOD ADD-ON Final Result [facility] [address] [place] [address], [place] DTL [facility] [address] [place] [address] DHPM [facility] [address] [place] [address] from Last 3 Months or Most Recently Relevant to Health Maintenance Insurance [employer] Member Subscriber Plan / Payer (Ef fective 2022-Present) Name:VIVIAN HOLLOWAY Member ID:[id number] Relation to Subscriber:Child Name:SABINE HOLLOWAY Subscriber ID:[id number] Date of :2005 (Home) Address: [address] [place] [address] Payer ID:Not on file Type:PPO Address: [address] [address] [place] [address] [place] [employer] Care Teams Professional Driver Relationship Specialty Start Date End Date Maryam Barker M.D. [address] [place] [phone] PCP - General Family Medicine 01/29/23
--- OUTSIDE RECORDS SUMMARY | 2024-11-20 15:36 | XMS_ITS | Clinical Summary ---
Author Organization [facility] Address [address] [place] [address] Care Team Providers Care Acid Extractor Name Role Phone Maryam Barker MD Primary Care Provi sary Allergies No known active allergies Medications No known medications Active Problems Problem Noted Date Diagnosed Date Intellectual delay 09/13/2024 Encounters Date Type Department Care Team Description 09/13/2024 4:25 PM CDT - 09/13/2024 6:45 PM CDT Emergency [facility] [address] [place] [phone] Chris Urias MD Suicidal behavior without attempted [...] Plan of Treatment Not on file Insurance [facility] Care Teams Acid Extractor Relationship Specialty Start Date End Date Maryam Barker MD [address] [place] [phone] PCP - General Family Practice 09/13/24
--- OUTSIDE RECORDS SUMMARY | 2024-11-20 15:36 | XMS_ITS | Encounter Summary ---
Author Organization [facility] Address [address] [place] [address] Care Team Providers Care Pie Bakery Laborer Name Role Phone Maryam Barker M.D. Primary Care Provider Reason for Visit * Reason Onset Date Comments Med Refill 10/18/2024 Encounter Details Date Type Department Care Team (Late st Contact Info) Description 10/18/2024 Refill Department of Family Medicine, [facility], in [place], [place] [address] [phone] Maryam Barker M.D. [address] [place] [phone] Med Refill Social History Tobacco Use Types Packs/Day Years Used Date Smoking Tobacco: Never Smokeless Tobacco: Never Alcohol Use Standard Drinks/Week Comments Never 0 (1 standard drink = 0.6 oz pur e alcohol) [facility] Utilities Answer Date Recorded In the [...] your living situation today? I have a [facility] place to live 08/17/2024 Comments [...] of Radiology, [facility], in [place], [place] [address] [place] [address] Tommy Reis M.D. [address] [place] [phone] 11/30/2024 7:30 AM CDT Appointment Department of Neurology in [place], [place] [address] [place] [address] Alberto Holcomb M.D. [address] [place] [phone] Discharge Disposition: Home or Self Care documented as of this encounter Visit Diagnoses Diagnosis Depressive Disorder Anxiety documented in this encounter Additional Health Concerns Assessment Noted Time PHQ-9 Depression Total Score: 12 025 11:19 AM CDT documented as of this encounter Care Teams Pie Bakery Laborer Relationship Specialty Start Date End Date Maryam Barker M.D. [address] [place] [phone] PCP - General Family Medicine 01/29/23 documented as of this encounter
--- OUTSIDE RECORDS SUMMARY | 2024-11-20 15:36 | XMS_ITS | Encounter Summary ---
Author Organization [facility] Address [address] [place] [address] Care Team Providers Care Ball Assembler Name Role Phone Maryam Barker M.D. 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 I have a [facility] place to live 08/17/2024 Comments No [...] 3:30 PM CDT Appointment Department of Radiology, [facility], in [place], [place] [address] [place] [address] Tommy Reis M.D. [address] [place] [address] 11/30/2024 7:30 AM CDT Appointment Department of Neurology in [place], [place] [address] [place] [address] Alberto Holcomb M.D. 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 [address], [place] [address] PCP - General Family Medicine 01/29/23 documented as of this encounter
[2024-11-20 15:41] VITALS: BP 107/65; PULSE 104; RESP 18; TEMP 36.6; O2SAT 98; BMI 17.8
--- NOTE | 2024-11-20 15:56 | ED.GENADULT ---
HPI - General Adult General Chief complaint: Psychiatric Problem/Disorder Stated complaint: Mental Health Time Seen by Provider: 11/20/24 15:42 History of Present Illness HPI narrative: Patient is a 19-year-old woman who lives with her family. She has a cognitive developmental delay. She also has a history of epilepsy. She is on stable medication. Patient was to go on a bike ride today and her father asked her to wear helmet. The patient lb be acceptable and began screaming and throwing dishes. As result EMS was called the patient peacefully came to the emergency. She states that she has not been using any drugs or alcohol. She states that she is not or injured in any way. She has tried choking herself in the past. Related Data Home Medications ?Medication ?Instructions ?Recorded ?Confirmed zonisamide 100 mg capsule 400 mg PO DAILY 09/20/24 10/09/24 paroxetine HCl 12.5 mg 12.5 mg PO DAILY 10/09/24 10/09/24 tablet,extended release 24 hr Allergies Allergy/AdvReac Type Severity Reaction Status Date / Time lamotrigine Allergy Mild Rash Verified 10/12/24 16:00 Review of Systems Status of ROS: Reports: 10 or more systems reviewed and unremarkable except as noted in History and below [facility] Medical History History of vitamin D deficiency ?Z86.39 - Personal history of other endocrine, nutritional and metabolic disease (ICD-10) Folliculitis of scalp (09/27/24) ?L02.821 - Furuncle of head [any part, except face] (ICD-10) Lump on neck (09/29/24) ?R22.1 - Localized swelling, mass and lump, neck (ICD-10) Epilepsy ?G40.909 - Epilepsy, unspecified, not intractable, without status epilepticus (ICD-10) Depression with anxiety ?F41.8 - Other specified anxiety disorders (ICD-10) Cognitive developmental delay ?F81.9 - Developmental disorder of scholastic skills, unspecified (ICD-10) 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 Paternal Grandfather Bipolar disorder Paternal Grandmother COPD (chronic obstructive pulmonary disease) Aunt Rheumatoid arthritis Borderline personality disorder Other Chromosomal disorder Social History Narrative: Single, no occupation, lives with father and father's fiancee Exercises daily by biking and skateboarding Never smoker No drug use No alcohol use What is your current living situation?: I presently have a place to live Problems where you live: no known problems In the past 12 months, utilities in danger of being shut off: no In past 12 months, lack of transportation kept you from medical appts, meetings, work, or getting things needed for daily living: no In the past 12 mos, have been you worried that your food would run out before you had money to buy more?: never true In the past 12 mos, the food you bought just didn't last and you didn't have money to buy more?: never true Smoking Status: Never smoker Do you use any of these nicotine containing products: None Second hand tobacco smoke exposure: No How often do you have a drink containing alcohol: never How often do you have six or more drinks on one occasion: Never AUDIT-C Alcohol total score: 0 Non-prescribed substance use: denies use How often does anyone, including family, friends and others, physically hurt you: never How often does anyone, including family, friends and others, insult or talk down to you: never How often does anyone, including family, friends and others, threaten you with harm: never How often does anyone, including family, friends and others, scream or curse at you: never service: No Exam Narrative: Exam Narrative: EXAM GENERAL: Patient appears comfortable and well. EYES: No scleral icterus. LYMPH: No supraclavicular or cervical lymphadenopathy. SKIN: Visible skin seen during exam normal or with benign process only. EXT: No dependent lower extremity pedal edema. HEART: Regular rate and rhythm with no murmurs, rubs, or gallops. LUNGS: Clear to auscultation bilaterally with no crackles or wheezes. ABD: Soft, non tender, non distended. PSYCH: Good eye contact, speech is not pressured. Const: Vital Signs, click to edit/add: Vital Signs - 24 hr 11/20/24 15:41 Temperature 97.8 F Pulse Rate [Pulse Oximeter] 104 H Respiratory Rate 18 Blood Pressure [Ri ght Upper Arm] 107/65 Pulse Oximetry 98 Oxygen Delivery Me thod Room Air Course Course ED Course: Center toxicology workup obtained. Mental health consult ordered. Vital Signs Vital signs: Initial Vital Signs Temperature 97.8 F 11/20/24 15:41 Temperature Source Temporal Artery Scan 11/20/24 15:41 Pulse Rate 104 H 11/20/24 15:41 Respiratory Rate 18 11/20/24 15:41 Blood Pressure 107/65 11/20/24 15:41 Blood Pressure Mean 79 11/20/24 15:41 Blood Pressure Position Sitting 11/20/24 15:41 Pulse Oximetry 98 11/20/24 15:41 Oxygen Delivery Method Room Air 11/20/24 15:41 Vital Signs Temperature 97.8 F 11/20/24 15:41 Pulse Rate 104 H 11/20/24 15:41 Respiratory Rate 18 11/20/24 15:41 Blood Pressure 107/65 11/20/24 15:41 Pulse Oximetry 98 11/20/24 15:41 Oxygen Delivery Method Room Air 11/20/24 15:41 Temperature 97.8 F 11/20/24 15:41 Pulse Rate 104 H 11/20/24 15:41 Respiratory Rate 18 11/20/24 15:41 Blood Pressure 107/65 11/20/24 15:41 Pulse Oximetry 98 11/20/24 15:41 Oxygen Delivery Method Room Air 11/20/24 15:41 Medical Decision Making MDM Narrative Medical decision making narrative: Patient presents with an episode of acting out after being told where her bicycle helmet. She is remorseful. Patient is developmentally delayed. We did do standard toxicology workup and we had her see a mental health provider. Patient is felt to be not suicidal or homicidal. She can be released to home and patient would prefer to be released to her mother instead of her father and stepmother this weekend. Try to facilitate that. She will continue current medications and follow-up with her primary physician as needed. Lab Data Labs: Lab Results 11/20/24 11/20/24 Range/Units 16:10 16:53 WBC 8.16 (4.50-11.00) K/uL RBC 3.91 L (4.00-5.20) m/uL Hgb 12.7 (12.0-16.0) gm/dL Hct 37.1 (33.0-51.0) % MCV 95 (80-100) fL MCH 33 (26-34) pg MCHC 34 (32-36) gm/dL RDW Coeff of Nixon 12.4 (11.5-15.5) % Plt Count 305 (140-440) K/uL Neut % (Auto) 70.1 (42.0-72.0) % Lymph % (Auto) 18.6 L (20-44) % Toole % (Auto) 9.4 (0.0-11.0) % Eos % (Auto) 1.5 (0.0-7.0) % Baso % (Auto) 0.4 (0.0-3.0) % Neut # (Auto) 5.72 (1.7-7.0) K/uL Lymph # (Auto) 1.50 (0.90-2.90) K/uL Toole # (Auto) 0.80 (0.00-0.90) K/UL Eos # (Auto) 0.12 (0.00-0.50) K/uL Baso # (Auto) 0.03 (0.00-0.30) K/uL Abs Immat Gran (auto) 0.00 (0.00-0.30) K/uL Imm/Tot Granulo (auto) 0.0 % Sodium 142 (135-149) mmol/L Potassium 4.0 (3.6-5.1) mmol/L Chloride 106 (96-114) mmol/L Carbon Dioxide 26 (20-32) mmol/L Anion Gap 10 (7-15) mEq/L BUN 16 (5-24) mg/dL Creatinine 0.8 (0.5-1.5) mg/dL Estimated Creat Clear 88.36 Estimated GFR 108 ml/min Glucose 91 (60-115) mg/dL Calcium 10.0 (8.4-10.6) mg/dL Total Bilirubin 0.4 (0.1-1.5) mg/dL AST 30 (12-35) U/L ALT 15 (4-35) U/L Alkaline Phosphatase 52 (40-150) U/L Total Protein 8.5 H (6.0-8.3) g/dL Albumin 5.1 H (3.3-5.0) g/dL HCG, Qual Negative (Negative) Urine Color Yellow (Yellow) Urine Appearance Clear (Clear) Urine pH 6.5 (5.0-8.5) Ur Specific [place] 1.015 (1.000-1.030) Urine Protein Negative (Negative) Urine Glucose (UA) Negative (Negative) Urine Ketones Negative (Negative) Urine Blood Trace-lysed A (Negative) Urine Nitrite Negative (Negative) Urine Bilirubin Negative (Negative) Urine Urobilinogen 0.2 (0.2-1.0) Ur Leukocyte Esterase Negative (Negative) Urine RBC 0-2 (0-2) Urine WBC 0-2 (0-5) Ur Squamous Epith Cells Few (None-Few) Urine Bacteria None (None) Salicylates < 1.0 L (1.0-10) mg/dL Urine Opiates Screen Negative (Negative) Ur Oxycodone Screen Negative (Negative) Urine Methadone Screen Negative (Negative) Acetaminophen < 10.0 (10.0-30.0) ug/mL Ur Barbiturates Screen Negative (Negative) U Tricyclic Antidepress Negative (Negative) Ur Phencyclidine Scrn Negative (Negative) Ur Amphetamines Screen Negative (Negative) U Methamphetamines Scrn Negative (Negative) U Benzodiazepines Scrn Negative (Negative) Urine Cocaine Screen Negative (Negative) U Marijuana (THC) Screen Negative (Negative) Ur Drug Screen Comment See Note Ethyl Alcohol < 0.01 (0.01-0.03) % Discharge Plan Discharge Clinical Impression: Anxiety Patient Disposition: Home w/ Parent or Adult Condition: Stable Instructions: Anxiety (ED) Additional Instructions: Continue current care. Follow-up with your doctor as needed. Activity Level: No Restrictions Discharge Diet: Regular Prescriptions: No Action zonisamide 100 mg capsule 400 mg PO DAILY Rx Instructions: 4 capsules at bedtime, per pt father. paroxetine HCl 12.5 mg tablet extended release 24 hr 12.5 mg PO DAILY Follow Up/Referrals: Provider,Not a Local [Primary Care Provider, Family Practice] Stand Alone Forms: [employer] Info Instructions
[2024-11-20 16:21] LABS: Hematocrit* 37.1 % (33.0-51.0); Hemoglobin* 12.7 gm/dL (12.0-16.0); Immature Granulocytes Abs Auto 0.00 K/uL (0.00-0.30); Immature Granulocytes Pct Auto 0.0 %; Mean Corpuscular HGB Conc 34 gm/dL (32-36); Mean Corpuscular Hemoglobin 33 pg (26-34); Mean Corpuscular Volume 95 fL (80-100); RDW Coefficient of Variation % 12.4 % (11.5-15.5); Red Blood Count* 3.91 m/uL (4.00-5.20); White Blood Count* 8.16 K/uL (4.50-11.00)
[2024-11-20 16:30] LABS: Lymphocytes Absolute Auto 1.50 K/uL (0.90-2.90)
[2024-11-20 16:31] LABS: Slide Review Reflex No
[2024-11-20 17:03] LABS: Appearance Urine Clear (Clear); HCG Qualitative Serum* Negative (Negative)
[2024-11-20 17:03] LABS: Albumin* 5.1 g/dL (3.3-5.0); Chloride* 106 mmol/L (96-114); Potassium* 4.0 mmol/L (3.6-5.1); Sodium* 142 mmol/L (135-149)
[2024-11-20 17:06] LABS: Alanine Aminotransferase* 15 U/L (4-35); Alkaline Phosphatase* 52 U/L (40-150); Anion Gap 10 mEq/L (7-15); Aspartate Amino Transferase* 30 U/L (12-35); Bilirubin Total* 0.4 mg/dL (0.1-1.5); Blood Urea Nitrogen* 16 mg/dL (5-24); Calcium* 10.0 mg/dL (8.4-10.6); Carbon Dioxide* 26 mmol/L (20-32); Creatinine* 0.8 mg/dL (0.5-1.5); Est. Creatinine Clearance* 88.36; Estimated Glomerular Filt Rate 108 ml/min; Glucose* 91 mg/dL (60-115); Total Protein* 8.5 g/dL (6.0-8.3)
[2024-11-20 17:07] LABS: Acetaminophen* < 10.0 ug/mL (10.0-30.0); Ethanol* < 0.01 % (0.01-0.03); Salicylate* < 1.0 mg/dL (1.0-10)
[2024-11-20 17:23] LABS: Cannabinoid Screen Urine Negative (Negative); Methamphetamines Screen Urine Negative (Negative); Tricyclic Antidepressant Urine Negative (Negative)
--- NOTE | 2024-11-20 20:47 | ED.NURSE ---
Pt was cooperative and pleasant during time in ER. Pt used own ipad to listen to music, ate two sandwiches, and took a nap. Food Assembler Kitchen did update Pt biological father over phone and Pt was discharged to home with her biological mother.
== END 2024-11-20 19:58 | disposition home or self-care (01) ==
PROVIDERS: Emergency Provider Internal Medicine
DX: F41.9 Anxiety disorder, unspecified (principal)
CPT/HCPCS: 36415; 80053; 80143; 80179; 80306; 81001; 81003; 82077; 84703; 85025; 99283; Q3014

== ENCOUNTER 2024-12-11 18:25 | Outpatient (CLI) | payer OTHER, BC, SELFPAY | END 2024-12-11 18:26 | disposition home or self-care (01) | LOC: AMB 12-14 11:11 | PROVIDERS: Visit Provider Emergency Medicine | DX: F29 Unspecified psychosis not due to a substance or known physiological condition (principal) | CPT/HCPCS: A0425; A0429 ==

== ENCOUNTER 2024-12-11 18:50 | Inpatient (IN) | payer OTHER, BC, SELFPAY ==
--- OUTSIDE RECORDS SUMMARY | 2024-10-26 09:17 | XMS_ITS | Encounter Summary ---
Author Organization [facility] Address [address] [place] [address] Care Team Providers Care Lumber Inspector Name Role Phone Maryam Barker M.D. 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 [address] [place] [address] Phone: tel: fax: [facility] Referral ID Status Reason Start Date Expiration Date Visits Re quested Visits Authorized [id number] Closed 08/14/2024 11/14/2025 1 1 Encounter Details Date Type Department Care Team (Latest Contact Info) Description 10/26/2024 9:17 AM CDT - 10/26/2024 11:59 PM CDT Hospital Encounter Department of Neurology in [place], [place] [address] [place] [address] Jie Mcintyre M.D. 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 I have a [facility] place to live 08/17/2024 Comments No Sex and Gender Information Value Date Recorded Sex Assigned at Female 07/22/2023 4:04 PM CDT Legal Sex Female 10:39 AM CDT Gender Identity Female 07/22/2023 4:04 PM CDT Sexual Orientation Straight 07/22/2023 4: 04 PM CDT documented as of this encounter Medications at Time of Discharge PARoxetine (PaxiL CR) 12.5 mg 24 hr tabletIndications :Depressive Disorder,Anxiety Take 1 tablet (12.5 mg total) by mouth daily. 90 tablet 3 09/22/2024 09/22/2025 divalproex (Depakote ER) 250 mg 24 hr tablet Take 3 tablets by mouth 2 (two) times a day. 12/08/2021 11/17/2024 zonisamide (Zonegran) 100 mg capsule 4 take 400 mg (4 capsules) at night 360 capsule 2 06/09/2024 11/17/2024 documented as of this encounter Progress Notes * Elodia Barroso CCLS - 10/26/2024 9:30 AM CDT Child Life Ambulatory Note Presenting Problem: Vivian Holloway is a 18 y.o. female seen today. Area Patient Seen In: Outpatient Specialty Clinic (EEG). Patient being seen at [facility] related to: Problem List[1] Type of Intervention: Coping assessment, Normalization, Procedural support Type of Procedure: EEG Coping and Patient Response to Interventions Patient's Preferred Coping Tools: Alternate focus, Comfort item, Family presence Patient's Response Pre-Procedure: Calm, Cooperative, Engages willingly Patient's Response During Procedure: Calm, Cooperative, Held still independently This CCLS introduced self and services to pt and caregiver. Pt easily engaged with this CCLS in normalization conversation. Pt sat independently in chair during EEG. 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 Pt stayed calm and cooperative throughout. 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 Clinical Interpretation: The short-term video EEG shows a mild degree of diffuse nonspecific slowing of the background and frequent to abundant activation of generalized spike and polyspike and wave discharges lasting 1-2.5 seconds without apparent clinical correlate, which would be consistent with a generalized epilepsy. Classification: SPECIAL STUDY - Short-term video EEG. Dysrhythmia grade 3 generalized atypical spike and polyspike and wave discharges (awake and asleep). EKG channel. Report: The short-term video EEG recording during wakefulness contains up to 9 Hz alpha activity over the posterior head regions with frequent mild diffuse slowing in the 7-8 Hz range. There was frequent activation of generalized atypical spike and polyspike and wave discharges lasting 1-2.5 seconds without apparent clinical correlate during the recording. Photic stimulation increased the frequency of generalized discharges. There was no additional activation during hyperventilation. During the recording, the patient fell asleep spontaneously. During drowsiness and sleep, there was increased activation of generalized discharges. The EKG channel was unremarkable. us Jie Mcintyre M.D. 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 [address] [place] [phone] PCP - General Family Medicine 01/29/23 documented as of this encounter
--- OUTSIDE RECORDS SUMMARY | 2024-10-29 15:30 | XMS_ITS | Encounter Summary ---
Author Organization [facility] Address [address] [place] [address] Care Team Providers Care Port Patrol Officer Name Role Phone Maryam Barker M.D. Primary Care Provider Reason for Visit * Outpatient (Routine) - Closed Specialty Diagnoses / Procedures Referred By John duaret Referred To Contact Child and Adolescent Neurology Jie Mcintyre M.D. [address] [place] [phone] Phone: tel: fax: [facility] Referral ID Status Reason Start Date Expiration Date Visits Re quested Visits Authorized [id number] Closed 08/04/2024 02/03/2026 1 1 Encounter Details Date Type Department Care Team (Late st Contact Info) Description 10/29/2024 3:30 PM CDT Telemedicine Department of Neurology in [place], [place] [address] [place] [phone] Jie Mcintyre M.D. [address] [place] [phone] Seizure Absence (HCC) (Primary Dx); Development Delay Intellectual Social History Tobacco Use Types Packs/Day Years Used Date Smoking Tobacco: Never Smokeless Tobacco: Never Alcohol Use Standard Drinks/Week Comments Never 0 (1 standard drink = 0.6 oz pur e alcohol) [facility] Utilities Answer Date Recorded In [...] living situation today? I have a [facility] place to live 08/17/2024 Comments No [...] audio/video technology by Jie Mcintyre M.D. in [facility] to the patient in Patient's Home. Vivian [...] documented in this encounter Plan of Treatment Pending Results Name Type Priority Associated Diagnoses Date /Time Zonisamide Level Lab Routine Seizure Absence (HCC) Development Delay Intellectual 12/10/2024 9:10 AM CDT Scheduled Orders Name Type Priority Associated Diagnoses Orde r Schedule Zonisamide Level Lab Routine Seizure Absence (HCC) Development Delay Intellectual Expected: 10/29/2024 (Approximate), Expires: 01/29/2026 documented as of this encounter Results * Comprehensive Metabolic Panel (12/10/2024 9:10 AM CDT) Potassium, P 4.1 3.6 - 5.2 mmol/L 12/10/2024 9:56 AM CDT [facility] Sodium, P 141 135 - 145 mmol/L 12/10/2024 9:56 AM CDT OW[facility] Chloride, P 106 98 - 107 mmol/L 12/10/2024 9:56 AM CDT OW[facility] Bicarbonate, P 24 22 - 29 mmol/L 12/10/2024 9:56 AM CDT OW[facility] Anion Gap, P 11 7 - 15 12/10/2024 9:56 AM CDT [facility] BUN (Blood Urea Nitrogen), P 14 6 - 21 mg/dL 12/10/2024 9:56 AM CDT [facility] Creatinine 0.88 0.59 - 1.04 mg/dL 12/10/2024 9:56 AM CDT OWAT Estimated GFR (eGFR) >90 >=60 mL/min/BS A 12/10/2024 9:56 AM CDT OWAT Comment: Estimated GFR calculated using the 2020 CKD_EPI creatinine equation. Calcium, Total, P 9.4 8.6 - 10.0 mg/dL 12/10/2024 9:56 AM CDT OW[facility] Glucose, P 99 70 - 140 mg/dL 12/10/2024 9:56 AM CDT OW[facility] Protein, Total, P 7.9 6.3 - 7.9 g/dL 12/10/2024 9:56 AM CDT OWAT Albumin, P 4.7 3.5 - 5.0 g/dL 12/10/2024 9:56 AM CDT [facility] Aspartate Aminotransferase (AST), P 15 8 - 43 U/L 12/10/2024 9:56 AM CDT OW[facility] Alkaline Phosphatase, P 69 35 - 104 U/L 12/10/2024 9:56 AM CDT OW[facility] Alanine Aminotransferase (ALT), P 11 7 - 45 U/L 12/10/2024 9:56 AM CDT OWAT Bilirubin, Total, P 0.4 0.0 - 1.2 mg/dL 12/10/2024 9:56 AM CDT OW[facility] Blood (Blood, Venous) 12/10/2024 9:10 AM CDT 12/10/2024 9:16 AM CDT Jie Mcintyre M.D. LAB BLOOD ADD-ON Final Result [facility] [address] [place] [address], [facility] [place] [address] [place] [address] * CBC with Differential, Blood (12/10/2024 9:10 AM CDT) Hemoglobin 12.9 11.6 - 15.0 g/dL 12/10/2024 9:22 AM CDT OW[facility] Hematocrit 37.2 35.5 - 44.9 % 12/10/2024 9:22 AM CDT [facility] Erythrocytes 3.95 3.92 - 5.13 x10(12)/L 12/10/2024 9:22 AM CDT [facility] MCV 94.2 78.2 - 97.9 fL 12/10/2024 9:22 AM CDT [facility] RBC Distrib Width 12.6 12.2 - 16.1 % 12/10/2024 9:22 AM CDT [facility] Platelet Count 276 157 - 371 x10(9)/L 12/10/2024 9:22 AM CDT [facility] Leukocytes 5.3 3.4 - 9.6 x10(9)/L 12/10/2024 9:22 AM CDT [facility] Neutrophils 2.73 1.56 - 6.45 x10(9)/L 12/10/2024 9:22 AM CDT [facility] Lymphocytes 1.88 0.95 - 3.07 x10(9)/L 12/10/2024 9:22 AM CDT [facility] Monocytes 0.58 0.26 - 0.81 x10(9)/L 12/10/2024 9:22 AM CDT [facility] Eosinophils 0.10 0.03 - 0.48 x10(9)/L 12/10/2024 9:22 AM CDT [facility] Basophils 0.05 0.01 - 0.08 x10(9)/L 12/10/2024 9:22 AM CDT [facility] Blood (Blood, Venous) 12/10/2024 9:10 AM CDT 12/10/2024 9:16 AM CDT us Jie Mcintyre M.D. LAB BLOOD ADD-ON Final Result [facility] [address], [place] [address], [facility] [place] [address] [place] [address] documented in this encounter Visit Diagnoses Diagnosis Seizure Absence (HCC)- Primary Development Delay Intellectual documented in this encounter Additional Health Concerns Assessment Noted Time PHQ-9 Depression Total Score: 12 025 11:19 AM CDT documented as of this encounter Care Teams Port Patrol Officer Relationship Specialty Start Date End Date Maryam Barker M.D. [address] [phone] PCP - General Family Medicine 01/29/23 documented as of this encounter
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
--- OUTSIDE RECORDS SUMMARY | 2024-11-23 15:30 | XMS_ITS | Encounter Summary ---
Author Organization [facility] Address [address] [place] [address] Care Team Providers Care Head Cd Reactor Operator Name Role Phone Maryam Barker M.D. 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 [address] [place] [address] Phone: tel: fax: [facility] Referral ID Status Reason Start Date Expiration Date Visits Re quested Visits Authorized [id number] Closed 10/21/2024 01/21/2026 1 1 Encounter Details Date Type Department Care Team (Latest Contact Info) Description 11/23/2024 3:30 PM CDT - 11/23/2024 11:59 PM CDT Hospital Encounter Department of Radiology, [facility], in [place], [place] [address] [place] [address] Tommy Reis M.D. 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 I have a [facility] place to live 08/17/2024 Comments No Sex and Gender Information Value Date Recorded Sex Assigned at Female 07/22/2023 4:04 PM CDT Legal Sex Female 10:39 AM CDT Gender Identity Female 07/22/2023 4:04 PM CDT Sexual Orientation Straight 07/22/2023 4: 04 PM CDT documented as of this encounter Medications at Time of Discharge PARoxetine (PaxiL CR) 12.5 mg 24 hr tabletIndication s:Depressive Disorder,Anxiety Take 1 tablet (12.5 mg total) by mouth daily. 90 tablet 3 09/22/2024 09/22/2025 zonisamide (Zonegran) 100 mg capsuleIndicatio ns:Seizure Absence (HCC) Take 5 capsules (500 mg total) by mouth daily. 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 Narrative 11/23/2024 4:15 PM CDT EXAM: US KIDNEYS BILATERAL WITH BLADDER COMPARISON: None. FINDINGS: Right kidney: 10.6 cm Cortical thickness: Normal. Parenchymal echogenicity: Normal. Collecting system: No hydronephrosis. Masses: None detected. Left kidney: 10.4 cm Cortical thickness: Normal. Parenchymal echogenicity: Normal. Collecting system: No hydronephrosis. Masses: None detected. Bladder: Normal. Procedure Note Barbara Deutsch M.D. - 11/23/2024 EXAM: US KIDNEYS BILATERAL WITH BLADDER COMPARISON: None. FINDINGS: Right kidney: 10.6 cm Cortical thickness: Normal. Parenchymal echogenicity: Normal. Collecting system: No hydronephrosis. Masses: None detected. Left kidney: 10.4 cm Cortical thickness: Normal. Parenchymal echogenicity: Normal. Collecting system: No hydronephrosis. Masses: None detected. Bladder: Normal. IMPRESSION: Normal kidneys. 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 [address] [address] PCP - General Family Medicine 01/29/23 documented as of this encounter
--- OUTSIDE RECORDS SUMMARY | 2024-11-29 14:37 | XMS_ITS | Encounter Summary ---
Author Organization [facility] Address [address] [place] [address] Care Team Providers Care Process Tank Tender Name Role Phone Maryam Barker M.D. Primary Care Provider Reason for Visit * Reason Comments MENTAL HEALTH ISSUE Encounter Details Date Type Department Care Team (Late st Contact Info) Description 11/29/2024 2:37 PM CDT - 11/29/2024 11:59 PM CDT Emergency [facility] [address] [place] [phone] Discharge Disposition: Home or Self Care Social History Tobacco Use Types Packs/Day Years Used Date Smoking Tobacco: Never Smokeless Tobacco: Never Alcohol Use Standard Drinks/Week Comments Never 0 (1 standard drink = 0.6 oz pur e alcohol) [facility] Utilities Answer Date Recorded In the past 12 months has [employer], gas, oil, or water company threatened [...] your living situation today? I have a [facility] place to live 08/17/2024 Comments [...] on file documented as of this encounter Visit Diagnoses Not on filedocumented in this encounter Additional Health Concerns Assessment Noted Time PHQ-9 Depression Total Score: 12 025 11:19 AM CDT documented as of this encounter Care Teams Process Tank Tender Relationship Specialty Start Date End Date Maryam Barker M.D. [address], [place] [address] PCP - General Family Medicine 01/29/23 documented as of this encounter
--- OUTSIDE RECORDS SUMMARY | 2024-12-10 09:00 | XMS_ITS | Encounter Summary ---
Author Organization [facility] Address [address] [place] [address] Care Team Providers Care Mortgage Counselor Name Role Phone Maryam Barker M.D. Primary Care Provider Encounter Details Date Type Department Care Team (Latest Contact Info) Description 12/10/2024 9:00 AM CDT - 12/10/2024 11:59 PM CDT Hospital Encounter Department of Laboratory Medicine in [place], [place] [address] [place] [phone] Jie Mcintyre M.D. [address] [place] [address] Seizure Absence (HCC); Development Delay Intellectual Discharge Disposition: Home or Self Care Social History Tobacco Use Types Packs/Day Years Used Date Smoking Tobacco: Never Smokeless Tobacco: Never Alcohol Use Standard Drinks/Week Comments Never 0 (1 standard drink = 0.6 oz pur e alcohol) [facility] Utilities Answer Date Recorded In the past 12 months has [employer], gas, oil, or water company threatened [...] your living situation today? I have a [facility] place to live 08/17/2024 Comments No [...] as of this encounter Plan of Treatment Pending Results Name Type Priority Associated Diagnoses Date /Time Zonisamide Level Lab Routine Seizure Absence (HCC) Development Delay Intellectual 12/10/2024 9:10 AM CDT Scheduled Orders Name Type Priority Associated Diagnoses Orde r Schedule Zonisamide Level Lab Routine Seizure Absence (HCC) Development Delay Intellectual Once for 1 Occurrences starting 12/10/2024 until 12/10/2024 documented as of this encounter Procedures Procedure Name Priority Date/Time Associated Diagnosis Comments CBC WITH DIFFERENTIAL, B Routine 12/10/2024 9:10 AM CDT Seizure Absence (HCC) Development Delay Intellectual COMPREHENSIVE METABOLIC PANEL, S/P Routine 12/10/2024 9:10 AM CDT Seizure Absence (HCC) Development Delay Intellectual documented in this encounter Results * Comprehensive Metabolic Panel [...] Mcintyre M.D. LAB BLOOD ADD-ON Final Result [facility] [address] [place] [address], [facility] [place] [address] [place] [address] * CBC with Differential, Blood (12/10/2024 9:10 [...] Mcintyre M.D. LAB BLOOD ADD-ON Final Result [facility] [address] [place] [address], [facility] [place] [address] [place] [address] documented in this encounter Visit Diagnoses Diagnosis Seizure Absence (HCC) Development Delay Intellectual documented in this encounter Additional Health Concerns Assessment Noted Time PHQ-9 Depression Total Score: 12 025 11:19 AM CDT documented as of this encounter Care Teams Mortgage Counselor Relationship Specialty Start Date End Date Maryam Barker M.D. [address] [place] [address] PCP - General Family Medicine 01/29/23 documented as of this encounter
--- OUTSIDE RECORDS SUMMARY | 2024-12-11 18:52 | XMS_ITS | Encounter Summary ---
Author Organization [facility] Address [address] [place] [address] Care Team Providers Care Stud Dairy Cattle Farmer Name Role Phone Maryam Barker M.D. Primary Care Provider Encounter Details Date Type Department Care Team (Late st Contact Info) Description 11/27/2024 Results Follow-Up Department of Medical Genetics in [place], [place] [address] [place] [address] Tommy Reis M.D. [address] [place] [address] US Kidneys Bilateral with Bladder Social History Tobacco Use Types Packs/Day Years Used Date Smoking Tobacco: Never Smokeless Tobacco: Never Alcohol Use Standard Drinks/Week Comments Never 0 (1 standard drink = 0.6 oz pur e alcohol) [place] Utilities Answer Date Recorded In the past [...] your living situation today? I have a [facility] place to live 08/17/2024 Comments No Sex and Gender Information Value Date Recorded Sex Assigned at Female 07/22/2023 4:04 PM CDT Legal Sex Female 10:39 AM CDT Gender Identity Female 07/22/2023 4:04 PM CDT Sexual Orientation Straight 07/22/2023 4: 04 PM CDT documented as of this encounter Miscellaneous Notes * Result Encounter Note - Tommy Reis M.D. - 11/27/2024 12:54 PM CDT Normal kidney ultrasound. documented in this encounter Plan of Treatment Not on file documented as of this encounter Visit Diagnoses Not on filedocumented in this encounter Additional Health Concerns Assessment Noted Time PHQ-9 Depression Total Score: 12 025 11:19 AM CDT documented as of this encounter Care Teams Stud Dairy Cattle Farmer Relationship Specialty Start Date End Date Maryam Barker M.D. [address] [place] [address] PCP - General Family Medicine 01/29/23 documented as of this encounter
--- OUTSIDE RECORDS SUMMARY | 2024-12-11 18:52 | XMS_ITS | Clinical Summary ---
Author Organization [facility] Address [address] [place] [address] Care Team Providers Care Actuary Manager Name Role Phone Maryam Barker MD Primary Care Provi sary Allergies No known active allergies Medications PARoxetine (PAXIL CR) 12.5 mg extended-Release tablet Take 12.5 mg by mouth once daily. Active zonisamide (ZONEGRAN) 100 mg capsule Take 500 mg by mouth at bedtime. 11/17/2024 Active Active Problems Problem Noted Date Diagnosed Date Intellectual delay 09/13/2024 Encounters Date Type Department Care Team Description 11/29/2024 6:25 PM CDT - 11/30/2024 12:27 PM CDT Emergency [facility] [address] [place] [address] Rashaad Guo MD Geiger, Nicholas Allen, DO Butler, McKinzy Faith, MD Suicidal ideations (Primary Dx); Agitation; Homicidal ideations; Intellectual delay; Anxiety; Tachycardia Discharge Disposition: Home Self Care 11/29/2024 2:32 PM CDT - 11/29/2024 3:57 PM CDT Emergency [address] [address] Polo Lowery MD Developmental delay (Primary Dx); Behavior problem Discharge Disposition: Home Self Care 11/29/2024 Travel 09/13/2024 4:25 PM CDT - 09/13/2024 6:45 PM CDT Emergency [facility] [address] [place] [address] Chris Urias MD Suicidal behavior without attempted self-injury (Primary Dx); Intellectual delay Discharge Disposition: Home Self Care 09/13/2024 Travel from Last 3 Months Social History Tobacco Use Types Packs/Day Years Used Date Smoking Tobacco: Never Assessed Interpersonal Safety Answer Date Record ed Are you being hit, kicked, p ushed or yelled at (see row info)? No 11/29/2024 Interpersonal Safety Abuse 12 - 18 Not on file 11/29/2024 Interpersonal Safety Ambulatory Vulnerability No t on file 11/29/2024 Comments No Sex and Gender Information Value Date Recorded Sex Assigned at Not on file Legal Sex Female 11:01 AM CDT Gender Identity Not on file Sexual Orientation Not on file Last Filed Vital Signs Vital Sign Reading Time Taken Comments Blood Pressure 94/68 11/30/2024 11:00 AM CDT Pulse 88 11/30/2024 11:00 AM CDT Temperature 36.6 C (97.8 F) 11/30/2024 9:00 AM CDT Respiratory Rate 16 11/30/2024 11:00 AM CDT Oxygen Saturation 98% 11/30/2024 11:00 AM CDT Inhaled Oxygen Concentration - - Weight 63.5 kg (140 lb) 11/29/2024 6:41 PM CDT Height 172.7 cm (5' 8) 11/29/2024 6:51 PM CDT Body Mass Index 21.29 11/29/2024 6:41 PM CDT Plan of Treatment Not on file Insurance [facility] Care Teams Actuary Manager Relationship Specialty Start Date End Date Maryam Barker MD [address] [place] [address] PCP - General Family Practice 09/13/24
--- OUTSIDE RECORDS SUMMARY | 2024-12-11 18:52 | XMS_ITS | Encounter Summary ---
Author Organization [facility] Address [address] [place] [address] Care Team Providers Care Survey Party Chief Name Role Phone Maryam Barker M.D. Primary Care Provider Encounter Details Date Type Department Care Team (Late st Contact Info) Description 10/29/2024 Clinical Communication Department of Family Medicine, [facility], in [place], [place] [address] [phone] Maryam Barker M.D. [address] [phone] Social History Tobacco Use Types Packs/Day Years Used Date Smoking Tobacco: Never Smokeless Tobacco: Never Alcohol Use Standard Drinks/Week Comments Never 0 (1 standard drink = 0.6 oz pur e alcohol) [facility] Utilities Answer Date Recorded In the past 12 months has [employer], gas, oil, or water company threatened [...] your living situation today? I have a [facility] place to live 08/17/2024 Comments [...] documented as of this encounter Care Teams Survey Party Chief Relationship Specialty Start Date End Date Maryam Barker M.D. NPGreer: [phone] [address] [place] [address] PCP - General Family Medicine 01/29/23 documented as of this encounter
--- OUTSIDE RECORDS SUMMARY | 2024-12-11 18:52 | XMS_ITS | Clinical Summary ---
Author Organization [facility] Address [address] [place] [address] Care Team Providers Care Money Manager Name Role Phone Maryam Barker M.D. Primary Care Provider Source Comments Patient records contain information from all sites at [facility]. For routine questions regarding patient records, call [phone] during business hours, M-F 8:00 AM - 5:00 PM Central Time. Record requests for emergency care only can be directed to [phone] at any time.[facility] Allergies Active Allergy Reactions Criticality Noted [...] organization. Date Type Department Care Team Description 12/10/2024 9:00 AM CDT - 12/10/2024 11:59 PM CDT Hospital Encounter Department of Laboratory Medicine in [place], [place] [address] [phone] Jie Mcintyre M.D. Seizure Absence (HCC); Development Delay Intellectual Discharge Disposition: Home or Self Care 11/29/2024 2:37 PM CDT - 11/29/2024 11:59 PM CDT Emergency [facility] [address], [place] [address] Discharge Disposition: Home or Self Care 11/27/2024 Results Follow-Up Department of Medical Genetics in [place], [place] [address] [place] [address] Tommy Reis M.D. US Kidneys Bilateral with Bladder 11/23/2024 3:30 PM CDT - 11/23/2024 11:59 PM CDT Hospital Encounter Department of Radiology, [facility], in [place], [place] [address] [place] [address] Tommy Reis M.D. 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 Seizure Absence (HCC) (Primary Dx); Development Delay Intellectual 10/29/2024 Clinical Communication Department of [facility], [facility], [place], [place] [address] [place] [phone] Maryam Barker M.D. 10/26/2024 9:17 AM CDT - 10/26/2024 11:59 PM CDT Hospital Encounter Department of Neurology in [place], [place] [address] [place] [phone] Jie Mcintyre M.D. 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 Med Refill 09/22/2024 11:20 AM CDT Telemedicine Department of Family Medicine, [facility], in [place], [place] [address] [phone] Simran Solis M.D. Depressive Disorder (Primary Dx); Anxiety; Suicide Ideation 09/13/2024 4:25 PM CDT - 09/13/2024 11:59 PM CDT Emergency [facility] [address] [facility] [place] [phone] Discharge Disposition: Home or Self Care from Last 3 Months Immunizations Immunization Administration [...] Seizures Brother 3 kirus ADD Brother 4 restorationism Asthma Brother 4 restorationism Bipolar disorder Father 1 Foreign Suicide Attempts [...] Alive Brother 3 kirus Alive Brother 4 restorationism Alive Father 1 Foreign Father 2 elijah [...] drink = 0.6 oz pur e alcohol) [facility] Utilities Answer Date Recorded In the past 12 months has th e [employer], gas, oil, or water [employer] threatened to shut off services in your [...] your living situation today? I have a [facility] place to live 08/17/2024 Comments No Sex [...] CDT Respiratory Rate 15 04/10/2023 1:26 PM TYPING BOOKKEEPER Oxygen Saturation - - Inhaled Oxygen Concentration - - Weight 61.3 kg (135 lb 2.3 oz) 11/17/2024 11:03 AM CDT Height 167 cm (5' 5.75) 11/17/2024 11:03 AM CDT Body Mass Index 21.98 11/17/2024 11:03 AM CDT Plan of Treatment Health Maintenance Due Date Last Done Comments [...] Well Child Check-Up 10/13/2024 Well Child Check-Up ([facility]) 10/13/2024 Influenza Vaccine (#1) 2025 6, [...] Screening during Well Child Visit Completed 04/10/2023 Depression Screening (Annual PHQ-2) Completed 08/21/2024 Anemia/Iron Deficiency Screening During Well Child Visit (if High Risk Menstruating Female) Completed 12/10/2024, 07/23/2023 Meningococcal Vaccine Aged Out No bonnie jone eligible based on patient's age to complete this topic Procedures Procedure Name Priority Date/Time Associated Diagnosis Comments COMPREHENSIVE METABOLIC PANEL, S/P Routine 12/10/2024 9:10 AM CDT Seizure Absence (HCC) Development Delay Intellectual CBC WITH DIFFERENTIAL, B Routine 12/10/2024 9:10 AM CDT Seizure Absence (HCC) Development Delay Intellectual US KIDNEYS BILATERAL WITH BLADDER RAD - Routine (most inpatients and all outpatients) 11/23/2024 4:11 PM CDT 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 LAB BLOOD ADD-ON Final Result [facility] [address] [place] [address], [place] [facility] in [place] [address] [place] [address] * Comprehensive Metabolic Panel (12/10/2024 9:10 AM CDT) Pathologist [facility] [place] Potassium, P 4.1 3.6 - 5.2 mmol/L [...] Mcintyre M.D. LAB BLOOD ADD-ON Final Result [facility] [address] [place] [address], [facility] in [place] [address] [place] [address] * US Kidneys Bilateral with Bladder (11/23/2024 [...] None detected. Bladder: Normal. IMPRESSION: Normal kidneys. Tommy Reis M.D. IMG US PROCEDURES Final Result * EEG (10/26/2024 10:35 AM CDT) Narrative [facility] - 10/26/2024 11:23 AM CDT Images from [...] Mcintyre M.D. NEUROLOGY ORDERABLES Fi nal Result [facility] NA from Last 3 Months Insurance [employer] Member Subscriber Plan / Payer (Ef fective 2022-Present) Name:VIVIAN HOLLOWAY Member ID:[id number] Relation to Subscriber:Child Name:SABINE HOLLOWAY Subscriber ID:[id number] Date of :2005 (Home) Address: [address] [place] [address] Payer ID:Not on file Type:PPO Address: [address] [address] [place] [address] [facility] Care Teams Money Manager Relationship Specialty Start Date End Date Maryam Barker M.D. [address] [place] [phone] PCP - General Family Medicine 01/29/23
[2024-12-11 19:02] VITALS: BP 97/52; PULSE 112; RESP 16; TEMP 37.1; O2SAT 95; BMI 19.2
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
[2024-12-11 20:45] LABS: Albumin* 4.7 g/dL (3.3-5.0); Chloride* 107 mmol/L (96-114); Potassium* 4.1 mmol/L (3.6-5.1); Sodium* 141 mmol/L (135-149)
[2024-12-11 20:48] LABS: Alanine Aminotransferase* 14 U/L (4-35); Alkaline Phosphatase* 54 U/L (40-150); Anion Gap 10 mEq/L (7-15); Aspartate Amino Transferase* 25 U/L (12-35); Bilirubin Total* 0.4 mg/dL (0.1-1.5); Blood Urea Nitrogen* 16 mg/dL (5-24); Calcium* 9.8 mg/dL (8.4-10.6); Carbon Dioxide* 24 mmol/L (20-32); Creatinine* 0.9 mg/dL (0.5-1.5); Est. Creatinine Clearance* 74.97; Estimated Glomerular Filt Rate 94 ml/min; Glucose* 97 mg/dL (60-115); Total Protein* 8.0 g/dL (6.0-8.3)
[2024-12-11 20:50] LABS: Acetaminophen* < 10.0 ug/mL (10.0-30.0); Ethanol* < 0.01 % (0.01-0.03); Salicylate* < 1.0 mg/dL (1.0-10)
[2024-12-11 21:07] LABS: Hematocrit 35.1 % (33.0-51.0); Hemoglobin* 12.4 gm/dL (12.0-16.0); Immature Granulocytes Abs Auto 0.02 K/uL (0.00-0.30); Immature Granulocytes Pct Auto 0.2 %; Mean Corpuscular HGB Conc 35 gm/dL (32-36); Mean Corpuscular Hemoglobin 33 pg (26-34); Mean Corpuscular Volume 94 fL (80-100); RDW Coefficient of Variation % 12.4 % (11.5-15.5); Red Blood Count 3.72 m/uL (4.00-5.20); White Blood Count* 9.43 K/uL (4.50-11.00)
[2024-12-11 21:08] LABS: Ur HCG Qualitative* Negative (Negative)
[2024-12-11 21:09] LABS: Cannabinoid Screen Urine Negative (Negative); Methamphetamines Screen Urine Negative (Negative); Tricyclic Antidepressant Urine Negative (Negative)
[2024-12-11 21:17] LABS: Lymphocytes Absolute Auto 1.30 K/uL (0.90-2.90); Slide Review Reflex No
[2024-12-11 21:31] LABS: SARS PCR* Negative SARS-CoV-2 (Negative)
[2024-12-11 21:45] LABS: TSH With Reflex to FT4* 3.150 uIU/mL (0.270-4.200)
[2024-12-12 10:26] VITALS: BP 102/68; PULSE 68; RESP 16; TEMP 36.7; O2SAT 100
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
[2024-12-12 17:16] VITALS: O2SAT 98; BMI 24.5
[2024-12-12 17:18] VITALS: BP 102/71; RESP 18; O2SAT 98
[2024-12-12 20:21] VITALS: BP 103/61; PULSE 51; RESP 18; O2SAT 99
[2024-12-12] MEDS: ZONISAMIDE PO (20:34)
[2024-12-12 23:00] VITALS: RESP 18
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
[2024-12-13 07:00] VITALS: BP 77/65; PULSE 91; RESP 16; TEMP 36.8; O2SAT 95
--- NOTE | 2024-12-13 07:17 | PC.NURSE ---
End of shift note: Pt pleasant, alert and oriented. 1:1 with RN throughout shift. Pt appeared to be resting throughout shift.
[2024-12-13] MEDS: PAROXETINE 12.5 MG PO (10:38)
--- NOTE | 2024-12-13 13:39 | PC.NURSE ---
Called [facility] - single beds full, call back tomorrow. [facility] called at capacity call back tomorrow.
--- NOTE | 2024-12-13 13:53 | PC.NURSE ---
Notified DEC that there are no beds at [facility]. Will place back in queue and attempt to find bed.
[2024-12-13 14:45] VITALS: BP 91/53; PULSE 66; RESP 16; TEMP 36.9; O2SAT 98
--- NOTE | 2024-12-13 14:57 | PC.NURSE ---
[facility] called at 1215. Market Gardener informed there were no beds for placement at this time. Market Gardener called [facility] for additional assistance finding bed placement.
--- NOTE | 2024-12-13 14:59 | PC.NURSE ---
Shift note [id number]: Pt allowed to sleep until 0830. Pt woke easily with verbal stimuli and was in a cheerful mood. She was cooperative with physical assessment and VS. VS WNL & LS COA. Denies pain or discomfort. Answers questions appropriately. Pt encouraged to shower prior to breakfast and was able to do this independently with SBA. She is continent of bowel and bladder, voiding regularly and BM x1 this shift. Engaged in conversation with staff, pleasant, and cordial. Ambulated unit x1 after breakfast & x2 after lunch with RN escort. Looking out the window, pt commented she would like to run across the field and that she enjoys running from the police. She also mentioned she likes hunting. When asked what she hunts she stated deer and rabbits. When asked how she catches them she stated with my hands, and I eat them and giggled. Pt also needed to be redirected picking at 2 small scabs on the right side of her face. Scabs appear to be from acne, but were picked by pt into 2 small open areas that have a small amount of bleeding. Pt allowed RN to assist her in cleansing area which is now CHEN.
[2024-12-13 15:00] VITALS: PULSE 66; RESP 16
--- NOTE | 2024-12-13 15:07 | PM.IMPN1 ---
Assessment and Plan Assessment and plan (1) Suicidal thoughts: Problem comment: - 12/12/24 ER doc's note refers to EMS or police reporting that she made comments about wanting to , apparently by jumping in a [place]. This occurred while she was having an angry outburst. Upon arrival to the ER and later the medical floor, she denied thoughts of suicide or self harm. After family visit, now endorses thoughts of suicidal ideation on and off since May and would not contract for safety. I have consulted tele-mental health for repeat assessment. - 12/13 Although Vivian's mood has improved from yesterday, she continues to endorse recent suicidal thoughts, none today. Status: Acute (2) Outbursts of anger: Problem comment: - Only seen once here, associated with family visit on the evening of 12/12/24. Has otherwise been cooperative, calm, pleasant. 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 - It appears that her emotional control is that of approx a 5-6 year old. Unable to read. Able to do ADLs independently. Uses electronic devices independently. Status: Chronic (4) Epilepsy: Problem comment: Zonisamide sees Neurology Status: Chronic (5) Depression with anxiety: Problem comment: Sees [facility] Psychiatry and counselor at [facility]. Hx SI & self-injurious behavior. 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 She showered this morning, has been eating well, has gone for 2 walks in the hallway and has otherwise been sleeping. Vivian remembers me from yesterday and greeted me with smiles, jokes, and giggles. She says that hi is now oy, and we chatted for a while about a language she was making up. We talked about how her day went and she said it was okay. She denies any complaints or concerns. Nurse reports that [facility] was called in follow up this morning and recommended calling two places that might have an inpatient psychiatric bed available. Both reported being full. [facility] was called back and they made phone calls to 5 other places, all of which were full. [facility], which was full earlier, may now have a bed, and we are faxing her information to them. Exam Narrative: Exam Narrative: General: No acute distress. Awake alert oriented x3. Giggling, smiling. Holding the same stuffed animal as yesterday. Cooperative, follows commands. Cardiovascular: Regular rate and rhythm. No murmurs, gallops, or rubs. Chest: No increased work of breathing. Clear to auscultation bilaterally. No crackles or wheezes. Extremities: No edema, no cyanosis or clubbing. Skin: No jaundice, no pallor, no rashes on visible skin. Const: Vital Signs, click to edit/add: Vital Signs - 24 hr 12/12/24 17:16 12/12/24 17:18 12/12/24 20:21 Temperature Pulse Rate [Left P ulse Oximeter] 51 L Respiratory Rate 18 18 Blood Pressure [Ri ght Arm] 102/71 103/61 Pulse Oximetry 98 98 99 Oxygen Delivery Me thod Room Air Room Air Room Air 12/12/24 23:00 12/13/24 07:00 12/13/24 07:00 Temperature 98.2 F Pulse Rate [Left P ulse Oximeter] 91 91 Respiratory Rate 18 16 16 Blood Pressure [Ri ght Arm] 77/65 L Pulse Oximetry 95 Oxygen Delivery Co thod Room Air 12/13/24 14:45 Temperature 98.4 F Pulse Rate [Left P ulse Oximeter] 66 Respiratory Rate 16 Blood Pressure [Ri ght Arm] 91/53 L Pulse Oximetry 98 Oxygen Delivery Co thod Room Air
[2024-12-13 19:52] VITALS: BP 84/53; PULSE 63; RESP 16; TEMP 36.4; O2SAT 100
[2024-12-13] MEDS: ZONISAMIDE PO (20:35)
[2024-12-13 21:10] VITALS: PULSE 63; RESP 16
--- NOTE | 2024-12-14 06:05 | PC.NURSE ---
End of shift: Pt pleasant, alert and oriented. 1:1 with nurse throughout shift. VSS. Care plan followed; pt up walking with staff, watched some television, had a snack then went to bed around 2100. Pt stated some stomach pain around 0, assessment complete, temp normal, warm blanket provided as compress and pt stated improvement. Pt continent, no BM. Pt in bed, appears to be resting, call light within reach. ? ?
[2024-12-14 09:16] VITALS: BP 144/92; PULSE 71; RESP 16; TEMP 37.1; O2SAT 95
[2024-12-14] MEDS: PAROXETINE 12.5 MG PO (09:25)
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
--- NOTE | 2024-12-14 10:43 | PC.SOCIAL ---
Addendum entered by OTIS Croft 12/14/24 16:21: Received call back from [facility] requesting referral packet be faxed to [facility]. Packets were faxed to numbers provided. Original Note: Discharge planning: Per MD order for in-pt psych placement, called [facility] [phone] and requested they look for placement today. Confirmed with Bette at [facility] they had also looked for placement yesterday. Updated [facility] with current location of pt and contact phone numbers for hospital unit. plaster and stucco worker to follow up as needed.
[2024-12-14 15:00] VITALS: BP 101/64; PULSE 67; RESP 16; TEMP 36.3; O2SAT 99
--- NOTE | 2024-12-14 15:21 | PC.NURSE ---
End of Shift: Pt. has been pleasant and cooperative throughout shift - actively engaging in ADLs, taking walks in the hallway, playing cards and coloring.
--- NOTE | 2024-12-14 17:28 | P.DS_ITS ---
DS: Providers Provider Time Seen by Provider: 16:30 Date Seen: 12/14/24 Date of admission: 12/14/24 09:25 Primary care physician: Not a Local Provider Admitting Clinician: Patrizia Xie MD Consults: 12/12/24 16:58 Consult to Ekg/Ecg Technician [CONS] Routine Comment: Reason for Consult:: Discharge Planning Needs Social Service Consult 12/12/24 19:47 Consult to Telehealth Mental Assessment [CONS] Urgent Comment: Consulting Provider: [facility] Attending Physician on discharge: Patrizia Xie MD Date of Discharge: 12/14/24 DS: Diagnosis Discharge Diagnosis (1) Suicidal thoughts: Status: Acute Problem details: - 12/12/24 ER doc's note refers to EMS or police reporting that she made comments about wanting to , apparently by jumping in a [place]. This occurred while she was having an angry outburst. Upon arrival to the ER and later the medical floor, denied thoughts of suicide or self harm. After family visit, now endorses thoughts of suicidal ideation on and off since May and would not contract for safety. Tele-mental health involved in care - mood improved since admission, still has had suicidal thoughts - [facility] has accepted patient today 12/14/24; father/legal guardian is in agreement with this plan; transferring via BLS. (2) Outbursts of anger: Status: Acute Problem details: - Only seen once here, associated with family visit on the evening of 12/12/24. Has otherwise been cooperative, calm, pleasant. (3) Epilepsy: Status: Chronic Problem details: - on Zonisamide, follows with Neurology (4) Depression with anxiety: Status: Chronic Problem details: - follows with [facility]iat[facility] and counselor at [employer]. 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 - It appears that her emotional control is that of approximately a 7 year old. Unable to read. Able to do ADLs independently. Uses electronic devices independently. 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 Per the ER docs note, she had been at a [employer]'s with her family when she had an angry outburst and was trying to run away or run home. Her father called 911 and the patient ran away from the police. When the caught her she was aggressive with them and tried to hit and kick. She was placed in restraints by EMS and brought to the ER. In the ER she was given a dose of oral Zyprexa, was taken out of the restraints and was nonviolent with the staff. She remained cooperative and stated that she was feeling fine. She had a mental health assessment yesterday. Overnight calls to various hospitals with psychiatric bed availability were unsuccessful. Discussions were had overnight with the patient's father, who is her emergency guardian, and he was concerned that she was too labile and violent when she is upset for her to return to live with either him or her mother. There are 2 [facility] social workers who have been recently involved with this patient and have been working with the [facility] and [facility] to arrange a [facility] for her. When I saw Vivian to admit her, she was calm, cooperative, and smiling. I asked her why she was here and she said she got into an argument with her family and the police were called and she tried to kick them. She was giggling as she spoke about it. She initially denied any suicidal thoughts and said that she would not harm herself or anyone else while she was here. She was very excited because her father told her he would be back around dinnertime. Her father, mother, and brother came later and she became very agitated. Her mother said that when she went in the room, Vivian became agitated started scratching and biting her own arms. As Vivian's family was leaving, she through the pitcher of water at the wall causing it to leak onto the floor. She then sat in her bed in the position with her head buried in her arms. I sat with her for a while noting that she must be having some big feelings and asked her if she wanted to share them with me. She did not talk for a long time, but then started to talk with me as I spoke with her about other things, such as her sonic the hedgehog stuffed animal that was next to her. We talked about happy things for a while and she did very well with that. I then asked her about her behavior and she said that she promised she would not hurt me or my nursing staff, but she could not promise that she would not hurt herself or the police. She said that she has felt like killing herself since May when she broke up with her boyfriend. She did not have a specific plan at this time. I spoke with her dad over the phone about this and he confirmed that he was aware that she expressed that she's felt suicidal since May. He was in agreement with another mental health assessment and transfer for inpatient psychiatric care if that is indicated. I also spoke with her father about recent behaviors and he noted that any time his fiancee would buy a present for Vivian, even if it was an expensive 1 such as a tablet, Vivian would immediately destroy it. I reviewed records available in [employer] and found that she had some lab workup recently including on 12/11/24 Zonisamide, S level at [facility] was 32 (reference range is 10-40). Please see diagnoses above for further details. Time Spent with Patient Time attestation: Total time spent providing and/or coordinating discharge services: Exam Narrative: Exam Narrative: General: No acute distress. Awake alert oriented. Calm, smiling, cooperative, follows commands. Const: Vital Signs, click to edit/add: Vital Signs - 24 hr 12/13/24 19:52 12/13/24 21:10 12/14/24 09:16 Temperature 97.6 F 98.7 F Pulse Rate [Left P ulse Oximeter] 63 63 71 Respiratory Rate 16 16 16 Blood Pressure [Ri ght Arm] 84/53 L 144/92 H Pulse Oximetry 100 95 Oxygen Delivery Me thod Room Air Room Air 12/14/24 15:00 Temperature 97.4 F L Pulse Rate [Left P ulse Oximeter] 67 Respiratory Rate 16 Blood Pressure [Ri ght Arm] 101/64 Pulse Oximetry 99 Oxygen Delivery Me thod Room Air Discharge Plan Discharge Disposition: [facility] Discharge Location: [facility] Date of Admission: 12/14/24 09:25 Primary Care Provider: Provider,Not a Local Condition: Improved Discharge Orders: Transfer of Care to Other Hospital (ORDER); Ordered 12/14/24 Ordered By: Patrizia Xie
--- NOTE | 2024-12-14 17:39 | P.DS_ITS ---
Transfer Discharge Sum: Prov Provider Time Seen by Provider: 16:30 Date Seen: 12/14/24 Date of admission: 12/14/24 09:25 Primary care physician: Not a Local Provider Attending physician on admission: Patrizia Xie Consults: 12/12/24 16:58 Consult to Caustic Mixer [CONS] Routine Comment: Reason for Consult:: Discharge Planning Needs Social Service Consult 12/12/24 19:47 Consult to Telehealth Mental Assessment [CONS] Urgent Comment: Consulting Provider: [facility] Attending physician on discharge: Patrizia Xie Anticipated date of transfer: 12/14/24 Receiving physician/facility: [facility] DS: Diagnosis Discharge Diagnosis (1) Suicidal thoughts: Status: Acute Problem details: - 12/12/24 ER doc's note refers to EMS or police reporting that she made comments about wanting to , apparently by jumping in a [place]. This occurred while she was having an angry outburst. Upon arrival to the ER and later the medical floor, denied thoughts of suicide or self harm. After family visit, now endorses thoughts of suicidal ideation on and off since May and would not contract for safety. Tele-mental health involved in care - mood improved since admission, still has had suicidal thoughts - [facility] has accepted patient today 12/14/24; father/legal guardian is in agreement with this plan; transferring via BLS. (2) Outbursts of anger: Status: Acute Problem details: - Only seen once here, associated with family visit on the evening of 12/12/24. Has otherwise been cooperative, calm, pleasant. (3) Epilepsy: Status: Chronic Problem details: - on Zonisamide, follows with Neurology (4) Depression with anxiety: Status: Chronic Problem details: - follows with [facility] and counselor at [facility]. 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 - It appears that her emotional control is that of approximately a 7 year old. Unable to read. Able to do ADLs independently. Uses electronic devices independently. 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 Transfer Discharge Sum: Med Medications Active and Home Medications: Home Medications zonisamide 100 mg capsule 400 mg PO HS 09/20/24 [History Confirmed 12/12/24] paroxetine HCl 12.5 mg tablet,extended release 24 hr 12.5 mg PO DAILY 10/09/24 [History Confirmed 12/11/24] Active Medications Zonisamide 400 Mg ( (100 Mg X 4 Caps)) 0 each PO HS FAUSTO Last Admin: 12/13/24 20:35 Dose: 1 each Paroxetine Er 12.5 (Mg X 1 Tab) 0 each PO DAILY FAUSTO Last Admin: 12/14/24 09:25 Dose: 1 each Olanzapine (Olanzapine 5 Mg Tab.Rapdis) 10 mg PO ONCE PRN PRN Reason: Combative behavior Transfer Discharge Sum: Hosp Hospital Course Hospital course: Per my H&P: Vivian Holloway is a 19 year old female with 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 Per the ER docs note, she had been at a [employer] with her family when she had an angry outburst and was trying to run away or run home. Her father called 911 and the patient ran away from the police. When the caught her she was aggressive with them and tried to hit and kick. She was placed in restraints by EMS and brought to the ER. In the ER she was given a dose of oral Zyprexa, was taken out of the restraints and was nonviolent with the staff. She remained cooperative and stated that she was feeling fine. She had a mental health assessment yesterday. Overnight calls to various hospitals with psychiatric bed availability were unsuccessful. Discussions were had overnight with the patient's father, who is her emergency guardian, and he was concerned that she was too labile and violent when she is upset for her to return to live with either him or her mother. There are 2 [facility] social workers who have been recently involved with this patient and have been working with the [facility] and [facility] to arrange a [place] health care facility for her. When I saw Vivian to admit her, she was calm, cooperative, and smiling. I asked her why she was here and she said she got into an argument with her family and the police were called and she tried to kick them. She was giggling as she spoke about it. She initially denied any suicidal thoughts and said that she would not harm herself or anyone else while she was here. She was very excited because her father told her he would be back around dinnertime. Her father, mother, and brother came later and she became very agitated. Her mother said that when she went in the room, Vivian became agitated started scratching and biting her own arms. As Vivian's family was leaving, she through the pitcher of water at the wall causing it to leak onto the floor. She then sat in her bed in the position with her head buried in her arms. I sat with her for a while noting that she must be having some big feelings and asked her if she wanted to share them with me. She did not talk for a long time, but then started to talk with me as I spoke with her about other things, such as her sonic the hedgehog stuffed animal that was next to her. We talked about happy things for a while and she did very well with that. I then asked her about her behavior and she said that she promised she would not hurt me or my nursing staff, but she could not promise that she would not hurt herself or the police. She said that she has felt like killing herself since May when she broke up with her boyfriend. She did not have a specific plan at this time. I spoke with her dad over the phone about this and he confirmed that he was aware that she expressed that she's felt suicidal since May. He was in agreement with another mental health assessment and transfer for inpatient psychiatric care if that is indicated. I also spoke with her father about recent behaviors and he noted that any time his fiancee would buy a present for Vivian, even if it was an expensive 1 such as a tablet, Vivian would immediately destroy it. I reviewed records available in [facility] and found that she had some lab workup recently including on 12/11/24 Zonisamide, S level at [facility] was 32 (reference range is 10-40). Please see diagnoses above for further details. Time Spent with Patient Time attestation: Total time spent providing and/or coordinating transfer services: Today I spent 40 minutes seeing and discharging the patient, talking with the patient's father of the phone, reviewing [facility] and [facility] notes/diagnostics/labs, discussing the care plan with our care team that includes social work, PT/OT, pharmacy, RT, snf and documenting my impressions and plan in the medical record. Total time spent: Greater than 30 minutes Exam Narrative: Exam Narrative: General: No acute distress. Awake alert oriented. Calm, smiling, cooperative, follows commands. Const: Vital Signs, click to edit/add: Vital Signs - 24 hr 12/13/24 19:52 12/13/24 21:10 12/14/24 09:16 Temperature 97.6 F 98.7 F Pulse Rate [Left P ulse Oximeter] 63 63 71 Respiratory Rate 16 16 16 Blood Pressure [Ri ght Arm] 84/53 L 144/92 H Pulse Oximetry 100 95 Oxygen Delivery Me thod Room Air Room Air 12/14/24 15:00 Temperature 97.4 F L Pulse Rate [Left P ulse Oximeter] 67 Respiratory Rate 16 Blood Pressure [Ri ght Arm] 101/64 Pulse Oximetry 99 Oxygen Delivery Me thod Room Air Transfer Discharge Sum: Data Data Completed and Pending Completed studies during hospitalization: Short CBC 12/11/24 Range/Units 20:15 WBC 9.43 (4.50-11.00) K/uL Hgb 12.4 (12.0-16.0) gm/dL Hct 35.1 (33.0-51.0) % Plt Count 281 (140-440) K/uL BMP 12/11/24 20:15 Sodium 141 Potassium 4.1 Chloride 107 Carbon Dioxide 24 BUN 16 Creatinine 0.9 Glucose 97 Calcium 9.8 Liver Function 12/11/24 Range/Units 20:15 Total Bilirubin 0.4 (0.1-1.5) mg/dL AST 25 (12-35) U/L ALT 14 (4-35) U/L Alkaline Phosphatase 54 (40-150) U/L Albumin 4.7 (3.3-5.0) g/dL Transfer Discharge Sum: A/P Plan Functional capacity at transfer: independent ambulation Discharge Plan Discharge Disposition: [facility] Discharge Location: [facility] Date of Admission: 12/14/24 09:25 Attending Provider on Discharge: Patrizia Xie Primary Care Provider: Provider,Not a Local Condition: Improved Discharge Orders: Transfer of Care to Other Hospital (ORDER); Ordered 12/14/24 Ordered By: Patrizia Xie Oxygen: No Urinary Catheter: No Drips/Lines: None Services not available here: Inpatient Behavioral Health
--- NOTE | 2024-12-14 18:13 | PC.NURSE ---
Discharge Summary: Patient pleasant and cooperative. Actively participating in ADLs. Up waling in hallway with staff x1. Tolerating regular diet with no nausea. Patient transferred to [facility] at 1720 with all personal belongings, including 2 medications, by [facility]. Dad present at time of transfer. Nurse to nurse report given to [facility] [employer].
== END 2024-12-14 17:20 | DRG 880 ==
LOC: ED 12-12 14:04 → MEDSURG 12-12 14:46
PROVIDERS: Emergency Medicine; Admitting Provider Family Medicine; Emergency Provider Family Medicine; Visit Provider Orthopaedic Surgery
DX: R45.851 Suicidal ideations (principal); Q93.59 Other deletions of part of a chromosome; R62.59 Other lack of expected normal physiological development in childhood; F41.8 Other specified anxiety disorders; R45.4 Irritability and anger; F91.9 Conduct disorder, unspecified; F81.9 Developmental disorder of scholastic skills, unspecified; G40.909 Epilepsy, unspecified, not intractable, without status epilepticus
CPT/HCPCS: 36415; 80053; 80143; 80179; 80306; 81025; 82077; 84443; 85025; 87635; 99283; 99285; Q3014; G0378

== ENCOUNTER 2024-12-14 17:15 | Outpatient (CLI) | payer OTHER, BC, SELFPAY | END 2024-12-14 17:16 | disposition home or self-care (01) | LOC: AMB 12-15 11:35 | PROVIDERS: Visit Provider Family Medicine | DX: F29 Unspecified psychosis not due to a substance or known physiological condition (principal); F91.9 Conduct disorder, unspecified | CPT/HCPCS: A0425; A0428 ==

== ENCOUNTER 2025-02-26 17:47 | Outpatient (CLI) | payer OTHER, BC, SELFPAY | END 2025-02-26 17:48 | disposition home or self-care (01) | LOC: AMB 03-01 16:20 | PROVIDERS: Visit Provider Family Medicine | DX: F29 Unspecified psychosis not due to a substance or known physiological condition (principal) | CPT/HCPCS: A0425; A0429 ==

== ENCOUNTER 2025-02-26 18:05 | Emergency (ER) | payer OTHER, BC, SELFPAY ==
--- OUTSIDE RECORDS SUMMARY | 2025-01-11 07:43 | XMS_ITS | Encounter Summary ---
Author Organization [facility] Address [address] [place] [address] Care Team Providers Care Hog Pusher Name Role Phone Maryam Barker M.D. 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 [address] [place] [address] Phone: tel: fax: [facility] Referral ID Status Reason Start Date Expiration Date V isits Requested Visits Authorized [id number] Authorized 01/12/2025 04/14/2026 1 1 * Medication Prior Authorization - Authorized Specialty Diagnoses / Procedures Referred By John duarte Referred To Contact Dayanara Cardona P.A.-C. [address] [place] [phone] Phone: tel: fax: Referral ID Status Reason Start Date Expiration Date V isits Requested Visits Authorized [id number] Authorized 02/17/2025 02/17/2026 1 1 * Outpatient (Routine) - Authorized Specialty Diagnoses / Procedures Referred By John duarte Referred To Contact Neurology Dayanara Cardona P.A.-C. [address] [place] [phone] Phone: tel: fax: Alberto Holcomb M.D. 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 No 01/11/2025 Within the last year, have y ou been humiliated or emotionally abused in other ways by your partner or ex-partner? No Within the last year, have y ou been kicked, hit, slapped, or otherwise physically hurt by your partner or ex-partner? No 01/11/2025 Within the last year, have y ou been raped or forced to have any kind of sexual activity by your partner or ex-partner? No 01/11/2025 Hunger Vital Sign Answer Date Recorded Within the past 12 months, y ou worried that your food would run out before you got the money to buy more. Never true 01/12/20 25 Within the past 12 months, t he food you bought just didn't last and you didn't have money to get more. Never true 01/11/2025 PRAPARE - Transportation Answer Date Re corded In the past 12 months, has l ack of transportation kept you from medical appointments or from getting medications? No 12/28 In the past 12 months, has l ack of transportation kept you from meetings, work, or from getting things needed for daily living? No 01/11/2025 [facility] Utilities Answer Date Recorded In the past 12 months has th e electric, gas, oil, or water company threatened to shut off services in your home? No 01/11/2025 Depression Answer Date Recor ded PHQ-9 Total Score (max 27) 12 09/22 Housing Stability Answer Date Recorded What is your living situation today? I have a [facility] place to live 01/11/2025 Comments No Sex and Gender Information Value Date Recorded Sex Assigned at Female 07/22/2023 4:04 PM CDT Legal Sex Female 10:39 AM CDT Gender Identity Female 07/22/2023 4:04 PM CDT Sexual Orientation Straight 07/22/2023 4: 04 PM CDT documented as of this encounter Last Filed Vital Signs Vital Sign Reading Time Taken Comments Blood Pressure 99/62 01/12/2025 7:58 AM CDT Pulse 70 01/12/2025 7:58 AM CDT Temperature 36.6 C (97.9 F) 01/12/2025 7:58 AM CDT Respiratory Rate 15 01/12/2025 7:58 AM CDT Oxygen Saturation 98% 01/12/2025 7:58 AM CDT Inhaled Oxygen Concentration - - Weight 63.4 kg (139 lb 12.4 oz) 01/11/2025 7:58 AM CDT Height 165 cm (5' 4.96) 01/11/2025 7:58 AM CDT Body Mass Index 23.29 01/11/2025 7:58 AM CDT documented in this encounter Discharge Summaries * Dayanara Cardona, P.A.-C. - 01/12/2025 11:45 AM CDT DISCHARGE SUMMARY BRIEF OVERVIEW Hospital: [facility] Discharge Provider: Dustin Cash M.D. Primary Team: [facility] Neurology Epilepsy Monitoring - Adult Primary Care Providers: Maryam Barker M.D. 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 * DISCHARGE DISPOSITION Home or Self Care [1] ACTIVE ISSUES REQUIRING FOLLOW UP You were discharged from the [facility] Neurology Epilepsy Monitoring - Adult Service. Please identify this service name if you call with questions after hospitalization. OUTPATIENT FOLLOW UP Scheduled Appointments 02/24/2025 11:00 AM Alberto Holcomb M.D. Neurology For appointment details refer to your Patient Appointment Guide. 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 EEGelectrodes were applied, and continuous video EEG monitoring was initiated. Zonisamide was maintained during the admission. We recorded frequent brief generalized seizures and discharges. Please see the final EEG report for details. We recommend initiation of Clobazam 5 mg nightly for 5 days, then increase to 10 mg nightly thereafter. Consideration could be given to increasing the dose in the future. Zonisamide will be continuedand may be tapered later depending on your status at follow-up. An outpatient EEG will be arranged. Follow-up will be with Dr. Holcomb. CONSULTS ORDERED DURING THIS ADMISSION None CONDITION AT DISCHARGE stable Discharge instructions were provided to the patient and caregiver(s). Total time spent in discharge services today: 30 minutes. documented in this encounter Discharge Instructions * Attachments The following attachments cannot be sent through Care Everywhere. * Clobazam (By mouth) ([place]ese) documented in this encounter Medications at Time of Discharge cloBAZam (Onfi) 10 mg tablet Take 0.5-1 tablets (5-10 mg total) by mouth daily. Take 0.5 tablet (5 mg) nightly x 5 days, then increase to 1 tablet (10 mg) nightly thereafter 90 tablet 3 01/12/2025 PARoxetine (PaxiL CR) 12.5 mg 24 hr tabletIndication s:Depressive Disorder,Anxiety Take 1 tablet (12.5 mg total) by mouth daily. 90 tablet 3 09/22/2024 risperiDONE (RisperDAL) 0.5 mg tabletIndication s:Agitation Take 1 tablet (0.5 mg total) by mouth 2 (two) times a day. Consider it can increase seizures. If this is noticed, reduced dose to one tablet a day. 60 tablet 3 12/25/2024 zonisamide (Zonegran) 100 mg capsuleIndicatio ns:Seizure Absence (HCC) Take 5 capsules (500 mg total) by mouth daily. 11/17/2024 documented as of this encounter Progress Notes * Dustin Cash M.D. - 01/12/2025 10:23 AM CDT SUBJECTIVE Very frequent brief seizures, often with head marcela or eye roll. No falls. OBJECTIVE VITAL SIGNS Blood pressure 99/62, pulse 70, temperature 36.6 ??C, temperature source Oral, resp. rate 15, height 165 cm, weight 63.4 kg, last menstrual period 11/23/2024, SpO2 98%, not currently . EXAMINATION Neurologic: Awake and alert. Language is conversationally appropriate and limited related to cognitive status. Moves all extremities spontaneously and equally well. 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 Very frequent brief seizures, similar to prior routine EEG. Talking with mom falls are pretty rare.It does sound like we're recording what she is usually seeing. Will plan for a titration of clobazam 5 mg for 5 days then 10 mg at night thereafter. Follow up in 1-2 months with a routine EEG and visit with Dr. Holcomb. Reviewed with Dr. Holcomb today. No changes made to zonisamide. Discharge today. documented in this encounter H&P Notes * Dayanara Cardona PSowmyaAStacy - 01/11/2025 8:03 AM CDT Epilepsy Monitoring Unit Admission H&P SUBJECTIVE Referring Physician: Alberto Holcomb M.D. CHIEF COMPLAINT seizure classification HISTORY OF PRESENT ILLNESS Ms. Holloway is a 19 y.o. right handed female who presents to the Epilepsy Monitoring Unit on 01/11/2025 for seizure classification. The patient is accompanied by her mother. 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 Maternal great great grandmother and maternal aunt had seizures. Intellectual/speech delay, had IEP from kindergarten on up through school. No history of febrile seizure. No history of stroke or brain tumor. No history of significant head injury. No history of CCTV TECHNICIAN infection. Age of onset: diagnosed age 6 The patient was diagnosed with absence epilepsy at age 6 in [place]. In retrospect her mother reports seizures likely began around age 4. Out of 5 children in her immediate family, 3 have the same chromosome 15 microdeletion and seizures. Her seizures have remained the same since onset and are charac terized by loss of awareness, eyes rolling back, head marcela back and forth, which may lead to a fall.She was initially placed on ethosuximide and later Depakote was added. These were found to be ineffective and she was later trialed on Lamotrigine, which caused a rash. She is currently on [id number] mg nightly and denies side effects. Her mother reports seizure frequency has increased particularly over the last 1-2 years. She has had one generalized convulsive seizure which occurred in the hospital on 10/09/24. It is unclear in what context she was admitted to the hospital at that time. Shewas most recently admitted to the hospital 12/14/24-12/20/24 for suicidal ideation and an acute episode of agitation. Risperidone was initiated following this hospitalization and Paxil was continued. Her mother indicates her mood is currently stable on this regimen. EEG 10/26/24 revealed a mild degree of diffuse nonspecific slowing of the background and frequent toabundant activation of generalized spike and polyspike and wave discharges lasting 1-2.5 seconds without apparent clinical correlate, which would be consistent with a generalized epilepsy. Brain MRI 07/24/23 revealed mildly small hippocampi without overt signal abnormality or architectural distortion. Overall, the patient and family are hopeful for clarification of her seizures and a medication switch, thus present for EMU admission-seizure classification. Number of spells # 1 Event semiology: loses awareness, eyes roll back, head marcela back and forth which occasionally leads to a fall Event duration: 30 seconds - 1 minute Event frequency: multiple times per day Last episode was today Triggers: labile emotions- sadness/anger or happiness/laughter fits, spinning rides, running, biking # 2 Event semiology: GTC in hospital - unclear details Event duration: 2 minutes Event frequency: one occurrence Last episode was 10/09/24 Associated symptoms: loss of consciousness Current AEDs: Zonisamide 500 mg q HS Side effects: none Past AEDs: Ethosuximide - not effective Depakote - not effective Lamotrigine - rash History of status epilepticus: No Employed/disability: not employed, 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 Home Meds: Active Home Medications Medication Sig Taking PARoxetine (PaxiL CR) 12.5 mg 24 hr tablet Take 1 tablet (12.5 mg total) by mouth daily. Yes risperiDONE (RisperDAL) 0.5 mg tablet Take 1 tablet (0.5 mg total) by mouth 2 (two) times a day. Consider it can increase seizures. If this is noticed, reduced dose to one tablet a day. Yes zonisamide (Zonegran) 100 mg capsule Take 5 capsules (500 mg total) by mouth daily. Yes REVIEW OF SYSTEMS Pertinent items are noted in HPI; all other review of systems was negative OBJECTIVE VITAL SIGNS Temperature: [36.4 ??C] 36.4 ??C Resp Rate: [16] 16 Blood Pressure: (100)/(62) 100/62 SpO2: [97 %] 97 % Pulse Rate: [96] 96 PHYSICAL EXAM Alert and oriented x self, year; not day of the week, month, or location. Extraocular movements intact. No upper extremity pronator drift. No tremor noted. Follows commands x 4 with symmetric strength. Denies abnormal sensation. Denies gait instability outside of seizures. Cardiology: sinus rhythm, NM interval 166. Respiratory: breathing comfortably on room air, O2 sat 97%. DIAGNOSTICS Last Imaging Result MR BRAIN WITHOUT AND WITH IV CONTRAST 07/24/2023 07/24/2023 6:56 PM Impression 1. Mildly small hippocampi without overt signal abnormality or architectural distortion. 2. No malformation of cortical development. EEG 07/23/23 ([place]): 1) Frequent generalized atypical spike and wave discharges and innumerable brief generalized seizures, consistent with a generalized seizure disorder. 2) Syncope (neurocardiogenic) provoked by electrode tap verification, unrelated to the diagnosis ofepilepsy or seizures. Epileptiform abnormalities associated with eye closure raise the possibility of Jeavons syndrome. However, atypical features (delay from eye closure to emergence of discharges, lack of a photoparoxysmal response, atypical semiology not clearly demonstrating eyelid myoclonia on video) may be suggestive of an alternative generalized epilepsy syndrome. EEG 10/26/24 ([place]): mild degree of diffuse nonspecific slowing of the background and frequent to abundant activation of generalized spike and polyspike and wave discharges lasting 1-2.5 seconds without apparent clinical correlate, which would be consistent with a generalized epilepsy. 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 Holloway is being admitted to Epilepsy Monitoring Unit for seizure classification. PLAN The patient will not be sleep deprived Other provoking mechanisms used: consider biking The patient must wear a harness / or be supervised when ambulatory and has agreed with this plan. Home AED: Zonisamide 500 mg q HS EMU AED: same -recent labs/level WNL -Consider alternate antiseizure medication: clobazam, epidiolex, topiramate, cenobamate, perampanel -Mood lability: hydroxyzine prn agitation ordered RESCUE PLAN Give 10 mg IM Midazolam if 2 GTCs in 12 hrs or 3 GTCs in 24 hrs, or a GTC greater than 5 minutes, or a partial seizure greater than 10 minutes, always page on-call community health consultant or fellow For status epilepticus - always page on-call community health consultant or fellow; Lorazepam 2-4 mg IV, max 8 mg Status epilepticus care process models: [email or web address] Post Ictal Testing: Motor and Language Code Status: Full Code discussed with patient. Dayanara Cardona P.A.-C. 01/11/2025 Inpatient admission for EEG monitoring is necessary to ensure close monitoring due to the potentialrisks of seizures including status epilepticus, accidental injury, and SUDEP. The risk of medication withdrawal was discussed with patient, including seizure clusters and prolonged seizures which mayneed emergent treatment. documented in this encounter Nursing Notes * Fidelia Calle R.N. - 01/12/2025 1:06 PM CDT IV removed. AVS given. All questions answered. Patient and mother declined wheelchair escort. Electronically signed by: Fidelia Calle R.N. 01/12/25 1:07 PM CDT; * Fidelia Calle R.N. - 01/12/2025 12:58 PM CDT Shift Goals: Clinical Goals for the Shift: Patient will have a spell during shift Identify possible barriers to meeting goals/advancing plan of care: on meds End of Shift Summary: Goal Not Met. Patient is discharging today Problem: PAIN - ADULT Goal: PT VERBALIZES/DEMONSTRATES ADEQUATE COMFORT LEVEL OR BASELINE Outcome: Adequate for Discharge Problem: KNOWLEDGE DEFICIT Goal: Patient/family/caregiver demonstrates understanding of disease process, treatment plan, medications, and discharge instructions Outcome: Adequate for Discharge Problem: INFECTION - ADULT Goal: Absence of infection during hospitalization Outcome: Adequate for Discharge Problem: SKIN/TISSUE INTEGRITY Goal: Skin/Tissue integrity maintained or improved Outcome: Adequate for Discharge Goal: Oral and Nasal mucous membranes remain intact Outcome: Adequate for Discharge Problem: SAFETY ADULT Goal: Maintain a safe environment Outcome: Adequate for Discharge Problem: DISCHARGE PLANNING Goal: Patient discharge needs identified Outcome: Adequate for Discharge Problem: Risk for Compromised Skin Integrity-Other Ethanol Maintenance Mechanic(s) Goal: Risk for Compromised Skin Integrity-Other Ethanol Maintenance Mechanic(s) Outcome: Adequate for Discharge Problem: SAFETY ADULT - RISK FOR FALL AND OR FALL INJURY Goal: Patient remains free from fall/fall injury Outcome: Adequate for Discharge Problem: Risk for Compromised Skin Integrity-Cesar Activity Score 3 Goal: Achieve optimal activity to maintain or improve skin integrity. Outcome: Adequate for Discharge Electronically signed by: Fidelia Calle R.N. 01/12/25 1:06 PM CDT * Delfina Arriaga R.N. - 01/12/2025 5:18 AM CDT Shift Goals: Clinical Goals for the Shift: Patient will have a spell during shift Identify possible barriers to meeting goals/advancing plan of care: none End of Shift Summary: Problem: SAFETY ADULT Goal: Maintain a safe environment 01/12/2025 0518 by Delfina Arriaga RSowmyaN. Outcome: Progressing 01/12/2025 05 by Delfina Arriaga RFernando. Outcome: Progressing Problem: SKIN/TISSUE INTEGRITY Goal: Skin/Tissue integrity maintained or improved 01/12/202518 by Delfina Arriaga RSowmyaN. Outcome: Progressing 01/12/2025 05 by Delfina Arriaga RSowmyaN. Outcome: Progressing Goal: Oral and Nasal mucous membranes remain intact 01/12/2025 0518 by Delfina Arriaag RSowmyaN. Outcome: Progressing 01/12/2025 05 by Delfina Arriaga RSowmyaN. Outcome: Progressing No spells during shift. Goal not met. * Fidelia Calle R.N. - 01/11/2025 4:52 PM CDT Shift Goals: Clinical Goals for the Shift: Patient will have a spell during shift Identify possible barriers to meeting goals/advancing plan of care: On home meds End of Shift Summary: Goal Not Met. Patient did not have any spells during shift. She ambulated in the room multiple times to use the bathroom and used the stationary bike once. She refused bike the second time I asked at around 1600. Problem: KNOWLEDGE DEFICIT Goal: Patient/family/caregiver demonstrates understanding of disease process, treatment plan, medications, and discharge instructions Outcome: Progressing Problem: SKIN/TISSUE INTEGRITY Goal: Skin/Tissue integrity maintained or improved Outcome: Progressing Problem: SAFETY ADULT Goal: Maintain a safe environment Outcome: Progressing Electronically signed by: Fidelia Calle R.N. 01/11/25 4:53 PM CDT documented in this encounter Miscellaneous Notes * Hospital Course - Dayanara Cardona P.A.-C. - 01/11/2025 10:49 AM CDT The patient was admitted to the Epilepsy Monitoring Unit on 01/11/25 for seizure classification. EEGelectrodes were applied, and continuous video EEG monitoring was initiated. Zonisamide was maintained during the admission. We recorded frequent brief generalized seizures and discharges. Please see the final EEG report for details. We recommend initiation of Clobazam 5 mg nightly for 5 days, then increase to 10 mg nightly thereafter. Consideration could be given to increasing the dose in the future. Zonisamide will be continuedand may be tapered later depending on your status at follow-up. An outpatient EEG will be arranged. Follow-up will be with Dr. Holcomb. 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) Expected: 02/11/2025, Expires: 04/13/2026 Scheduled Referrals Name Type Priority Associated Diagnoses Orde r Schedule Neurology office visit (clinic) Outpatient Referral Routine Expected: 02/10/2025, Expires: 04/12/2026 documented as of this encounter Procedures Procedure Name Priority Date/Time Associated Diagnosis Comments EPILEPSY MONITORING UNIT (EMU) ADMISSION Routine 01/12/2025 12:12 PM CDT 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 Background: The awake recording revealed a posterior dominant rhythm of 9 Hz, with frequent diffuse theta slowing 6-7 Hz, and occasional bifrontal delta slowing 2-4 Hz. The sleep recording contained N2 sleep transients including V waves, K complexes, and sleep spindles. Interictal discharges / Clinical events / Seizures: During the monitoring session, the patient had abundant generalized atypical spike and wave, generalized poly-spike and wave, generalized single spike and wave, and generalized sharp waves. The poly-spike and wave frequency ranged from ~2.8 to 4.0 Hz. The duration of these discharges ranged from 1 to 6 seconds. During wakefulness, these discharges occurred 1 to 4 times per minute, and during sleep there was significant activation during N2 sleep, up to 5 to 10 times per minute. During wakefulness, nearly all the longer discharges (from ~3 seconds and above) were associated with a subtle clinical correlate, therefore representing an innumerable amount of seizures throughout the record. The most common clinical correlates were blinking, gaze deviation upward or downward, head jerk forward or backward, and behavioral arrest (e.g. pause in playing with her mother, pause in using hands for a fine motor task). The clinical manifestations lasted 1 to 3 seconds. 1 Push Button event was recorded for one these typical seizures: corresponding to a brief behavioral arrest lasting ~3 seconds, which correlated to a 6-second discharge of poly-spikes and [id number] at 3.8 Hz. INTERPRETATION AND CLINICAL CORRELATE This computer-assisted prolonged video EEG recording demonstrated the following: Abundant generalized epileptiform discharges, predominantly in the form of generalized atypical spike and wave and poly-spikes with a frequency of 2.8 to 4.0 Hz. These occurred in runs as long as 8 seconds, and up to 4 times per minute during wakefulness and 10 times per minute during sleep. The longer discharges were associated with a clinical correlate during wakefulness, including blinking, gaze deviation, head jerk, and behavioral arrest; thus representing an innumerable amount of electroclinical seizures throughout the record. 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 Of note, paroxysmal fast activity or electrodecrement were not seen. Moderate to severe diffuse slowing of the background with anterior predominance. This is consistent with a diffuse cerebral dysfunction. The EKG was unremarkable. Dr. Cash reviewed this study with Dr. Alysa Lancaster and agrees with this interpretation. Dayanara Cardona P.A.-C. NEUROLOGY ORDERABLES Fi nal Result MMODAL NA * Epilepsy monitoring unit (EMU) admission (01/12/2025 12:12 PM CDT) Narrative MMODAL - 01/13/2025 7:16 AM CDT FINAL EMU EEG REPORT INTERPRETATION AND CLINICAL CORRELATE This computer-assisted prolonged video EEG recording demonstrated the following: Abundant generalized epileptiform discharges, predominantly in the form of generalized atypical spike and wave and poly-spikes with a frequency of 2.8 to 4.0 Hz. These occurred in runs as long as 8 seconds, and up to 4 times per minute during wakefulness and 10 times per minute during sleep. The longer discharges were associated with a clinical correlate during wakefulness, both motor and non-motor observable manifestations, including blinking, gaze deviation, head jerk, and behavioral arrest; thus representing an innumerable amount of electroclinical seizures throughout the record. 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 Of note, paroxysmal fast activity or electrodecrement were not seen. Moderate to severe diffuse slowing of the background with anterior predominance. This is consistent with a diffuse cerebral dysfunction. Classification: SPECIAL STUDY: Computer-assisted prolonged video EEG. Dysrhythmia grade 3, generalized (epileptiform discharges and seizures). Clinical events captured. EKG channel. REPORT: Computer-assisted prolonged video EEG monitoring was performed in the period indicated above. Background: The awake recording revealed a posterior dominant rhythm of 9 Hz, with frequent diffuse theta slowing 6-7 Hz, and occasional bifrontal delta slowing 2-4 Hz. The sleep recording contained N2 sleep transients including V waves, K complexes, and sleep spindles. Interictal discharges / Clinical events / Seizures: During the monitoring session, the patient had abundant generalized atypical spike and wave, generalized poly-spike and wave, generalized single spike and wave, and generalized sharp waves. The poly-spike and wave frequency ranged from ~2.8 to 4.0 Hz. The duration of these discharges ranged from 1 to 8 seconds. During wakefulness, these discharges occurred 1 to 4 times per minute, and during sleep there was significant activation during N2 sleep, up to 5 to 10 times per minute. During wakefulness, nearly all the longer discharges (from ~3 seconds and above) were associated with a subtle clinical correlate, therefore representing an innumerable amount of seizures throughout the record. The most common clinical correlates were blinking, gaze deviation upward or downward, head jerk forward or backward, and behavioral arrest (e.g. pause in coloring, pause in drawing/writing, pause in exercising bike, pause in watching TV). The clinical manifestations lasted 1 to 3 seconds. The EKG was unremarkable. Dr. Cash reviewed this study with Dr. Alysa Lancaster and agrees with this interpretation. Alberto Holcomb M.D. NEUROLOGY ORDERABLES Suzanne bryant Result MMODAL NA * Video EEG monitoring (01/12/2025 5:00 AM CDT) Narrative MMODAL - 01/13/2025 7:16 AM CDT PROLONGED EEG MONITORING DAILY REPORT Day #1 REPORT: Computer-assisted prolonged video EEG monitoring since the beginning of the recording showed the following. Background: The awake recording revealed a posterior dominant rhythm of 9 Hz, with frequent diffuse theta slowing 6-7 Hz, and occasional bifrontal delta slowing 2-4 Hz. The sleep recording contained N2 sleep transients including V waves, K complexes, and sleep spindles. Interictal discharges / Clinical events / Seizures: During the monitoring session, the patient had abundant generalized atypical spike and wave, generalized poly-spike and wave, generalized single spike and wave, and generalized sharp waves. The poly-spike and wave frequency ranged from ~2.8 to 4.0 Hz. The duration of these discharges ranged from 1 to 8 seconds. During wakefulness, these discharges occurred 1 to 4 times per minute, and during sleep there was significant activation during N2 sleep, up to 5 to 10 times per minute. During wakefulness, nearly all the longer discharges (from ~3 seconds and above) were associated with a subtle clinical correlate, therefore representing an innumerable amount of seizures throughout the record. The most common clinical correlates were blinking, gaze deviation upward or downward, head jerk forward or backward, and behavioral arrest (e.g. pause in coloring, pause in drawing/writing, pause in exercising bike, pause in watching TV). The clinical manifestations lasted 1 to 3 seconds. INTERPRETATION AND CLINICAL CORRELATE This computer-assisted prolonged video EEG recording demonstrated the following: Abundant generalized epileptiform discharges, predominantly in the form of generalized atypical spike and wave and poly-spikes with a frequency of 2.8 to 4.0 Hz. These occurred in runs as long as 8 seconds, and up to 4 times per minute during wakefulness and 10 times per minute during sleep. The longer discharges were associated with a clinical correlate during wakefulness, including blinking, gaze deviation, head jerk, and behavioral arrest; thus representing an innumerable amount of electroclinical seizures throughout the record. 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 Of note, paroxysmal fast activity or electrodecrement were not seen. Moderate to severe diffuse slowing of the background with anterior predominance. This is consistent with a diffuse cerebral dysfunction. The EKG was unremarkable. Dr. Cash reviewed this study with Dr. Alysa Lancaster and agrees with this interpretation. us Dayanara Cardona P.A.-C. NEUROLOGY ORDERABLES Fi nal Result Performing Organization Address [facility] Co de Phone Number MMODAL NA * ECG 12 Lead (01/11/2025 9:46 AM CDT) Ventricular Rate ECG/Min 69 BPM MUSE NM Interval 166 ms MUSE QRSD Interval 86 ms MUSE QT Interval 380 ms MUSE QTC Interval 407 ms MUSE P [place] 68 degrees MUSE R [place] 69 degrees MUSE T Wave [place] 78 degrees MUSE 01/11/2025 9:46 AM CDT 01/11/2025 9:49 AM CDT Impressions MUSE - 01/11/2025 9:49 AM CDT Sinus rhythm with sinus arrhythmia Otherwise normal ECG No previous ECGs available Reviewed by AMNA Winston Narrative Procedure Note Pako Mansfield M.D. - 01/11/2025 IMPRESSION: Sinus rhythm with sinus arrhythmia Otherwise normal ECG No previous ECGs available Reviewed by AMNA Winston Dayanara Cardona P.A.-C. 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) Drop Attack documented in this encounter Administered Medications Inactive Administered Medications - up to 3 most recent administrations Medication Order MAR Action Action Date Dose Rate Site acetaminophen suppository 650 mg (TylenoL) 650 mg, rectal, Every 4 hours PRN, mild pain or score 1-3 of 10, moderate pain or score 4-6 of 10, Administer for pain greater than comfort goal or oral temperature greater than 38 degrees Celsius., Starting on Sat01/11/25 at 0907, Per patient preference acetaminophen tablet 650 mg (TylenoL) 650 mg, oral, Every 4 hours PRN, mild pain or score 1-3 of 10, moderate pain or score 4-6 of 10, Administer for pain greater than comfort goal or oral temperature greater than 38 degrees Celsius., Starting on Sat01/11/25 at 0907, Per patient preference acetaminophen tablet 650 mg (TylenoL) 650 mg, gastric tube, Every 4 hours PRN, mild pain or score 1-3 of 10, moderate pain or score 4-6 of 10, Administer for pain greater than comfort goal or oral temperature greater than 38 degrees Celsius., Starting on Sat01/11/25 at 0907, Per patient preference enoxaparin injection 40 mg (Lovenox) 40 mg, subcutaneous, Every 24 hours scheduled, First dose on Sat01/12/25 at 0900 Given 01/12/2025 8:05 AM CDT 40 mg Left Upper Arm (Back) hydrOXYzine tablet 25 mg (Atarax) 25 mg, oral, Every 6 hours PRN, anxiety, Starting on Sat01/11/25 at 0910 ibuprofen tablet 400 mg 400 mg, oral, Every 6 hours PRN, mild pain or score 1-3 of 10, moderate pain or score 4-6 of 10, Starting on Sat01/11/25 at 0907, Per patient preference midazolam (PF) injection 10 mg (Versed) 10 mg, intramuscular, Every 12 hours PRN, 2 GTC seizures within 12 hours or GTC seizure greater than 5 minutes or partial seizures greater than 10 minutes, Starting on Sat01/11/25 at 1231, Please notify Service AFTER administration. (Administer only if no iv access) PARoxetine tablet 10 mg (PaxiL) 10 mg, oral, Daily, First dose on Sat01/12/25 at 0900, PARoxetine 10 mg oral daily was interchanged for PARoxetine CR 12.5 mg oral daily Given 01/12/2025 8:05 AM CDT 10 mg risperiDONE tablet 0.5 mg (RisperDAL) 0.5 mg, oral, 2 times daily, First dose on Sat01/11/25 at 2100 Given 01/12/2025 8:05 AM CDT 0.5 mg Given 01/11/2025 8:04 PM CDT 0.5 mg sodium chloride 0.9 % injection 3 mL 3 mL, intravenous, Every 12 hours scheduled, First dose on Sat01/11/25 at 2100, Peripheral Intravenous Catheter and Rapid Infusion Catheter, when no infusion to maintain patency Given 01/12/2025 8: 05 AM CDT 3 mL Given 01/11/2025 8:06 PM CDT 3 mL zonisamide capsule 500 mg (Zonegran) 500 mg, oral, Daily at bedtime, First dose on Sat01/11/25 at 2100, Swallow whole. Do NOT crush, chew or open capsule. Given 01/11/2025 8:04 PM CDT 500 mg documented in this encounter Active and Recently Administered Medications Times are shown in CDT. Scheduled Medication Order 01/10/2025 01/11/2025 01/12/2025 enoxaparin injection 40 mg (Lovenox) 40 mg, subcutaneous, Every 24 hours scheduled, First dose on Sat01/12/25 at 0900 08 (Given - Provid er: Fidelia Calle R.N.) PARoxetine tablet 10 mg (PaxiL) 10 mg, oral, Daily, First dose on Sat01/12/25 at 0900, PARoxetine 10 mg oral daily was interchanged for PARoxetine CR 12.5 mg oral daily 804 (Given - Provid er: Fidelia Calle R.N.) risperiDONE tablet 0.5 mg (RisperDAL) 0.5 mg, oral, 2 times daily, First dose on Sat01/11/25 at 2100 2003 (Given - Provider: Delfina Arriaga R.N.) 08 (Given - Provider: Fidelia Calle R.N.) sodium chloride 0.9 % injection 3 mL 3 mL, intravenous, Every 12 hours scheduled, First dose on Sat01/11/25 at 2100, Peripheral Intravenous Catheter and Rapid Infusion Catheter, when no infusion to maintain patency 2005 (Given - Provider: Delfina Arriaga R.N.) 08 (Given - Provider: Fidelia Calle R.N.) zonisamide capsule 500 mg (Zonegran) 500 mg, oral, Daily at bedtime, First dose on Sat01/11/25 at 2100, Swallow whole. Do NOT crush, chew or open capsule. 2003 (Given - Provider: Delfina Arriaga R.N.) PRN Medication Order 01/10/2025 01/11/2025 01/12/2025 acetaminophen suppository 650 mg (TylenoL)(Linked Group 1) 650 mg, rectal, Every 4 hours PRN, mild pain or score 1-3 of 10, moderate pain or score 4-6 of 10, Administer for pain greater than comfort goal or oral temperature greater than 38 degrees Celsius., Starting on Sat01/11/25 at 0907, Per patient preference acetaminophen tablet 650 mg (TylenoL)(Linked Group 1) 650 mg, oral, Every 4 hours PRN, mild pain or score 1-3 of 10, moderate pain or score 4-6 of 10, Administer for pain greater than comfort goal or oral temperature greater than 38 degrees Celsius., Starting on Sat01/11/25 at 0907, Per patient preference acetaminophen tablet 650 mg (TylenoL)(Linked Group 1) 650 mg, gastric tube, Every 4 hours PRN, mild pain or score 1-3 of 10, moderate pain or score 4-6 of 10, Administer for pain greater than comfort goal or oral temperature greater than 38 degrees Celsius., Starting on Sat01/11/25 at 0907, Per patient preference calcium carbonate chewable tablet 400 mg of calcium (Tums) 400 mg of calcium, oral, Every 4 hours PRN, indigestion, Starting on Sat01/11/25 at 0907, Doses listed are in mg of elemental calcium. Take with food. 500 mg calcium carbonate contains 200 mg of elemental calcium. diphenhydrAMINE capsule 25 mg (BenadryL) 25 mg, oral, Every 6 hours PRN, itching, Starting on Sat01/11/25 at 0907, May repeat x 1 dosing interval. hydrOXYzine tablet 25 mg (Atarax) 25 mg, oral, Every 6 hours PRN, anxiety, Starting on Sat01/11/25 at 0910 ibuprofen tablet 400 mg(Linked Group 1) 400 mg, oral, Every 6 hours PRN, mild pain or score 1-3 of 10, moderate pain or score 4-6 of 10, Starting on Sat01/11/25 at 0907, Per patient preference midazolam (PF) injection 10 mg (Versed) 10 mg, intramuscular, Every 12 hours PRN, 2 GTC seizures within 12 hours or GTC seizure greater than 5 minutes or partial seizures greater than 10 minutes, Starting on Sat01/11/25 at 1231, Please notify Service AFTER administration. (Administer only if no iv access) ondansetron ODT disintegrating tablet 4 mg (Zofran-ODT) 4 mg, oral, Every 6 hours PRN, nausea, vomiting, Starting on Sat01/11/25 at 0907, When splitting ODT at bedside, handle with gloves and a pill splitter to prevent moisture contact. sennosides-docusate sodium 8.6-50 mg per tablet 2 tablet (Senokot-S) 2 tablet, oral, Bedtime PRN, constipation, Starting on Sat01/11/25 at 0907 sodium chloride 0.9 % injection 10 mL 10 mL, intravenous, As needed, line care, Starting on Sat01/11/25 at 0907, Peripheral Intravenous Catheter and Rapid Infusion Catheter, prior to blood sampling, post blood transfusion or post blood sampling sodium chloride 0.9 % injection 3 mL 3 mL, intravenous, As needed, line care, Starting on Sat01/11/25 at 0907, Prior to and following infusion and between multiple consecutive infusions: sodium chloride 0.9 % injection Linked Groups Order Group 1: acetaminophen tablet 650 mg (TylenoL)Jump to med 650 mg, oral, Every 4 hours PRN, mild pain or score 1-3 of 10, moderate pain or score 4-6 of 10, Administer for pain greater than comfort goal or oral temperature greater than 38 degrees Celsius., Starting on Sat01/11/25 at 0907, Per patient preference Or acetaminophen tablet 650 mg (TylenoL)Jump to med 650 mg, gastric tube, Every 4 hours PRN, mild pain or score 1-3 of 10, moderate pain or score 4-6 of 10, Administer for pain greater than comfort goal or oral temperature greater than 38 degrees Celsius., Starting on Sat01/11/25 at 0907, Per patient preference Or acetaminophen suppository 650 mg (TylenoL)Jump to med 650 mg, rectal, Every 4 hours PRN, mild pain or score 1-3 of 10, moderate pain or score 4-6 of 10, Administer for pain greater than comfort goal or oral temperature greater than 38 degrees Celsius., Starting on Sat01/11/25 at 0907, Per patient preference Or ibuprofen tablet 400 mgJump to med 400 mg, oral, Every 6 hours PRN, mild pain or score 1-3 of 10, moderate pain or score 4-6 of 10, Starting on Sat01/11/25 at 0907, Per patient preference documented in this encounter Additional Health Concerns Assessment Noted Time PHQ-9 Depression Total Score: 12 025 11:19 AM CDT documented as of this encounter Care Teams Hog Pusher Relationship Specialty Start Date End Date Maryam Barker M.D. [address] [phone] PCP - General Family Medicine 01/29/23 documented as of this encounter
--- OUTSIDE RECORDS SUMMARY | 2025-02-14 12:30 | XMS_ITS | Encounter Summary ---
Author Organization [facility] Address [address] [place] [address] Care Team Providers Care Zoogler Name Role Phone Maryam Barker M.D. Primary Care Provider Reason for Visit * Reason Comments Mental Health Problem Encounter Details Date Type Department Care Team (Late st Contact Info) Description 02/14/2025 12:30 PM CDT - 02/14/2025 11:59 PM CDT Emergency [facility] [address] [place] [phone] Discharge Disposition: Home or Self Care Social [...] things needed for daily living? No 01/11/2025 [facility] Utilities Answer Date Recorded In the past 12 months has th e [employer], gas, oil, or water [employer] threatened to shut off services in your home? No 01/11/2025 Depression Answer Date Recor ded PHQ-9 Total Score (max 27) 12 09/22 Housing Stability Answer Date Recorded What is your living situation today? I have a [facility] place to live 01/11/2025 Comments No Sex [...] documented as of this encounter Care Teams Zoogler Relationship Specialty Start Date End Date Maryam Barker M.D. [address] [phone] PCP - General Family Medicine 01/29/23 documented as of this encounter
[2025-02-26 18:08] VITALS: BP 104/76; PULSE 73; RESP 18; TEMP 36.6; O2SAT 100
--- OUTSIDE RECORDS SUMMARY | 2025-02-26 18:08 | XMS_ITS | Clinical Summary ---
Author Organization [facility] Address [address] [place] [address] Care Team Providers Care Retreader Name Role Phone Maryam Barker M.D. Primary Care Provider Source Comments Patient records contain information from all sites at [facility]. For routine questions regarding patient records, call [phone] during business hours, M-F 8:00 AM - 5:00 PM Central Time. Record requests for emergency care only can be directed to [phone] at any time.[facility] Allergies Active Allergy Reactions Criticality Noted Date Comments Lamotrigine Rash Medium 11/23/2018 Medications * This document contains information received from the source organization and may not represent a complete record from that organization. PARoxetine (PaxiL CR) 12.5 mg 24 hr tabletIndicatio ns:Depressive Disorder,Anxiet y Take 1 tablet (12.5 mg total) by mouth daily. 90 tablet 3 5 09/23/19 26 Active zonisamide (Zonegran) 100 mg capsuleIndicati ons:Seizure Absence (HCC) Take 5 capsules (500 mg total) by mouth daily. 5 Active risperiDONE (RisperDAL) 0.5 mg tabletIndicatio ns:Agitation Take 1 tablet (0.5 mg total) by mouth 2 (two) times a day. Consider it can increase seizures. If this is noticed, reduced dose to one tablet a day. 60 tablet 3 5 Active cloBAZam (Onfi) 10 mg tablet Take 0.5-1 tablets (5-10 mg total) by mouth daily. 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 Risperidone poses low seizure risk. Monitoring and potential treatment adjustments are necessary. - Continue ethosuximide for seizure management. - Monitor seizure frequency and triggers. - Consider follow-up with neurologist if seizures persist or worsen. 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 - Continue therapy sessions every Saturday. - Ensure close supervision by family members. Seizure Absence 04/10/2023 Assessment & Plan (09/03/2024 [...] organization. Date Type Department Care Team Description 02/16/2025 Orders Only Department of Neurology in [place], [place] [address] [place] [address] Alberto Holcomb M.D. 02/14/2025 12:30 PM CDT - 02/14/2025 11:59 PM CDT Emergency [facility] [address] [place] [phone] Discharge Disposition: Home or Self Care 01/19/2025 Clinical Communication Department of Family [facility], in [place], [place] [address] [phone] Maryam Barker M.D. [facility]) 01/11/2025 7:43 AM CDT - 01/12/2025 1:08 PM CDT Hospital Encounter [facility], [facility], Second floor [address] [place] [address] Dustin Cash M.D. 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 Order Request 12/10/2024 9:00 AM CDT - 12/10/2024 11:59 PM CDT Hospital Encounter Department of Laboratory Medicine in [place], [place] [address] [place] [phone] Jie Mcintyre M.D. Seizure Absence (HCC); Development Delay Intellectual Discharge Disposition: Home or Self Care 11/29/2024 2:37 PM CDT - 11/29/2024 11:59 PM CDT Emergency [facility] [address] [place] [address] Discharge Disposition: Home or Self Care 11/27/2024 Results Follow-Up Department of Medical Genetics in [place], [place] [address] [place] [address] Tommy Reis M.D. [place] Kidneys Bilateral with Bladder from Last 3 Months Immunizations Immunization Administration [...] Family History Medical History Relation Name Comments Epilepsy/ seizures Brother 1 Generaliz ed Tonic-Clonic, random in frequency ADD / ADHD Brother 3 kirus Asthma Brother 3 kirus Epilepsy/ seizures Brother 3 kirus ADD / ADHD Brother 4 druze Asthma Brother 4 druze Bipolar disorder Father 1 Foreign Suicide attempts Father 2 elijah Rheumatoid arthritis (RA) Father's Sister Autism spectrum disorder Maternal Cousin 1 Heart Maternal Grandfather Pancreatic cancer Maternal Grandmother 1 Stage 4 Depression Maternal Grandmother 2 forrest Thyroid disease Maternal Grandmother 2 forrest ADD / ADHD Mother Sabine Asthma Mother Sabine Depression Mother Sabine Learning disabilities Mother Sabine out gr ew learning disorder before graduating in 03 Thyroid disease Mother Sabine Rheumatoid arthritis (RA) Mother's Sister 1 Rheumatoid arthritis (RA) Mother's Sister 2 Thyroid disease Mother's Sister 3 aisha Bipolar disorder Paternal Grandfather COPD Paternal Grandmother Epilepsy/ seizures Sister 1 Ally Absence a t first, now adolescent seizure disorder Depression Sister 2 jammie Epilepsy/ seizures Sister 2 jammie Relation Name Status Comments Brother 1 Alive Brother 2 Alive Brother 3 kirus Alive Brother 4 druze Alive Father 1 Foreign Father 2 elijah Alive Addiction Father's Sister Alive Half-Brother Alive Maternal Cousin 1 Alive Maternal Cousin 2 Alive A/W Maternal Cousin 3 Alive Maternal Grandfather Alive No curr ent contact Maternal Grandmother 1 Maternal Grandmother 2 forrest Alive Mother Sabine Alive IEP growing up Mother's Sister 1 Alive Mother's Sister 2 [...] Passive Smoke Exposure: Current Smokeless Tobacco: Never Tobacco Cessation:Counseling Given: Not [...] things needed for daily living? No 01/11/2025 [facility] Utilities Answer Date Recorded In the past 12 months has th [employer] electric, gas, oil, or water company threatened to shut off services in your home? No 01/11/2025 Depression Answer Date Recor ded PHQ-9 Total Score (max 27) 12 09/22 Housing Stability Answer Date Recorded What is your living situation today? I have a [facility] place to live 01/11/2025 Comments No [...] Mass Index 23.29 01/11/2025 7:58 AM CDT Plan of Treatment Health Maintenance [...] 10/13/2021 18 year Well Child Check-Up 10/14/2023 19 year Well Child Check-Up 10/13/2024 Well Child Check-Up ([facility]) 10/13/2024 COVID-19 Vaccine ( season) 2024 Influenza Vaccine (#1) 2024 6, 03/12/2012, 04/07/2010, Additional history exists Glucose Test for Med Monitoring 12/10/2025 12/10/2024, 07/23/2023, 07/08/2023 Vision Screening during Well Child Visit 04/10/2027 [...] Procedure Name Priority Date/Time Associated Diagnosis Comments VIDEO EEG MONITORING Routine 01/12/2025 12:12 PM CDT EPILEPSY MONITORING UNIT (EMU) ADMISSION Routine 01/12/2025 12:12 PM CDT 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 (HCC) Drop Attack VIDEO EEG MONITORING Routine 01/12/2025 5:00 AM CDT ECG Routine 01/11/2025 9:46 AM CDT COMPREHENSIVE METABOLIC PANEL, S/P Routine 12/10/2024 9:10 AM CDT Seizure Absence (HCC) Development Delay Intellectual CBC WITH DIFFERENTIAL, B Routine 12/10/2024 9:10 AM CDT Seizure Absence (HCC) Development Delay Intellectual ZONISAMIDE LEVEL, S Routine 12/10/2024 9 :10 AM CDT Seizure Absence (HCC) Development Delay Intellectual from Last 3 Months Results * Epilepsy monitoring unit (EMU) admission (01/12/2025 [...] MMODAL NA * Video EEG monitoring (01/12/2025 12:12 PM CDT) Wilfrid BARNEY - 01/13/2025 7:16 AM CDT PROLONGED EEG [...] to a 6-second discharge of poly-spikes and [id number] at 3.8 Hz. INTERPRETATION AND CLINICAL CORRELATE [...] ORDERABLES Fi nal Result MMODAL NA * Video EEG monitoring [...] nal Result Performing Organization Address [facility] de Phone Number MMODAL NA * ECG 12 Lead (01/11/2025 9:46 AM CDT) Ventricular Rate ECG/Min 69 BPM MUSE OH Interval 166 ms MUSE QRSD Interval 86 ms MUSE QT Interval 380 ms MUSE QTC Interval 407 ms MUSE P Jackson 68 degrees MUSE R Jackson 69 degrees MUSE T Wave Jackson 78 degrees MUSE 01/11/2025 9:46 AM CDT [...] R esult Performing Organization Address [facility] Co de Phone Number MUSE NA * Zonisamide Level (12/10/2024 9:10 AM CDT) Zonisamide, S 32 10 - 40 mcg/mL 12/11/2024 9:44 PM CDT [facility] Comment: ----ADDITIONAL INFORMATION---- This test was developed and its performance characteristics determined by [facility] in a manner consistent with CLIA requirements. This test has not been cleared or approved by the U.S. Food and Drug Administration. Blood (Blood, Venous) 12/10/2024 9:10 AM CDT 12/11/2024 7:06 AM CDT Jie Mcintyre M.D. LAB BLOOD NON ADD-ON Fi nal Result [facility] [address] [place] [address] [facility] [address] [place] [address] [place] [address] * CBC with Differential, Blood (12/10/2024 9:10 [...] Mcintyre M.D. LAB BLOOD ADD-ON Final Result - [facility] [address] [place] [address], [place] [facility] in [place] [address] [place] [address] * Comprehensive Metabolic Panel (12/10/2024 9:10 AM [...] Mcintyre M.D. LAB BLOOD ADD-ON Final Result - [facility] [address] [place] [address], [place] [facility] [place] [address] [place] [address] from Last 3 Months Insurance [employer] Member Subscriber Plan / Payer (Ef fective 2022-Present) Name:VIVIAN HOLLOWAY Member ID:[id number] Relation to Subscriber:Child Name:SABINE HOLLOWAY Subscriber ID:[id number] Date of :2004 (Home) Address: [facility] [address] [place] [address] Payer ID:Not on file Type:PPO Address: [address] [address] [place] [address] [facility] Advance Directives For more information, please contact: [phone] * Full Code (Latest Code Status on File) Date Activated Date Inactivated Comments 01/11/2025 9:10 AM 01/12/2025 3:18 PM Question Answer Comments Full Code: Discussed Care Teams Retreader Relationship Specialty Start Date End Date Maryam Barker M.D. [address] [place] [phone] PCP - General Family Medicine 01/29/23
--- OUTSIDE RECORDS SUMMARY | 2025-02-26 18:08 | XMS_ITS | Clinical Summary ---
Author Organization [facility] Address [address] [place] [address] Care Team Providers Care Company Tanker Truck Driver Name Role Phone Maryam Barker MD Primary Care Provi sary Allergies Active Allergy Reactions Criticality Noted Date Comments Lamotrigine Rash Medium 11/23/2018 Medications PARoxetine (PAXIL CR) 12.5 mg extended-Release tablet Take 12.5 mg by mouth once daily. Active zonisamide (ZONEGRAN) 100 mg capsule Take 400 mg by mouth at bedtime. 11/17/2024 Active risperiDONE (RISPERDAL) 0.5 mg tabletIndication s:Agitation Take 1 Tablet (0.5 mg) by mouth two times daily. 60 Tablet 12/18/2024 10:25 AM CDT 12/18/2024 Active Active Problems Problem Noted Date Diagnosed Date Adjustment disorder with mix ed disturbance of emotions and conduct 12/20/2024 Suicide ideation 12/14/2024 Agitation 12/14/2024 Other deletions of part of a chromosome 11/18/19 Vasovagal syncope 11/17/2024 Intellectual delay 09/13/2024 Absence seizure 04/10/2023 Encounters Date Type Department Care Team Description 02/14/2025 12:30 PM CDT - 02/15/2025 11:03 AM CDT Emergency [facility] [address] [place] [address] Alberto Steven MD Leonard, Kyle Patrick, MD Schroeder, Brian Toby, MD Behavior concern (Primary Dx) Discharge Disposition: Home Self Care 02/14/2025 Travel 12/14/2024 6:59 PM CDT - 12/21/2024 11:10 AM CDT Hospital Encounter [facility] [address] [place] [address] Vishnu Urbina MD Harlow, Michael Charles, MD Anxiety (Primary Dx); Other problems related to social environment; Agitation Discharge Disposition: Home Self Care 12/14/2024 Travel 11/29/2024 6:25 PM CDT - 11/30/2024 12:27 PM CDT Emergency [facility] [address] [place] [address] Rashaad Guo MD Geiger, Nicholas Allen, DO Butler, Esther Rai MD Suicidal ideations (Primary Dx); Agitation; Homicidal ideations; Intellectual delay; Anxiety; Tachycardia Discharge Disposition: Home Self Care 11/29/2024 2:32 PM CDT - 11/29/2024 3:57 PM CDT [facility] [address] [place] [address] Pool Lowery MD Developmental delay (Primary Dx); Behavior problem Discharge Disposition: Home Self Care 11/29/2024 Travel from Last 3 Months Family History Medical History Relation Name Comments Bipolar disorder Father Heart Disease Father Cancer-pancreatic Maternal Grandmother Asthma Mother Depression Mother Diabetes Mother Thyroid Disease Mother anxiety Mother Bipolar disorder Paternal Grandfather COPD Paternal Grandmother Depression Sister Seizures Sister Relation Name Status Comments Father Maternal Grandmother Mother Paternal Grandfather Paternal Grandmother Sister Social History Tobacco Use Types Packs/Day Years Used Date Smoking Tobacco: Never Passive Smoke Exposure: Never Smokeless Tobacco: Never Tobacco Cessation:Counseling Given: No Alcohol Use Standard Drinks/Week Comments Never 0 (1 standard drink = 0.6 oz pur e alcohol) PHQ-2 Answer Date Recorded PHQ-2 TOTAL SCORE 3 12/14/2024 Social Connections Answer Date Recorded Do you often feel lonely or isolated from those around you? 4 12/14/2024 Alcohol Use Answer Date Recorded How often do you have a drink containing alcohol ? 0 12/14/2024 How many drinks containing a lcohol do you have on a typical day when you are drinking? 0 12/14/2024 How often do you have five or more drinks on one occasion? 0 12/14/2024 Financial Resource Strain Answer Date R ecorded Difficulty of Paying Living Expenses 3 12/14/2024 Difficulty of Paying Living Expenses Not on file 12/14/2024 Food Insecurity Answer Date Recorded Do you worry your food will run out before you are able to buy more? 1 12/14/2024 Transportation Needs Answer Date Record ed Does lack of transportation keep you from medica l appointments? 1 12/14/2024 Does lack of transportation keep you from work, meetings or getting things that you need? 1 12/14/2024 Housing Stability Answer Date Recorded What is your housing situation today? 1 12/14/2024 Interpersonal Safety Answer Date Record ed Are you being hit, kicked, p ushed or yelled at (see row info)? No 02/14/2025 Interpersonal Safety Abuse 12 - 18 Not on file 02/14/2025 Interpersonal Safety Ambulatory Vulnerability No t on file 02/14/2025 Utilities Answer Date Recorded Do you have trouble paying f or utilities (for example, heat, electricity, water, phone)? 1 12/14/2024 Comments Unknown Sex and Gender Information Value Date Recorded Sex Assigned at Female 12/15/2024 1:22 PM CDT Legal Sex Female 11:01 AM CDT Gender Identity Female 12/15/2024 1:22 PM CDT Sexual Orientation Straight 12/15/2024 1: 22 PM CDT Obstetrics History Last Filed Vital Signs Vital Sign Reading Time Taken Comments Blood Pressure 109/78 02/14/2025 12:41 PM CDT Pulse 83 02/14/2025 12:41 PM CDT Temperature 36.6 C (97.8 F) 02/14/2025 12:41 PM CDT Respiratory Rate 14 02/14/2025 12:41 PM CDT Oxygen Saturation 92% 02/14/2025 12:41 PM CDT Inhaled Oxygen Concentration - - Weight 63.5 kg (140 lb) 02/14/2025 12:41 PM CDT Height 165.1 cm (5' 5) 02/14/2025 12:41 PM CDT Body Mass Index 23.3 02/14/2025 12:41 PM CDT Plan of Treatment Not on file Procedures Procedure Name Priority Date/Time Associated Diagnosis Comments SCAN CORRESP-LABORATORY RESULTS 12/27/2024 4:02 AM CDT LIPID PANEL Timed 12/15/2024 8:07 AM CDT HEMOGLOBIN A1C Timed 12/15/2024 8:06 AM CDT from Last 3 Months Results * SCAN CORRESP-LABORATORY RESULTS (12/27/2024 4:02 AM CDT) Narrative 12/27/2024 4:02 AM CDT Ordered by an unspecified provider. us Other Clinical Staff OTHER Final Resul t * Lipid Panel (12/15/2024 8:07 AM CDT) CHOLESTEROL,TOTAL 140 100 - 199 mg/dL 12/15/2024 8:39 AM CDT [facility] Comment: Cholesterol, Total Reference Ranges Desirable <200 mg/dL Borderline 200-239 mg/dL High >=240 mg/dL TRIGLYCERIDES 77 <150 mg/dL 12/15/2024 8:39 AM CDT [facility] HDL CHOLESTEROL 46 >40 mg/dL 8:39 AM CDT [facility] NON-HDL CHOLESTEROL 94 <145 mg/dl 12/15/2024 8:39 AM CDT [facility] CHOL/HDL RATIO 3.04 <4.50 12/15/2024 8:39 AM CDT [facility] LDL CHOLESTEROL 79 <=130 mg/dL 12/15/2024 8:39 AM CDT [facility] VLDL CHOLESTEROL 15 <=30 mg/dL 12/15/2024 8:39 AM CDT [facility] PROVIDER ORDERED STATUS FASTING 12/15/2024 8:39 AM CDT [facility] Blood BLOOD SPECIMEN / Unknown Venipuncture / Unknown 12/15/2024 8:07 AM CDT 12/15/2024 8:11 AM CDT us Vishnu Urbina MD CHEMISTRY Final Result [facility] [address] [facility] [address] * Hemoglobin A1C Screening (12/15/2024 8:06 AM CDT) HEMOGLOBIN A1C SCREENING 5.3 <=6.4 % 12/15/2024 8:16 AM CDT [facility] Blood BLOOD SPECIMEN / Unknown Venipuncture / Unknown 12/15/2024 8:06 AM CDT 12/15/2024 8:11 AM CDT Narrative [facility] - 12/15/2024 8:16 AM CDT (<5.7%) Normal (5.7% to 6.4%) Indicates prediabetes (>=6.5%) Confirms diabetes Falsely low levels may be seen with: Recent Transfusion, Recent Significant Blood Loss, Hemolytic Diseases, or Falsely elevated levels may be seen with: Untreated Anemias, Splenectomy Vishnu Urbina MD CHEMISTRY Final Result Performing Organization Address City/[facility]/ZIP Co de Phone Number [facility] [address] [place] [address] from Last 3 Months Insurance [facility] SHARED SERVICES [facility] Advance Directives * Full Code (Latest Code Status on File) Date Activated Date Inactivated Comments 12/14/2024 7:10 PM 12/21/2024 1:32 PM Question Answer Comments Code Status Discussion: Reviewed Preferences Care Teams Company Tanker Truck Driver Relationship Specialty Start Date End Date Maryam Barker MD [address] [place] [address] PCP - General Family Practice 09/13/24
--- OUTSIDE RECORDS SUMMARY | 2025-02-26 18:08 | XMS_ITS | Encounter Summary ---
Author Organization [facility] Address [address] [place] [address] Care Team Providers Care Metalsmith Helper Name Role Phone Maryam Barker M.D. Primary Care Provider Encounter Details Date Type Department Care Team (Late st Contact Info) Description 02/16/2025 Orders Only Department of Neurology in [place], [place] [address] [place] [phone] Alberto Holcomb M.D. [address] [place] [address] Social History Tobacco Use Types Packs/Day Years [...] things needed for daily living? No 01/11/2025 [facility] Utilities Answer Date Recorded In the past 12 months has th e electric, gas, oil, or water company threatened to shut off services in your home? No 01/11/2025 Depression Answer Date Recor ded PHQ-9 Total Score (max 27) 12 09/22 Housing Stability Answer Date Recorded What is your living situation today? I have a [facility] place to live 01/11/2025 Comments [...] documented as of this encounter Care Teams Metalsmith Helper Relationship Specialty Start Date End Date Maryam Barker M.D. [address], [place] [address] PCP - General Family Medicine 01/29/23 documented as of this encounter
--- OUTSIDE RECORDS SUMMARY | 2025-02-26 18:08 | XMS_ITS | Encounter Summary ---
Author Organization [facility] Address [address] [place] [address] Care Team Providers Care Measurement Technician Name Role Phone Maryam Barker M.D. Primary Care Provider Reason for Visit * Reason Onset Date Comments Order Request 12/18/2024 Encounter Details Date Type Department Care Team ([facility] st Contact Info) Description 12/18/2024 Clinical Communication Department of Family Medicine, [facility], in [place], [place] [address] [place] [phone] Maryam Barker M.D. [address] [place] [phone] Order Request Social History Tobacco Use Types Packs/Day Years [...] things needed for daily living? No 01/11/2025 [facility] Utilities Answer Date Recorded In the past 12 months has e electric, gas, oil, or water company threatened to shut off services in your home? No 01/11/2025 Depression Answer Date Recor ded PHQ-9 Total Score (max 27) 12 09/22 Housing Stability Answer Date Recorded What is your living situation today? I have a [facility] place to live 01/11/2025 Comments No [...] Noted Time PHQ-9 Depression Total Score: 12 2 025 11:19 AM CDT documented as of this encounter Care Teams Measurement Technician Relationship Specialty Start Date End Date Maryam Barker M.D. [address] [place] [phone] PCP - General Family Medicine 01/29/23 documented as of this encounter
--- OUTSIDE RECORDS SUMMARY | 2025-02-26 18:08 | XMS_ITS | Encounter Summary ---
Author Organization [facility] Address [address] [place] [address] Care Team Providers Care Jukebox Checker Name Role Phone Maryam Barker M.D. Primary Care Provider Reason for Visit * Reason Onset Date Comments PandaDoc Form 01/19/2025 [facility] - Verification of Disability Encounter Details Date Type Department Care Team (Latest Contact Info) Description 01/19/2025 Clinical Communication Department of Family Medicine, [facility], in [place], [place] [address] [place] [phone] Maryam Barker M.D. [address] [place] [phone] PandaDoc Form ([facility] - Verification of Disability) Social History Tobacco Use Types Packs/Day Years [...] things needed for daily living? No 01/11/2025 [facility] Utilities Answer Date Recorded In the past 12 months has e electric, gas, oil, or water company threatened to shut off services in your home? No 01/11/2025 Depression Answer Date Recor ded PHQ-9 Total Score (max 27) 12 09/22 Housing Stability Answer Date Recorded What is your living situation today? I have a [facility] place to live 01/11/2025 Comments No Sex and Gender Information Value Date Recorded Sex Assigned at Female 07/22/2023 4:04 PM CDT Legal Sex Female 10:39 AM CDT Gender Identity Female 07/22/2023 4:04 PM CDT Sexual Orientation Straight 07/22/2023 4: 04 PM CDT documented as of this encounter Miscellaneous Notes * Telephone Encounter - Sulma Pisano - 01/20/2025 8:20 AM CDT Form faxed back to facility and sent for scanning. * Telephone Encounter - Peyton Landa - 01/19/2025 12:48 PM CDT Form was routed to Maryam Barker M.D. for electronic review/signature. MITER CUTTER: [facility] [employer] PHONE NUMBER: INFO REQUESTED: [facility] Verification of Disability INSTRUCTIONS: Fax completed form(s) to [phone] documented in this encounter Plan of Treatment Not on file documented as of this encounter Visit Diagnoses Not on filedocumented in this encounter Additional Health Concerns Assessment Noted Time PHQ-9 Depression Total Score: 12 025 11:19 AM CDT documented as of this encounter Care Teams Jukebox Checker Relationship Specialty Start Date End Date Maryam Barker M.D. [address] [place] [phone] PCP - General Family Medicine 01/29/23 documented as of this encounter
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
[2025-02-26 19:38] LABS: Hematocrit* 34.1 % (33.0-51.0); Hemoglobin* 11.9 gm/dL (12.0-16.0); Immature Granulocytes Abs Auto 0.02 K/uL (0.00-0.30); Immature Granulocytes Pct Auto 0.2 %; Lymphocytes Absolute Auto 1.93 K/uL (0.90-2.90); Mean Corpuscular HGB Conc 35 gm/dL (32-36); Mean Corpuscular Hemoglobin 33 pg (26-34); Mean Corpuscular Volume 95 fL (80-100); RDW Coefficient of Variation % 11.7 % (11.5-15.5); Red Blood Count* 3.61 m/uL (4.00-5.20); White Blood Count* 9.56 K/uL (4.50-11.00)
[2025-02-26 19:39] LABS: Slide Review Reflex No
[2025-02-26 19:40] LABS: Albumin* 4.3 g/dL (3.3-5.0)
[2025-02-26 19:41] LABS: Chloride* 108 mmol/L (96-114); Potassium* 3.8 mmol/L (3.6-5.1); Sodium* 141 mmol/L (135-149)
[2025-02-26 19:43] LABS: Blood Urea Nitrogen* 15 mg/dL (5-24); Creatinine* 0.7 mg/dL (0.5-1.5); Estimated Glomerular Filt Rate 127 ml/min
[2025-02-26 19:44] LABS: Alanine Aminotransferase* 15 U/L (4-35); Alkaline Phosphatase* 45 U/L (40-150); Anion Gap 9 mEq/L (7-15); Aspartate Amino Transferase* 23 U/L (12-35); Bilirubin Direct* 0.2 mg/dL (0.0-0.5); Bilirubin Total* 0.3 mg/dL (0.1-1.5); Calcium* 9.2 mg/dL (8.4-10.6); Carbon Dioxide* 24 mmol/L (20-32); Glucose* 94 mg/dL (60-115); Total Protein* 7.5 g/dL (6.0-8.3)
[2025-02-26 19:46] LABS: Acetaminophen* < 10.0 ug/mL (10.0-30.0); Ethanol* < 0.01 % (0.01-0.03); Salicylate* < 1.0 mg/dL (1.0-10)
[2025-02-26 19:57] LABS: Ur HCG Qualitative* Negative (Negative)
[2025-02-26 20:14] LABS: Cannabinoid Screen Urine Negative (Negative); Methamphetamines Screen Urine Negative (Negative); Tricyclic Antidepressant Urine Negative (Negative)
--- NOTE | 2025-02-26 23:08 | PC.NURSE ---
finished Dr Pooja John speaking to production control analyst
[2025-02-27 12:14] VITALS: BP 98/65; PULSE 69; RESP 20; O2SAT 96
--- NOTE | 2025-02-27 13:08 | PC.NURSE ---
Dad and step mom called with updated med list, 2 of meds pharmacy does not have here so they are planning to bring meds here for her, while on phone with Dad Vivian told him she is having thoughts of wanting to kill herself, pt monitored and in safe room
[2025-02-27 18:13] VITALS: BP 100/67; PULSE 86; RESP 18; TEMP 36.7; O2SAT 98
--- NOTE | 2025-02-27 18:20 | PC.NURSE ---
pt noted to be awake on camera, went into room to assess vitals and check on patient, pt states, I have my period, offered patient a shower and change of clothes and linen and she accepts, pt to [phone] for shower with staff 1:1
[2025-02-28 07:52] VITALS: BP 99/70; PULSE 72; RESP 16; TEMP 36.7; O2SAT 99
--- NOTE | 2025-02-28 19:48 | ED.NURSE ---
Per Dr. Beverly, Dad and doctor talked and Dad will be here tomorrow at Noon to pick his daughter up from ER.
[2025-03-01 04:49] LABS: Zonisamide Quantitative 40 ug/mL (10-40)
[2025-03-01 08:44] VITALS: BP 99/66; PULSE 61; RESP 16; O2SAT 98
== END 2025-03-01 10:31 | disposition home or self-care (01) ==
PROVIDERS: Family Medicine; Emergency Provider Family Medicine
DX: R45.851 Suicidal ideations (principal); R45.4 Irritability and anger
CPT/HCPCS: 36415; 80048; 80076; 80143; 80179; 80203; 80306; 81025; 82077; 85025; 99284; A9270

== ENCOUNTER 2025-03-05 09:01 | Outpatient (CLI) | payer OTHER, BC, SELFPAY | END 2025-03-05 09:02 | disposition home or self-care (01) | LOC: AMB 03-10 17:53 | PROVIDERS: Visit Provider Internal Medicine | DX: R45.851 Suicidal ideations (principal) | CPT/HCPCS: A0425; A0429 ==

== ENCOUNTER 2025-03-05 09:32 | Emergency (ER) | payer OTHER, BC, SELFPAY ==
--- OUTSIDE RECORDS SUMMARY | 2025-02-14 11:30 | XMS_ITS | Encounter Summary ---
Author Organization [facility] Address [address] [place] [address] Care Team Providers Care Concrete Batch Plant Operator Name Role Phone Maryam Barker M.D. Primary Care Provider Reason for Visit * Reason Comments Mental Health Problem Encounter Details Date Type Department Care Team (Late st Contact Info) Description 02/14/2025 12:30 PM CDT - 02/14/2025 11:59 PM CDT Emergency [facility] [address] [place] [phone] Discharge Disposition: Home or Self Care Social [...] money to buy more. Never true 01/12/20 Within the past 12 months, t he [...] things needed for daily living? No 01/11/2025 [facility] Utilities Answer Date Recorded In the past 12 months has th e [employer], gas, oil, or water [employer] threatened to shut off services in your home? No 01/11/2025 Depression Answer Date Recor ded PHQ-9 Total Score (max 27) 12 09/22 Housing Stability Answer Date Recorded What is your living situation today? I have a [facility] place to live 01/11/2025 Comments No Sex [...] mouth daily. 90 tablet 3 09/22/2024 6 risperiDONE (RisperDAL) 0.5 mg tabletIndication s:Agitation Take [...] Care Team (Late st Contact Info) Description 04/02/2025 9:30 AM SEWAGE DISPOSAL ENGINEER Appointment Department of Neurology in [place], [place] [address] [place] [phone] Dayanara Cardona P.A.-C. [address] [place] [phone] Discharge Disposition: Home or Self Care 04/02/2025 1:30 PM SEWAGE DISPOSAL ENGINEER Office Visit Department of Neurology in [place], [place] [address] [place] [phone] Alberto Holcomb M.D. [address] [place] [phone] documented as of this encounter Visit Diagnoses Not on filedocumented in this encounter Additional Health Concerns Assessment Noted Time PHQ-9 Depression Total Score: 12 025 11:19 AM CDT documented as of this encounter Care Teams Concrete Batch Plant Operator Relationship Specialty Start Date End Date Maryam Barker M.D. [address] [place] [phone] PCP - General Family Medicine 01/29/23 documented as of this encounter
--- OUTSIDE RECORDS SUMMARY | 2025-03-05 09:34 | XMS_ITS | Encounter Summary ---
Author Organization [facility] Address [address] [place] [address] Care Team Providers Care Instrument Setter Name Role Phone Maryam Barker M.D. Primary Care Provider Reason for Visit * Reason Onset Date Comments PandaDoc Form 01/19/2025 [facility] - Verification of Disability Encounter Details Date Type Department Care Team (Latest Contact Info) Description 01/19/2025 Clinical Communication Department of Family Medicine, [facility], in [place], [place] [address] [place] [phone] Maryam Barker M.D. [address] [place] [phone] PandaDoc Form ([facility] - Verification of Disability) Social History [...] things needed for daily living? No 01/11/2025 [facility] Utilities Answer Date Recorded In the past 12 months has e electric, gas, oil, or water company threatened to shut off services in your home? No 01/11/2025 Depression Answer Date Recor ded PHQ-9 Total Score (max 27) 12 09/22 Housing Stability Answer Date Recorded What is your living situation today? I have a [facility] place to live 01/11/2025 Comments No [...] to Maryam Barker M.D. for electronic review/signature. PRINCIPAL WEB DEVELOPER: [facility] [employer] PHONE NUMBER: INFO REQUESTED: [facility] Verification of Disability INSTRUCTIONS: Fax completed form(s) to [phone] documented in this encounter Plan of Treatment Upcoming Encounters Date Type Department Care Team (Late st Contact Info) Description 04/02/2025 9:30 AM RADIOISOTOPE TECHNOLOGIST Appointment Department of Neurology in [place], [place] [address] [place] [phone] Dayanara Cardona P.A.-C. [address] [place] [address] Discharge Disposition: Home or Self Care 04/02/2025 1:30 PM RADIOISOTOPE TECHNOLOGIST Office Visit Department of Neurology in [place], [place] [address] [place] [address] Alberto Holcomb M.D. [address] [place] [phone] documented as of this encounter Visit Diagnoses Not on filedocumented in this encounter Additional Health Concerns Assessment Noted Time PHQ-9 Depression Total Score: 12 025 11:19 AM CDT documented as of this encounter Care Teams Instrument Setter Relationship Specialty Start Date End Date Maryam Barker M.D. [address] [place] [phone] PCP - General Family Medicine 01/29/23 documented as of this encounter
--- OUTSIDE RECORDS SUMMARY | 2025-03-05 09:34 | XMS_ITS | Encounter Summary ---
Author Organization [facility] Address [address] [place] [address] Care Team Providers Care Supervisor Dry Cell Assembly Name Role Phone Maryam Barker M.D. Primary Care Provider Reason for Visit * Reason Onset Date Comments Order Request 12/18/2024 Encounter Details Date Type Department Care Team ([facility] st Contact Info) Description 12/18/2024 Clinical Communication Department of Family Medicine, [facility], in [place], [place] [address] [place] [phone] Maryam Barker M.D. [address] [place] [phone] Order Request Social History Tobacco Use Types [...] things needed for daily living? No 01/11/2025 [facility] Utilities Answer Date Recorded In the past 12 months has e electric, gas, oil, or water company threatened to shut off services in your home? No 01/11/2025 Depression Answer Date Recor ded PHQ-9 Total Score (max 27) 12 09/22 Housing Stability Answer Date Recorded What is your living situation today? I have a [facility] place to live 01/11/2025 Comments No [...] st Contact Info) Description 04/02/2025 9:30 AM MEAT STUFFER Appointment Department of Neurology in [place], [place] [address] [place] [phone] Dayanara Cardona P.A.-C. [address] [place] [phone] Discharge Disposition: Home or Self Care 04/02/2025 1:30 PM MEAT STUFFER Office Visit Department of Neurology in [place], [place] [address] [place] [address] Alberto Holcomb M.D. [address] [place] [phone] documented as of this encounter Visit Diagnoses Not on filedocumented in this encounter Additional Health Concerns Assessment Noted Time PHQ-9 Depression Total Score: 12 025 11:19 AM CDT documented as of this encounter Care Teams Supervisor Dry Cell Assembly Relationship Specialty Start Date End Date Maryam Barker M.D. [address] [phone] PCP - General Family Medicine 01/29/23 documented as of this encounter
--- OUTSIDE RECORDS SUMMARY | 2025-03-05 09:34 | XMS_ITS | Clinical Summary ---
Author Organization [facility] Address [address] [place] [id number] Care Team Providers Care Pump Tester Name Role Phone Maryam Barker MD Primary [...] CDT - 02/15/2025 11:03 AM CDT Emergency [facility] [address] [place] [address] Alberto Steven MD Leonard, Kyle Patrick, MD Schroeder, Brian Toby, MD Behavior concern (Primary Dx) Discharge Disposition: Home Self Care 02/14/2025 Travel 12/14/2024 6:59 PM CDT - 12/21/2024 11:10 AM CDT Hospital Encounter [facility] [address] [place] [address] Vishnu Urbina MD Harlow, Michael Charles, MD Anxiety (Primary Dx); Other problems related to social environment; Agitation Discharge Disposition: Home Self Care 12/14/2024 Travel from Last 3 Months Family History [...] - 199 mg/dL 12/15/2024 8:39 AM CDT [facility] Comment: Cholesterol, Total Reference Ranges Desirable <200 mg/dL Borderline 200-239 mg/dL High >=240 mg/dL TRIGLYCERIDES 77 <150 mg/dL 12/15/2024 8:39 AM CDT [facility] HDL CHOLESTEROL 46 >40 mg/dL 8:39 AM CDT [facility] NON-HDL CHOLESTEROL 94 <145 mg/dl 12/15/2024 8:39 AM CDT [facility] CHOL/HDL RATIO 3.04 <4.50 12/15/2024 8:39 AM CDT [facility] LDL CHOLESTEROL 79 <=130 mg/dL 12/15/2024 8:39 AM CDT [facility] VLDL CHOLESTEROL 15 <=30 mg/dL 12/15/2024 8:39 AM CDT [facility] PROVIDER ORDERED STATUS FASTING 12/15/2024 8:39 AM CDT [facility] Blood BLOOD SPECIMEN / Unknown Venipuncture / Unknown 12/15/2024 8:07 AM CDT 12/15/2024 8:11 AM CDT Vishnu Urbina MD CHEMISTRY Final Result Performing Organization Address City/State/[facility] Co de Phone Number [facility] [address] [place] [address] * Hemoglobin A1C Screening (12/15/2024 8:06 AM CDT) HEMOGLOBIN A1C SCREENING 5.3 <=6.4 % 12/15/2024 8:16 AM CDT [facility] Blood BLOOD SPECIMEN / Unknown Venipuncture / Unknown 12/15/2024 8:06 AM CDT 12/15/2024 8:11 AM CDT Narrative [facility] - 12/15/2024 8:16 AM CDT (<5.7%) Normal (5.7% to 6.4%) Indicates prediabetes (>=6.5%) Confirms diabetes Falsely low levels may be seen with: Recent Transfusion, Recent Significant Blood Loss, Hemolytic Diseases, or Falsely elevated levels may be seen with: Untreated Anemias, Splenectomy us Vishnu Urbina MD CHEMISTRY Final Result [facility] [address] [place] [id number] from Last 3 Months Insurance [facility] Advance Directives * Full Code (Latest Code Status on File) Date Activated Date Inactivated Comments 12/14/2024 7:10 PM 12/21/2024 1:32 PM Question Answer Comments Code Status Discussion: Reviewed Preferences Care Teams Pump Tester Relationship Specialty Start Date End Date Maryam Barker MD [address] [place] [address] PCP - General Family Practice 09/13/24
--- OUTSIDE RECORDS SUMMARY | 2025-03-05 09:34 | XMS_ITS | Clinical Summary ---
Author Organization [facility] Address [address] [place] [address] Care Team Providers Care Inspector Repairer Sandstone Name Role Phone Maryam Barker M.D. Primary Care Provider Source Comments Patient records contain information from all sites at [facility]. For routine questions regarding patient records, call [phone] during business hours, M-F 8:00 AM - 5:00 PM Central Time. Record requests for emergency care only can be directed to [phone] at any time.[facility] Allergies Active Allergy Reactions Criticality Noted Date [...] 02/16/2025 Orders Only Department of Neurology in [place], [place] [address] [place] [address] Alberto Holcomb M.D. 02/14/2025 12:30 PM CDT - 02/14/2025 11:59 PM CDT Emergency [facility] [address] [place] [phone] Discharge Disposition: Home or Self Care 01/19/2025 Clinical Communication Department of Family [facility], [facility], in [place], [place] [address] [phone] Maryam Barker M.D. [facility]) 01/11/2025 7:43 AM CDT - 01/12/2025 1:08 PM CDT Hospital Encounter [facility] Second floor [address] [place] [address] Dustin Cash M.D. 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 Order Request 12/10/2024 9:00 AM CDT - 12/10/2024 11:59 PM CDT Hospital Encounter Department of Laboratory Medicine in [place], [place] [address] [place] [phone] Jie Mcintyre M.D. Seizure Absence (HCC); Development Delay Intellectual Discharge Disposition: Home or Self Care from [...] 3 kirus ADD / ADHD Brother 4 jehovah's witness Asthma Brother 4 jehovah's witness Bipolar disorder Father 1 Foreign Suicide attempts [...] gr ew learning disorder before graduating in Thyroid disease Mother Sabine Rheumatoid arthritis (RA) [...] Alive Brother 3 kirus Alive Brother 4 jehovah's witness Alive Father 1 Foreign Father 2 elijah [...] things needed for daily living? No 01/11/2025 [facility] Utilities Answer Date Recorded In the past 12 months has [employer] electric, gas, oil, or water company threatened to shut off services in your home? No 01/11/2025 Depression Answer Date Recor ded PHQ-9 Total Score (max 27) 12 09/22 Housing Stability Answer Date Recorded What is your living situation today? I have a [facility] place to live 01/11/2025 Comments No [...] 01/11/2025 7:58 AM CDT Plan of Treatment Upcoming Encounters Date Type Department Care Team (Late st Contact Info) Description 04/02/2025 9:30 AM [facility] Appointment Department of Neurology in [place], [place] [address] [place] [phone] Dayanara Cardona P.A.-C. [address] [place] [phone] Discharge Disposition: Home or Self Care 04/02/2025 1:30 PM [facility] Office Visit Department of Neurology in [place], [place] [address] [place] [phone] Alberto Holcomb M.D. [address] [place] [address] Health Maintenance Due Date Last Done Comments [...] Well Child Check-Up 10/13/2024 Well Child Check-Up ([facility]) 10/13/2024 COVID-19 Vaccine ( season) 2024 Influenza [...] [place] and agrees with this interpretation. us Alberto Holcomb M.D. NEUROLOGY ORDERABLES Suzanne bryant [...] to a 6-second discharge of poly-spikes and cyng-emtcc-fciis at 3.8 Hz. INTERPRETATION AND CLINICAL CORRELATE [...] ORDERABLES Fi nal Result MMODAL NA * ECG 12 Lead (01/11/2025 9:46 AM CDT) Ventricular Rate ECG/Min 69 BPM MUSE DC Interval 166 ms MUSE QRSD Interval 86 ms MUSE QT Interval 380 ms MUSE QTC Interval 407 ms MUSE P [place] 68 degrees MUSE R [place] 69 degrees MUSE T Wave [place] 78 degrees MUSE 01/11/2025 9:46 AM CDT 01/11/2025 9:49 AM CDT Impressions MUSE - 01/11/2025 9:49 AM CDT Sinus rhythm with sinus arrhythmia Otherwise normal ECG No previous ECGs available Reviewed by AMNA Winston Narrative Procedure Note Pako Mansfield M.D. - 01/11/2025 IMPRESSION: Sinus rhythm with sinus arrhythmia Otherwise normal ECG No previous ECGs available Reviewed by AMNA Winston us Dayanara Cardona P.A.-C. ECG ORDERABLES Final R esult MUSE NA * Zonisamide Level (12/10/2024 9:10 AM CDT) Pathologist [facility] Zonisamide, S 32 10 - 40 mcg/mL 12/11/2024 9:[address] [facility] Comment: ----ADDITIONAL INFORMATION---- This test was developed and its performance characteristics determined by [facility] in a manner consistent with CLIA requirements. This test has not been cleared or approved by the U.S. Food and Drug Administration. Blood (Blood, Venous) 12/10/2024 9:10 AM CDT 12/11/2024 7:06 AM CDT Jie Mcintyre M.D. LAB BLOOD NON ADD-ON Fi nal Result Performing Organization Address City/[facility]/ZIP Co de Phone Number [facility] [address] [place] [address] [facility] [address] [place] [address] [place] [address] * CBC with Differential, Blood (12/10/2024 9:10 AM CDT) Pathologist [facility] Hemoglobin 12.9 11.6 - 15.0 g/dL 12/10/2024 [...] Mcintyre M.D. LAB BLOOD ADD-ON Final Result [facility] [address] [place] [address], [facility] OWAT [facility] in [place] [address] [place] [address] * Comprehensive Metabolic Panel (12/10/2024 9:10 AM [...] Mcintyre M.D. LAB BLOOD ADD-ON Final Result [facility] [address] [place] [address], [place] OWAT [facility] in [place] [address] [place] [address] from Last 3 [place] [address] [employer] Member Subscriber Plan / Payer (Ef fective 2022-Present) Name:ADELAVIVIAN Member ID:[id number] Relation to Subscriber:Child Name:LUPILLO HOLLOWAYQUETE Dawson Subscriber ID:[id number] Date of :2004 (Home) Address: [address] [place] [address] Payer ID:Not on file Type:PPO Address: [address] [address] [place] [address] [facility] [place] [address] Advance Directives For more information, please contact: [phone] * Full Code (Latest Code Status on File) Date Activated Date Inactivated Comments 01/11/2025 9:10 AM 01/12/2025 3:18 PM Question Answer Comments Full Code: Discussed Care Teams Inspector Repairer Sandstone Relationship Specialty Start Date End Date Maryam Barker M.D. [address] [place] [phone] PCP - General Family Medicine 01/29/23
--- OUTSIDE RECORDS SUMMARY | 2025-03-05 09:34 | XMS_ITS | Encounter Summary ---
Author Organization [facility] Address [address] [place] [address] Care Team Providers Care Line Server Name Role Phone Maryam Barker M.D. Primary Care Provider Encounter Details Date Type Department Care Team (Late st Contact Info) Description 02/16/2025 Orders Only Department of Neurology in [place], [place] [address] [place] [phone] Alberto Holcomb M.D. [address] [place] [address] Social History Tobacco Use Types Packs/Day Years [...] things needed for daily living? No 01/11/2025 [facility] Utilities Answer Date Recorded In the past 12 months has th e electric, gas, oil, or water [employer] threatened to shut off services in your home? No 01/11/2025 Depression Answer Date Recor ded PHQ-9 Total Score (max 27) 12 09/22 Housing Stability Answer Date Recorded What is your living situation today? [facility] 01/11/2025 Comments No [...] st Contact Info) Description 04/02/2025 9:30 AM MANAGER VALUATION Appointment Department of Neurology in [place], [place] [address] [place] [phone] Dayanara Cardona P.A.-C. [address] [place] [phone] Discharge Disposition: Home or Self Care 04/02/2025 1:30 PM MANAGER VALUATION Office Visit Department of Neurology in [place], [place] [address] [place] [address] Alberto Holcomb M.D. [address] [place] [address] documented as of this encounter Visit Diagnoses Not on filedocumented in this encounter Additional Health Concerns Assessment Noted Time PHQ-9 Depression Total Score: 12 025 11:19 AM CDT documented as of this encounter Care Teams Line Server Relationship Specialty Start Date End Date Maryam Barker M.D. [address] [place] [phone] PCP - General Family Medicine 01/29/23 documented as of this encounter
[2025-03-05 09:41] VITALS: BP 97/65; PULSE 82; RESP 14; TEMP 36.9; O2SAT 99
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
[2025-03-05 14:50] LABS: Cannabinoid Screen Urine Negative (Negative); Methamphetamines Screen Urine Negative (Negative); Tricyclic Antidepressant Urine Negative (Negative)
[2025-03-05 15:08] VITALS: BP 94/63; PULSE 73; RESP 12; TEMP 36.8; O2SAT 100
[2025-03-05 15:15] LABS: Hematocrit* 36.2 % (33.0-51.0); Hemoglobin* 12.5 gm/dL (12.0-16.0); Immature Granulocytes Abs Auto 0.01 K/uL (0.00-0.30); Immature Granulocytes Pct Auto 0.1 %; Lymphocytes Absolute Auto 1.84 K/uL (0.90-2.90); Mean Corpuscular HGB Conc 35 gm/dL (32-36); Mean Corpuscular Hemoglobin 33 pg (26-34); Mean Corpuscular Volume 95 fL (80-100); RDW Coefficient of Variation % 11.8 % (11.5-15.5); Red Blood Count* 3.80 m/uL (4.00-5.20); White Blood Count* 7.09 K/uL (4.50-11.00)
[2025-03-05 15:17] LABS: Slide Review Reflex No
[2025-03-05 15:22] LABS: Albumin* 4.6 g/dL (3.3-5.0); Chloride* 102 mmol/L (96-114); Potassium* 3.8 mmol/L (3.6-5.1); Sodium* 140 mmol/L (135-149)
[2025-03-05 15:24] LABS: Blood Urea Nitrogen* 16 mg/dL (5-24); Creatinine* 0.9 mg/dL (0.5-1.5); Estimated Glomerular Filt Rate 94 ml/min
[2025-03-05 15:25] LABS: Alanine Aminotransferase* 16 U/L (4-35); Alkaline Phosphatase* 44 U/L (40-150); Anion Gap 11 mEq/L (7-15); Aspartate Amino Transferase* 22 U/L (12-35); Bilirubin Direct* 0.1 mg/dL (0.0-0.5); Bilirubin Total* 0.3 mg/dL (0.1-1.5); Calcium* 9.0 mg/dL (8.4-10.6); Carbon Dioxide* 27 mmol/L (20-32); Glucose* 103 mg/dL (60-115); Total Protein* 8.0 g/dL (6.0-8.3)
--- NOTE | 2025-03-05 16:49 | PC.SOCIAL ---
Social work: Per MD order for in-pt mental health placement, reviewed notes from [facility] and nursing regarding previous placement attempts. Previous notes indicated [facility] and [facility] all reviewed and declined pt due to acuity. [facility] is still reviewing. No other facilities contacted earlier today had beds available. orchid worker reached out again to facilities who had previously not had beds available or were not contacted earlier with the following results: 1. [facility] [place] [phone][place] unable to [place] pt with information provided by phone as acuity was too high. 2. [facility] [phone] - left message requesting call back if bed available. 3. [facility] [phone] - no beds available. 4. [facility] [phone] - no beds available. 5. [facility] [phone] - Facility requested packet of information for review be faxed to intake at [phone].
[2025-03-05 17:18] LABS: Ur HCG Qualitative* Negative (Negative)
[2025-03-05 20:06] VITALS: BP 90/55; PULSE 58; RESP 12; TEMP 36.9; O2SAT 99
[2025-03-06 06:19] VITALS: BP 99/61; PULSE 64; RESP 17; TEMP 36.6; O2SAT 98
[2025-03-06 11:07] VITALS: BP 99/61; PULSE 64; RESP 17; TEMP 36.6
== END 2025-03-06 11:08 | disposition home or self-care (01) ==
PROVIDERS: Family Medicine; Emergency Provider Family Medicine
DX: R45.851 Suicidal ideations (principal)
CPT/HCPCS: 36415; 80048; 80076; 80306; 81025; 85025; 99284; 99285; Q3014; A9270

== ENCOUNTER 2025-03-07 16:45 | Outpatient (CLI) | payer OTHER, BC, SELFPAY | END 2025-03-07 16:46 | disposition home or self-care (01) | LOC: AMB 03-10 19:26 | PROVIDERS: Visit Provider Emergency Medicine | DX: R06.09 Other forms of dyspnea (principal); R05.9 Cough, unspecified | CPT/HCPCS: A0998 ==